=== PATIENT | female | born 1930 | race Caucasian/White ===

== ENCOUNTER 2017-05-29 12:31 | Inpatient (IN) | payer MEDICARE, MEDICAID ==
[~2017-05-29] VITALS: Ht 167.6 cm; Wt 68.0 kg
[~2017-05-29 12:31] MED LIST: ACEPHEN650 M1 RC; AKWA TEARS EYE15 ML OP; AKWA TEARS EYE15 ML OPHTHALMIC; ALBUTEROL0.63 MG/3 IH; ALBUTEROL2.5 MG/0.5 INH; AMLODIPINE BESY10 MG PO; ANTIVERT25 MG PO; APAP500; APAP500 PO; ASPIR 8181 MG PO; ASPIRIN EC325 M1 PO; ASPIRIN81 M2 PO; AUGMENTIN 875875 MG PO; AZO CRANBERRY1 EAC1 PO; B12INJ IM; BENADRYL25 MG PO; BICARSIM80 MG PO; BISACODYL SUPP10 MG RECTAL; CALCIUM 600 +1 EAC9 PO; CLEOCIN HCL300 MG PO; CLOTRIMAZOLE-BE15 GM TP; COLACE 100 MG100 MG PO; COLACE100 MG PO; DAILY VITE PO; DETROL LA4 MG PO; DOXYCYCLINE 10100 M1 PO; DULCOLAX5 MG PO; ELOCON15 G1 TOP; EUCERIN CREME57 GM TP; FEVERALL JR 32325 MG RE; FEVERALL325 MG RECTAL; FIORICET PO; FLEXERIL PO; FLORANEX TABLE1 EACH PO; FOLGARD OS TAB1 EACH PO; GLIPIZIDE 10 MG10 MG PO; GLIPIZIDE ER10 MG PO; GLIPIZIDE XL10 MG PO; GUIATUSSIN DAC473 ML PO; HYDROCODONE-AP1 EAC6 PO; INSULIN REGULAR; K-DUR10 ME1 PO; KLOR-CON 10 ER10 MEQ PO; LANTUS SOL100 UNIT/1 SQ; LANTUS100 UNIT/M SUBQ; LASIX 40 MG TAB40 M2 PO; LASIX 80 MG TAB80 M1 PO; LEVAQUIN 750 M750 MG PO; LISINOPRIL2.5 MG PO; LORTAB 5 MG/5001 TA1 PO; LOVASTAT40 PO; LOVASTATIN 20 M20 MG PO; MECLIZINE HCL12.5 MG PO; MILK OF MA2400 MG/10 PO; MIRALAX17 GM PO; MIRAPEX0.25 MG PO; NAMENDA 10 MG T10 MG PO; NOVOLIN N100 UNIT/1 SC; NOVOLIN N100 UNIT/3; NOVOLIN R100 UNIT/1 SC; NOVOLIN R100 UNIT/3; NOVOLOG100 UNIT/1 SUBQ; NPH; NYAMYC15 GM TOP; ONDANSETRON HCL4 M2 PO; OS-CAL 500+D C1 EACH PO; OYSTER SHELL C1 EA14 PO; OYSTER SHELL+D1 EAC1 PO; PEPCID20 MG PO; PHENERGAN50 MG/1 M1 IM; PHENERGAN50 MG/1 M1 IV; PREDNISONE 10 M10 MG PO; PRILOSEC 20 MG20 MG PO; ROBITUSSIN100 MG/53 PO; SENOKOT-S TABL1 EACH PO; SERTRALINE HCL25 M1 PO; SUDOGEST30 MG/5 ML PO; THEREMS-M1 EACH PO; THEREMS1 EAC1 PO; VENELEX OINTMEN60 GM TOP; VICKS VAPORUB170 G1 TOP; VICKS VAPORUB170 GM TP; VITAMIN A & D OI2 OZ TOP; VITAMIN E400 UNIT PO; VITAMINC500 PO; ZANTAC 150MG T150 MG PO; ZOLOFT25 MG PO; [UNRECOGNIZED DRUG - OTHER]; [UNRECOGNIZED DRUG - OTHER]; [UNRECOGNIZED DRUG - OTHER]; [UNRECOGNIZED DRUG - OTHER] TOP; [UNRECOGNIZED DRUG - OTHER] TOP
[2017-05-29 12:41] VITALS: BP 134/41
[2017-05-29] MEDS ORDERED: DOXYCYCLINE 10100 MG PO (12:52)
[2017-05-29] MEDS ORDERED: BISACODYL10 MG PO (12:53)
[2017-05-29] MEDS ORDERED: GLUTOSE GEL 1515 G1 PO (12:54)
[2017-05-29] MEDS ORDERED: VENELEX OINTMEN60 GM TOP (12:54)
[2017-05-29] MEDS ORDERED: ANTIVERT25 MG PO (12:54)
[2017-05-29] MEDS ORDERED: ARTIFICIAL TEA1 EACH OPHTHALMIC (12:55)
[2017-05-29] MEDS ORDERED: LEVEMIR SUBQ (12:55)
[2017-05-29] MEDS ORDERED: LIPITOR 20 MG T20 M1 PO (12:55)
--- NOTE | 2017-05-29 12:55 | NUR ---
SPOKE WITH PT NIKOLAS WILSON AND VERBAL PERMISSION GIVEN TO TREAT PT.
[2017-05-29 13:29] LABS: ABSOLUTE BASOPHILS 0.1 thou/uL (0.0-0.2); ABSOLUTE EOSINOPHILS 0.5 thou/uL (0.0-0.7); ABSOLUTE LYMPHOCYTES 2.7 thou/uL (0.8-5.3); ABSOLUTE MONOCYTES 1.3 thou/uL (0.0-1.2); ABSOLUTE NEUTROPHILS 8.7 thou/uL (1.6-8.1); BASOPHILS 0.8 %; EOSINOPHILS 3.7 %; HEMOGLOBIN 10.2 gm/dL (12.0-15.0); LYMPHOCYTES 20.4 %; MCH 29.9 pg (26.0-34.0); MCV 90.4 fL (80.0-100.0); MONOCYTES 9.6 %; MPV 8.5 fl. (7.2-11.1); NUCLEATED RBCS 0 /100WBC; PLATELET COUNT* 319 thou/uL (150-400); POLYS 65.5 %; RBC 3.43 mil/uL (4.20-5.00); RDW-CV 13.6 % (10.5-14.5); WBC 13.3 thou/uL (4.0-11.0)
[2017-05-29 13:38] LABS: CALCIUM 9.6 mg/dL (8.5-10.1); CREATININE 1.3 mg/dL (0.6-1.3)
[2017-05-29 13:39] LABS: POTASSIUM 5.9 mmol/L (3.5-5.1)
[2017-05-29 13:42] LABS: ALBUMIN 2.5 g/dL (3.4-5.0); TOTAL BILIRUBIN 0.3 mg/dL (<0.1-1.0); TOTAL PROTEIN 7.1 g/dL (6.4-8.2)
[2017-05-29 14:41] VITALS: BP 149/54
--- NOTE | 2017-05-29 15:41 | NUR ---
PATIENT ADMITTED FROM ER TO ROOM 103. ALERT AND ORIENTED X3. FORGETFUL- H/O DEMENTIA. ADMISSION HISTORY CHARTED TO BEST ABILITY DUE TO DEMENTIA. MULTIPLE WOUNDS NOTED. REDNESS UNDER BREAST AND GROINS. LEFT GREAT TOE NECROTIC, DRY. OPEN SORE LEFT BUTTOCK. PATIENT INCONTINENT OF BOTH URINE AND STOOL UPON ARRIVAL. MICHELE AREA CLEANED, AND BARRIER CREAM APPLIED. PATIENT POSITIONED ON RIGHT SIDE WITH HEELS ELEVATED. CULTURE OF TOE SENT TO LAB. BED ALARM SET. CALL LIGHT WITHIN REACH. WILL CONTINUE TO MONITOR.
--- NOTE | 2017-05-29 17:02 | NUR ---
PATIENT REMAINS AT BASELINE ORIENTATION. DENIES PAIN. ID AND PODIATRY CONSULTS. IVF INFUSING ORDERED. TOLERATING DINNER. INCONTINENT OF LARGE AMOUNT OF URINE. KAYEXALTE ORDERED FOR ELEVATED POTASSIUM. REPOSITIONED EVERY 2 HOURS. WOUND CARE CONSULT PLACED. NYSTATIN ORDERED. BED ALARM SET. WILL CONTINUE TO MONITOR.
[2017-05-30 00:59] VITALS: BP 105/43
[2017-05-30 04:54] LABS: CALCIUM 9.1 mg/dL (8.5-10.1); CREATININE 1.4 mg/dL (0.6-1.3)
[2017-05-30 05:12] LABS: ABSOLUTE BASOPHILS 0.1 thou/uL (0.0-0.2); ABSOLUTE EOSINOPHILS 0.4 thou/uL (0.0-0.7); ABSOLUTE LYMPHOCYTES 3.2 thou/uL (0.8-5.3); ABSOLUTE MONOCYTES 1.5 thou/uL (0.0-1.2); ABSOLUTE NEUTROPHILS 7.6 thou/uL (1.6-8.1); BASOPHILS 0.9 %; EOSINOPHILS 2.9 %; HEMATOCRIT 28.1 % (37.0-47.0); HEMOGLOBIN 9.5 gm/dL (12.0-15.0); MCHC 33.7 g/dL (28.0-37.0); MCV 89.1 fL (80.0-100.0); MONOCYTES 11.5 %; MPV 8.8 fl. (7.2-11.1); NUCLEATED RBCS 0 /100WBC; PLATELET COUNT* 304 thou/uL (150-400); POLYS 59.7 %; RBC 3.15 mil/uL (4.20-5.00); RDW-CV 13.4 % (10.5-14.5); WBC 12.7 thou/uL (4.0-11.0)
[2017-05-30 05:20] LABS: POTASSIUM 4.5 mmol/L (3.5-5.1)
[2017-05-30 07:30] VITALS: BP 184/58
[2017-05-30 07:55] VITALS: BP 184/58
--- NOTE | 2017-05-30 07:56 | NUR ---
PATIENT HAS SLEPT WELL THROUGHOUT THE NIGHT WITHOUT ANY ISSUES. PAIN HAS BEEN WELL CONTROLLED AND MEDICATION GIVEN AND CHARTED. PATIENT HAS REMAINED NON WEIGHT BEARING TO RIGHT LEG. VSS ON RA. IV IN LEFT FOREARM-SL. DRESSING TO RIGHT ANKLE IS C/D/I. FALL PRECAUTIONS IN PLACE AND HOURLY ROUNDS MADE. WILL CONTINUE WITH PLAN OF CARE AND NURSING TO MONITOR.
--- NOTE | 2017-05-30 08:01 | NUR ---
PATIENT HAS SLEPT WELL THROUGHOUT THE NIGHT WITHOUT ANY ISSUES. NO C/O PAIN. VSS ON RA. PATIENT HAS REMAINED NPO SINCE MIDNIGHT. PATIENT REPOSITIONED EVERY 2 HRS. PATIENT HAS BEEN INCONTINENT OF BOWEL AND BLADDER AND MICHELE CARE PERFORMED WELL BED CHANGES. IV IN LEFT WRIST- NS @ 100ML/HR. IV ABT GIVEN WITHOUT ANY ADVERSE SIDE EFFECTS NOTED. FALL PRECAUTIONS IN PLACE. HOURLY ROUNDS MADE. WILL CONTINUE WITH PLAN OF CARE.
--- NOTE | 2017-05-30 12:12 | NUR ---
WOUND CARE NOTE: CONSULT RECEIVED FOR PRESSURE ULCER. PATIENT PRESENTS WITH A HEALING STAGE 3 PRESSURE ULCER TO HER LEFT BUTTOCK AT LEFT ISCHIAL TUBEROSITY. WOUND MEASURES 0.8X0.3X0.1, SUBQ TISSUE PRESENT IN WOUND BED. WOUND BED IS MOIST, YELLOW. MICHELE-WOUND WITH NEW EPITHELIUM. WOUND WAS CLEANSED WITH WOUND CLEANSER, PATTED DRY. APPLIED AQUACEL AG TO WOUND BED AND SECURED WITH BORDERED FOAM. APPEARS THAT PATIENT SITS A LOT AT HOME, MULTIPLE AREAS OF SCAR TISSUE. BELIEVE SHE HAD PREVIOUS PRESSURE ULCERS TO HER RIGHT ISCHIAL TUBEROSITY AND SACROCOCCYGEAL AREA. PINK, BLANCHABLE. LEFT GREAT TOE WITH DRY, BLACK, STABLE ESCHAR. MICHELE-WOUND IS EDEMATOUS WITH ERYTHEMA. PLANS FOR SURGERY WITH DR. REEVES TODAY. RECOMMEND Q2 HOUR TURN, KEEP OFF WOUNDS LIMIT HOB <30 DEGREES FREQUENT INCONTINENCE CHECKS-HAD A BM SMEAR WHILE ASSESSING. CLEANSED AND PLACED NEW CHUX ENCOURAGE GOOD NUTRITION AND HYDRATION TIGHT BLOOD GLUCOSE CONTROL WAFFLE CUSHION IF UP IN CHAIR ELEVATE HEELS OFF BED
[2017-05-30 12:30] VITALS: BP 181/73
--- NOTE | 2017-05-30 12:52 | EKG ---
[place] [address] ELECTROCARDIOGRAM REPORT Name: TARSHA VILLA Room: [address] ADM IN M.R.#: [id number] Admission: 05/29/17 Attend Phys: Sharla Del Valle Discharge: Date of : 31 Report #: [id number] THIS REPORT FOR: //name// [facility] Test Date: 2017-05-30 Test Time: 12:25:35 Pat Name: TARSHABRENDEN VILLA Department: Room: [address] Gender: F Multiple Sclerosis Nurse: ROSA : 1930 Requested By: Jaswant Aguirre Order Number: [id number] Reading MD: Prosper Mckeon Measurements Intervals [place] Rate: 89 P: 47 IL: 175 QRS: 16 QRSD: 88 T: 31 QT: 378 QTc: 460 Interpretive Statements Sinus rhythm Multiple ventricular premature complexes Minimal ST depression, lateral leads Compared to ECG 04/21/2016 22:01:14 Ventricular premature complex(es) now present Sinus tachycardia no longer present Prolonged QT interval no longer present Electronically Signed On 05-30-2017 12:52:03 FOREST TECHNICIAN by Prosper Mckeon [email or web address] <ELECTRONICALLY SIGNED> By: Prosper Mckeon MD, FAC 05/30/17 1252 1225 1225 Prosper Mckeon MD, [facility] /EPI
--- NOTE | 2017-05-30 13:26 | CON ---
[address] [address] CONSULTATION Name: TARSHA VILLA Room: [address] IN ..#: [id number] Admission: 05/29/17 Attend Phys: Sharla Del Valle Discharge: Date of : 31 Report #: [id number] THIS REPORT FOR: //name// CC: Kiet Coronel CHIEF COMPLAINT AND HISTORY OF PRESENT ILLNESS: This is an 86-year-old female who was admitted to the hospital through the emergency room on 05/29/2017, with a right great toe wound with cellulitis. The patient has advanced dementia, and is unable to relate any past medical history regarding it. She says the area is painful with direct touch, but otherwise does not hurt her. She has been afebrile with no constitutional symptoms. [facility] a [facility] facility. I reviewed her allergies and medications in the electronic medical record. She is currently on parenteral vancomycin per infectious disease. Her blood cultures are negative thus far. Culture of the left great toe is pending with no organism seen on Gram stain. Left foot x-rays show bone destruction at the lateral cortex of the terminal tuft of the distal phalanx, which could be focal demineralization versus infection. I personally reviewed the radiology images and there is bone destruction underneath the dorsal interphalangeal wound with cortical destruction consistent with infectious sequestrum of the proximal phalange of the left hallux. This is directly underlying the dorsal hallux interphalangeal joint wound. This is a separate lesion than the one described in the radiology report, which is at the distal lateral tuft of the distal phalange. LABS: WBC 12.7, RBC 3.15, hemoglobin 9.5, hematocrit 28.1, and platelets 304. BUN 25, creatinine 1.4, and glucose 70. PHYSICAL EXAMINATION: There is a large dry necrotic wound overlying the left hallux interphalangeal joint, this is at the dorsal aspect with localized inflammation and edema consistent with deep tissue infection. The wound has a dry, black-brown eschar with no drainage or culturable material. The foot is warm with a palpable posterior tibial pulse. I can Doppler both the dorsalis pedis and posterior tibial pulses bilaterally with the Doppler unit. There is no pallor or cyanosis to either extremity. There is a flexion hammertoe deformity of the left great toe at the interphalangeal joint. I cannot visualize the bone, but the wound is clearly necrotic through the subcutaneous tissue layer based on the thickness of the eschar. Toenails are dystrophic without paronychia. IMPRESSION: Osteomyelitis, left great toe at dorsal hallux interphalangeal joint with deep tissue infection. PLAN: I recommend amputation of the left great toe at the first MTP joint with primary closure. I feel that just a local debridement of the wound and bone will require a protracted measure of wound care with possible reinfection of the bone and subsequent hallux amputation anyway. [place] [address] CONSULTATION Name: TARSHA VILLA Room: [address] IN [facility]#: [id number] Admission: 05/29/17 Attend Phys: Sharla Del Valle Discharge: Date of : 31 Report #: [id number] Dopplers for long-term wound healing potential and consult vascular surgery regarding same. I discussed with, Dr. Coronel, internal medicine today. We will obtain informed consent from the durable power of water pollution scientist. <ELECTRONICALLY SIGNED> By: Jaswant Aguirre DPM 05/30/17 1326 1034 [id number] Aguirre DPM /derian
[2017-05-30 13:50] VITALS: BP 181/73
--- NOTE | 2017-05-30 14:15 | NUR ---
PATIENT TAKEN TO SURGERY AT THIS TIME. CONSENTS ON CHART AND VERBAL CONSENT OBTAINED BY PATIENT'S DPOA OVER THE TELEPHONE. PATIENT TAKEN VIA BED.
--- NOTE | 2017-05-30 15:42 | NUR ---
PT OFF UNIT FOR SURGERY. 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 DTR/VALENTIN IS DPOA. WILL FOLLOW
[2017-05-30 17:20] VITALS: BP 188/66
--- NOTE | 2017-05-30 18:46 | NUR ---
PATIENT HAS BEEN A/O TO PERSON AND PLACE THIS SHIFT, PLEASANTLY CONFUSED. PATIENT TAKEN TO SURGERY THIS AFTERNOON FOR TOE AMPUTATION. PATIENT HAS DENIED PAIN. INCONTINENT OF URINE AND STOOL THIS SHIFT. MICHELE-CARE PROVIDED WITH EVERY INCONTINENT EPISODE. REPOSITIONED EVERY 2 HOURS. HEELS ELEVATED. IV FLUIDS AND ANTIBIOTICS GIVEN ORDERED. BLOOD SUGARS MONITORED. FALL PRECUATIONS IN PLACE. CALL LIGHT WITHIN REACH. WILL CONTINUE WITH PLAN OF CARE.
[2017-05-31 00:27] VITALS: BP 156/47
[2017-05-31 04:30] LABS: ABSOLUTE BASOPHILS 0.1 thou/uL (0.0-0.2); ABSOLUTE EOSINOPHILS 0.5 thou/uL (0.0-0.7); ABSOLUTE LYMPHOCYTES 3.3 thou/uL (0.8-5.3); ABSOLUTE MONOCYTES 1.2 thou/uL (0.0-1.2); ABSOLUTE NEUTROPHILS 6.1 thou/uL (1.6-8.1); BASOPHILS 1.1 %; EOSINOPHILS 4.7 %; HEMATOCRIT 27.9 % (37.0-47.0); LYMPHOCYTES 29.4 %; MCH 29.2 pg (26.0-34.0); MCHC 32.2 g/dL (28.0-37.0); MCV 90.6 fL (80.0-100.0); MPV 8.3 fl. (7.2-11.1); NUCLEATED RBCS 0 /100WBC; PLATELET COUNT* 270 thou/uL (150-400); POLYS 53.8 %; RBC 3.08 mil/uL (4.20-5.00); RDW-CV 13.3 % (10.5-14.5); WBC 11.3 thou/uL (4.0-11.0)
[2017-05-31 04:32] VITALS: BP 189/58
[2017-05-31 04:48] LABS: CALCIUM 7.9 mg/dL (8.5-10.1); CREATININE 1.1 mg/dL (0.6-1.3); POTASSIUM 3.7 mmol/L (3.5-5.1)
--- NOTE | 2017-05-31 06:53 | NUR ---
PATIENT HAS SLEPT WELL THROUGHOUT THE NIGHT WITHOUT ANY ISSUES. PATIENT DENIES PAIN. DRESSING TO LEFT FOOT IS C/D/I. VSS ON RA, ALTHOUGH BP ELEVATED. MEDICATIONS GIVEN AND CHARTED, AND ASSESSMENT CHARTED. IV IN LEFT FOREARM-NS @ 100ML/HR. IV ABT GIVEN WITHOUT ANY ADVERSE SIDE EFFECTS NOTED. FALL PRECAUTIONS IN PLACE AND HOURLY ROUNDS MADE. WILL CONTINUE WITH PLAN OF CARE AND NURSING TO MONITOR.
--- NOTE | 2017-05-31 10:53 | CON ---
[address] [address] CONSULTATION Name: TARSHA VILLA Room: [address] IN [facility].#: [id number] Admission: 05/29/17 Attend Phys: Sharla Del Valle Discharge: Date of : 31 Report #: [id number] THIS REPORT FOR: //name// CC: Kiet Coronel DATE OF SERVICE: 05/30/2017 ATTENDING PHYSICIAN: Dr. Coronel REASON FOR EVALUATION: Left great toe chronic lesion with eschar, suspected osteomyelitis involving the first digit. HISTORY OF PRESENT ILLNESS: Chart reviewed, patient examined. This is an 86-year-old female with extensive medical history including diabetes mellitus complicated by vasculopathy, also has dementia, is fairly profound, who per record primarily has the lesion involving the left great toe for roughly 3 weeks. She does note that it hurts, although she is unable to give too many details in terms of antecedent injury or potential inciting factors. Evaluation including imaging raised suspicion of some bony changes consistent with osteomyelitis. She is scheduled to have operative intervention and likely toe amputation per Dr. Aguirre. She has not been febrile during her visit thus far. Empirically started on vancomycin. Blood cultures and ____ superficial culture in progress thus far. ____ organisms have been isolated. She does complain of about pain. When questioned, denies significant breathing difficulty or gastrointestinal related complaints, so I am uncertain kind of appetite she has. ALLERGIES: Listed to OPIOID, SULFA, CODEINE, ZINC, ____. CURRENT MEDICATIONS: Include vancomycin, pramipexole, atorvastatin, insulin, famotidine, meclizine, lisinopril, ipratropium and albuterol inhaler, p.r.n. analgesics, antiemetics. PAST MEDICAL HISTORY: As noted above, diabetes mellitus type 2, history of hypertension, osteoarthritis, chronic lower extremity edema, venous stasis insufficiency, restless legs syndrome, osteoporosis, psoriasis, history of depression, previous stroke x 2, hyperlipidemia. SOCIAL HISTORY: Nonsmoker, no ethanol. FAMILY HISTORY: Noncontributory. REVIEW OF SYSTEMS: Not reliably obtained. PHYSICAL EXAMINATION: GENERAL: She appears chronically ill, undernourished, acute [place] [address] CONSULTATION Name: TARSHA VILLA Room: [address]#: [id number] Admission: 05/29/17 Attend Phys: Sharla Del Valle Discharge: Date of : 31 Report #: [id number] sort of manipulation of her place in bed causes presumed pain. VITAL SIGNS: Temperature 99, pulse 89, respirations 16, blood pressure 181/73. SKIN: Warm. HEENT: Unremarkable. NECK: Supple. LUNGS: Diminished breath sounds. HEART: Regular, has some ectopy. I do not appreciated murmur. ABDOMEN: Soft. There are no apparent peritoneal signs. EXTREMITIES: Left lower extremity great toe has a dried eschar, some moderate degree of surface inflammation at the margins and does appear to be somewhat tender to palpation. Distal pulses are diminished. GENITOURINARY: Deferred. RECTAL: Deferred. LABORATORY DATA: Blood cultures sterile thus far. CBC: White count is 12.7, H and H 9.5 and 28.1, platelets of 304. Electrolytes: Sodium 145, potassium 4.5, chloride 110, bicarbonate is 27, BUN and creatinine 25 and 1.4. ____ culture is pending. Operative cultures are pending as well. Lactic acid of 1.4. Liver functions unremarkable. Albumin of 25, total protein 7.1. Estimated GFR of 39. ASSESSMENT AND PLAN: Chronic ulceration involving the left great toe. We will await findings at surgery and I think it is reasonable to continue empiric antimicrobial therapy. I think it is unlikely that there is deeper infection. She is certainly at significant medical conditions that compromise her overall risk for surgery as well as postoperative period. We will have to monitor expectantly. <ELECTRONICALLY SIGNED> By: Jim Chen MD 05/31/17 1053 1507 [id number] Chen MD /nt
--- NOTE | 2017-05-31 14:25 | NUR ---
PT.HAS DISCHARGE ORDERS TO RETURN TO [facility] TODAY ON IV VANCOMYCIN. SHE IS GETTING PICC LINE PLACED AT PRESENT. NOTIFIED SID/[facility]AD[facility] OF RETURN. SHE WILL HAVE VAN PICK PT.UP BETWEEN [phone]. [facility].S.WILL FAX ORDERS TO [facility] WHEN PT.RETURNS FROM GETTING PICC LINE. CM NOTIFIED DAUGHTER,STEVE,AT [phone].
--- NOTE | 2017-05-31 14:57 | NUR ---
CONSULTED TO PLACE PICC FOR CERAMIC SPRAYER ATB THERAPY. ORDER AND CONSENT NOTED. PROCEDURE WELL RISK AND BENIFIT DISCUSSED WITH PT WHO VERBALIZED UNDERSTANDING. TIGHT UPPER ARM BASILIC WAS WIDLEY PATENT. A 3FR. SINGLE LUMAN POWER PICC PLACED USING STERILE TECHNIQUE INCLUDING MAX [facility]. LINE TRIMMED TO 44CM ADN ADVANCED WITHOUT DIFFICULTY. LINE CONFIRMEDAT 0CM EXTERNAL WITH SHERLOCK 3CG. LINE SECURED AND RELEASED FOR USE. TOLERATED WELL.
[2017-05-31 15:04] VITALS: BP 180/58
--- NOTE | 2017-05-31 15:10 | NUR ---
PT.NEEDED ART.DOPPLER PRIOR TO DISCHARGE. CM CANCELLED WC VAN FOR 1530 AND SET UP VAN WITH [id number] FOR 1700. MATIAS HAMPTON WILL CALL DAUGHTER TO INFORM HER OF LATER TRANSFER TIME. CHART COPIED TO GO WITH PT. BERTA WILL CALL REPORT TO [facility]
--- NOTE | 2017-05-31 18:07 | NUR ---
PATIENT LEFT UNIT AT 1800. ALERT AND ORIENTED X4. UP WITH ASSIST X2 WITH GAIT BELT. IV DC'D. PICC LINE PATENT AND SALINE LOCKED AT DC. DENIES PAIN AND NAUSEA. ALL PERSONAL ITEMS LEFT WITH PATIENT. DISCHARGE INSTRUCTIONS SENT WITH PATIENT. VSS ON ROOM AIR. HOURLY ROUNDS HAVE BEEN MAINTAINED THROUGHOUT SHIFT. LEFT WITH TRANSPORTER VIA WHEEL CHAIR VAN.
[2017-05-31 18:29] VITALS: BP 180/58
--- NOTE | 2017-06-01 15:45 | S ---
[address] [address] SURGICAL PATH RPT PROCEDURE Name: TARSHA SALGADO Danielle Room: [address]#: [id number] Admission: 05/29/17 Date of : 31 Discharge: 05/31/17 Report #: [id number] Path Case #: [id number] PATHOLOGY REPORT COLLECTION DATE: 05/30/2017 RECEIVED DATE: 05/30/2017 SUBMITTING PHYS: Dr. Jaswant Aguirre OTHER PHYS: Dr. Velasquez Lacey SPECIMEN(S) RECEIVED: A.Left great toe * * * * * * * * * * * * FINAL DIAGNOSIS: Left great toe: - Benign great toe with non-specific ulceration, acute inflammation of soft tissues and prominent osteomyelitis of phalangeal bones. - Separate benign osteocartilaginous segment with prominent osteomyelitis at jagged (black-inked) end and opposite cartilaginous end free of osteomyelitis and with severe calcifying arteriosclerosis. (see comment) COMMENT: Review of Dr. Aguirre's operative report dated 05/30/2017 reveals the left great toe was amputated at the first MTP joint with a sample of proximal phalanx clinically suspicious for osteomyelitis having been submitted for cultures. (DOT:; 06/01/2017) PATHOLOGIST: Chester Garsia M.D. REPORT ELECTRONICALLY SIGNED BY: Chester Garsia M.D. DATE/TIME: 06/01/2017 15:44 * * * * * * * * * * * * GROSS PATHOLOGY: Received in formalin labeled "Tarsha Salgado, left great toe," is a toe amputation specimen measuring 4.0 x 2.7 x 2.2 cm in greatest dimensions. The bone margin is smooth and concave in appearance, grossly consistent with disarticulation. The dorsal skin surface displays a well-circumscribed, ulcerative and boucher-brown to dark brown lesion measuring 2.9 x 0.6 cm that extends the entire length of the dorsal soft tissue margin. The remaining epidermal surface is partially flaky and wrinkled pale boucher to pink-boucher in appearance. A nail is present that is opaque and pale yellow-boucher. The surgical margin is inked black. A full-thickness cross section is submitted proximal to distal in cassettes A1 and A2, [place] [address] SURGICAL PATH RPT PROCEDURE Name: TARSHA SALGADO Room: [address]#: [id number] Admission: 05/29/17 Date of : 31 Discharge: 05/31/17 Report #: [id number] Path Case #: [id number] Also received within the specimen container is a segment of bone with attached pearlescent pale pink-boucher soft tissue measuring 3.7 x 2.3 x 2.0 cm in greatest dimensions. One bone margin is smooth and convex to jagged in appearance; this margin is inked black. The opposite bone margin is smooth and concave in appearance, consistent with disarticulation; this margin is inked red. A full-thickness cross section is submitted in cassettes A3 and A4 following decalcification, with the convex/jagged margin in cassette A3 and the concave margin in cassette A4. (DAC; 05/31/2017) CLINICAL HISTORY: Osteomyelitis INITIAL CPT CODE(S): A; 34405, 53808 Professional services performed by [facility] [place] [address] Technical services performed by [facility] at [address] [place] [address], [address], [place] [address]. [facility] [address] [place] [address] PHONE: [phone] DIRECTOR: Marcos Matias M.D. * * * END OF REPORT * * *
--- NOTE | 2017-06-13 13:12 | OP ---
[address] [address] OPERATIVE REPORT Name: TARSHA VILLA Room: [address]#: [id number] Admission: 05/29/17 Attend Phys: Sharla Del Valle Discharge: 05/31/17 Date of : 31 Report #: [id number] THIS REPORT FOR: //name// CC: MD Velasquez Quinonez DATE OF SERVICE: 05/30/2017 SURGEON: Jaswant Aguirre DPM PREOPERATIVE DIAGNOSIS: Osteomyelitis with nonhealing ulceration, left dorsal hallux interphalangeal joint complicated by diabetes mellitus. POSTOPERATIVE DIAGNOSIS: Osteomyelitis with nonhealing ulceration, left dorsal hallux interphalangeal joint complicated by diabetes mellitus. PROCEDURES: 1. Amputation, left great toe at first MTP joint with primary closure. 2. Skin flap, left foot. 3. Incision and drainage, left foot. ANESTHESIA: MAC. INJECTABLES: 30 mL of 1:1 mixture of 0.5% Marcaine plain and 1% lidocaine plain. SPECIMENS: Left great toe. CULTURES: 1. Bone, proximal phalanx of left great toe for aerobic and anaerobic. 2. Soft tissue, left great toe, aerobic and anaerobic. SUTURES: 3-0 nylon. ESTIMATED BLOOD LOSS: Minimal. HEMOSTASIS: Left ankle pneumatic tourniquet at 250 mmHg. COMPLICATIONS: None. DESCRIPTION OF PROCEDURE: The patient was brought to the OR and placed on the table supine with induction of MAC anesthesia. A well-padded left ankle pneumatic tourniquet was placed. The extremity was prepped and draped aseptically and the foot was exsanguinated with inflation of the tourniquet. A #15 blade was used to create an incision circumferentially around the left great [address] [address] OPERATIVE REPORT Name: TARSHA VILLA Room: [address]#: [id number] Admission: 05/29/17 Attend Phys: Sharla Del Valle Discharge: 05/31/17 Date of : 31 Report #: [id number] toe with layered anatomic dissection and disarticulation at the first MTP joint. Electrocautery was utilized for intraoperative hemostasis. The extensor and flexor tendons were transected and the wound was debrided of tissue to allow adequate closure of the skin. The articular surface of the first metatarsal head had normal appearance with no purulence or signs of osteomyelitis at this level. The skin margins were revised with a surgical blade to allow proper closure and I advanced the medial skin flap laterally and sutured it with 3-0 nylon. The wound was flushed with sterile saline with bacitracin irrigant prior to closure. The incision was closed with 3-0 nylon in simple interrupted fashion to achieve complete closure. The foot was cleansed and dried and dressed with Betadine-soaked Adaptic, fluffs, ABDs and Kerlix bandage. Prior to bandage application, the tourniquet was deflated with vascular return to the foot. I submitted a sample of bone from the proximal phalange, which was soft and necrotic consistent with osteomyelitis. I submitted this for aerobic and anaerobic bone cultures. I also submitted some surrounding necrotic tissue for soft tissue cultures and the remaining great toe was sent for surgical pathology. The patient left the OR with no complications noted. <ELECTRONICALLY SIGNED> By: Jaswant Aguirre DPM 06/13/17 1312 1631 1715Daradha Aguirre DPM /nt
[2018-03-06] MEDS ORDERED: BENADRYL25 MG PO (11:01)
== END 2017-05-31 18:00 | DRG 616 ==
LOC: M.ERS 12:31 → M.ORTHSURG 13:17 → M.TBA-ER 13:17 → M.ORTHSURG 14:14
PROVIDERS: Physician Assistant; ADMIT Internal Medicine
PROC: 0HRNXJZ Replacement of Left Foot Skin with Synthetic Substitute, External Approach (ICD-10-PCS; principal; 2017-05-30)
PROC: 0Y6Q0Z0 Detachment at Left 1st Toe, Complete, Open Approach (ICD-10-PCS; principal; 2017-05-30)
PROC: 05HB33Z Insertion of Infusion Device into Right Basilic Vein, Percutaneous Approach (ICD-10-PCS; 2017-05-31)
DX: E11.69 Type 2 diabetes mellitus with other specified complication (principal); L89.323 Pressure ulcer of left buttock, stage 3; L89.313 Pressure ulcer of right buttock, stage 3; M86.9 Osteomyelitis, unspecified; I96 Gangrene, not elsewhere classified; L97.829 Non-pressure chronic ulcer of other part of left lower leg with unspecified severity; G25.81 Restless legs syndrome; M81.0 Age-related osteoporosis without current pathological fracture; L40.9 Psoriasis, unspecified; F32.9 Major depressive disorder, single episode, unspecified; E78.5 Hyperlipidemia, unspecified; E11.51 Type 2 diabetes mellitus with diabetic peripheral angiopathy without gangrene; E66.9 Obesity, unspecified; F03.90 Unspecified dementia, unspecified severity, without behavioral disturbance, psychotic disturbance, mood disturbance, and anxiety; M19.90 Unspecified osteoarthritis, unspecified site; E87.5 Hyperkalemia; L08.9 Local infection of the skin and subcutaneous tissue, unspecified; N18.3 Chronic kidney disease, stage 3 (moderate); E11.22 Type 2 diabetes mellitus with diabetic chronic kidney disease; I12.9 Hypertensive chronic kidney disease with stage 1 through stage 4 chronic kidney disease, or unspecified chronic kidney disease; K21.9 Gastro-esophageal reflux disease without esophagitis; B37.2 Candidiasis of skin and nail; E83.51 Hypocalcemia; Z88.2 Allergy status to sulfonamides; Z88.5 Allergy status to narcotic agent; Z88.8 Allergy status to other drugs, medicaments and biological substances; Z68.24 Body mass index [BMI] 24.0-24.9, adult; Z86.73 Personal history of transient ischemic attack (TIA), and cerebral infarction without residual deficits

== ENCOUNTER → 2017-06-06 | Outpatient (CLI) | payer MEDICARE, MEDICAID ==
[~2017-06-06] MED LIST changes: +ARTIFICIAL TEA1 EACH OPHTHALMIC; +ARTIFICIAL TEAR15 M1 OPHTHALMIC; +BACTROBAN CREAM30 G1 TOP; +BISACODYL10 MG PO; +CARVEDILOL3.125 MG PO; +CATAPRES-TTS 11 EACH TRANSDERM; +CEFUROXIME500 MG PO; +CYANOCOBAL1000 MCG/1 SUBQ; +DOXYCYCLINE 10100 MG PO; +GLUCAGON EMERGEN1 MG IM; +GLUTOSE GEL 1515 G1 PO; +HYDROCODON-ACE1 EAC7 PO; +LEVAQUIN 250 M250 MG PO; +LEVEMIR SUBQ; +LIPITOR 20 MG T20 M1 PO; +LISINOPRIL5 MG PO; +MACROBID 100 M100 M2 PO; +MELATONIN5 M1 PO; +MYLANTA PO; +NORVASC5 MG PO; +NYAMYC15 GM; +PHENERGAN 25 MG25 M1 PO; +PLAVIX 75 MG TA75 M1 PO; +PROBIOTIC1 EAC1 PO; +REMERON15 MG PO; +TYLENOL325 MG PO; +VANCOMYCIN500 MG/VIA IV; +VENELEX OINTMEN60 GM INTRADERM; +ZYVOX600 MG PO
== END ==
LOC: M.WC 01:46
DX: T87.89 Other complications of amputation stump (principal); E11.40 Type 2 diabetes mellitus with diabetic neuropathy, unspecified; E11.51 Type 2 diabetes mellitus with diabetic peripheral angiopathy without gangrene; I10 Essential (primary) hypertension; E78.5 Hyperlipidemia, unspecified; M19.90 Unspecified osteoarthritis, unspecified site; M81.0 Age-related osteoporosis without current pathological fracture; F32.9 Major depressive disorder, single episode, unspecified; F03.90 Unspecified dementia, unspecified severity, without behavioral disturbance, psychotic disturbance, mood disturbance, and anxiety; Z72.89 Other problems related to lifestyle; Z86.73 Personal history of transient ischemic attack (TIA), and cerebral infarction without residual deficits; Z90.710 Acquired absence of both cervix and uterus; Y83.5 Amputation of limb(s) as the cause of abnormal reaction of the patient, or of later complication, without mention of misadventure at the time of the procedure

== ENCOUNTER → 2017-06-13 | Outpatient (CLI) | payer MEDICARE, MEDICAID ==
--- NOTE | 2017-06-14 10:35 | CON ---
[address] [address] CONSULTATION Name: TARSHA VILLA Room: [facility] Andre#: [id number] Admission: 06/13/17 Attend Phys: Jaswant Aguirre DPM Discharge: Date of : 31 Report #: [id number] THIS REPORT FOR: //name// CC: Jaswant Lacey DATE OF SERVICE: 06/13/2017 INFECTIOUS DISEASE CONSULTATION FOLLOWUP HISTORY OF PRESENT ILLNESS: The patient returns for followup of ongoing treatment for chronic osteomyelitis involving her left great toe. She is post-digit osteoectomy completed roughly 2 weeks of parenteral therapy with vancomycin for Staphylococcus aureus. Generally, she has been doing fairly well. From her standpoint, denies any fevers or chills. She states her appetite is good. She is not having significant pain-related discomfort associated with the operative site. Evaluation of the sutures remained intact. There is no evidence of recent drainage. Overall, there is mild to perhaps moderate degree of inflammation at this point. ASSESSMENT AND PLAN: Chronic osteomyelitis. We will continue the current approach with parenteral antimicrobial therapy, weekly labs. We will see her in 2 weeks tentatively with planned of 6-week course. Wound care per Dr. Aguirre. <ELECTRONICALLY SIGNED> By: Jim Chen MD 06/14/17 1035 1548 [id number] Chen MD /nt
== END ==
LOC: M.WC 01:40
DX: T87.89 Other complications of amputation stump (principal); E11.621 Type 2 diabetes mellitus with foot ulcer; L97.521 Non-pressure chronic ulcer of other part of left foot limited to breakdown of skin; E11.40 Type 2 diabetes mellitus with diabetic neuropathy, unspecified; I10 Essential (primary) hypertension; M19.90 Unspecified osteoarthritis, unspecified site; E66.9 Obesity, unspecified; E11.51 Type 2 diabetes mellitus with diabetic peripheral angiopathy without gangrene; F32.9 Major depressive disorder, single episode, unspecified; E78.5 Hyperlipidemia, unspecified; F03.90 Unspecified dementia, unspecified severity, without behavioral disturbance, psychotic disturbance, mood disturbance, and anxiety; Z86.73 Personal history of transient ischemic attack (TIA), and cerebral infarction without residual deficits; Z87.891 Personal history of nicotine dependence; Z90.710 Acquired absence of both cervix and uterus; Y83.5 Amputation of limb(s) as the cause of abnormal reaction of the patient, or of later complication, without mention of misadventure at the time of the procedure

== ENCOUNTER → 2017-06-27 | Outpatient (CLI) | payer MEDICARE, MEDICAID ==
--- NOTE | 2017-06-28 11:48 | CON ---
[address] [address] CONSULTATION Name: SHEILA VILLABRENDEN Santos Room: [facility]#: [id number] Admission: 06/27/17 Attend Phys: Jaswant Aguirre DPM Discharge: Date of : 31 Report #: [id number] THIS REPORT FOR: //name// CC: Jaswant Lacey DATE OF SERVICE: 06/27/2017 ATTENDING PHYSICIAN: Jaswant Aguirre DPM HISTORY OF PRESENT ILLNESS: The patient returns today in followup, having undergone left great toe amputation for chronic osteomyelitis as this was a wound related, completed roughly 4 weeks of parenteral therapy. She denies any significant amount of localizing pain, although does occasionally hurt, is not a consistent discomfort. She denies any particular systemic illness. Her appetite is good. PHYSICAL EXAMINATION: EXTREMITIES: The wound was apparently erythematous since it had been debrided and wrapped, sutures have been removed. Culture was collected. PLAN: She has completed 4 weeks of planned 6-week course of therapy. We will continue current approach as prescribed. We will await those cultures, make adjustments as needed. Wound care as per Dr. Aguirre, will see her in 2 weeks. <ELECTRONICALLY SIGNED> By: Jim Chen MD 06/28/17 1148 2058 [id number] Chen MD /nt
== END ==
LOC: M.WC 04:49
DX: T87.89 Other complications of amputation stump (principal); E11.621 Type 2 diabetes mellitus with foot ulcer; L97.521 Non-pressure chronic ulcer of other part of left foot limited to breakdown of skin; L89.893 Pressure ulcer of other site, stage 3; E11.40 Type 2 diabetes mellitus with diabetic neuropathy, unspecified; M19.90 Unspecified osteoarthritis, unspecified site; F32.9 Major depressive disorder, single episode, unspecified; E11.51 Type 2 diabetes mellitus with diabetic peripheral angiopathy without gangrene; E78.5 Hyperlipidemia, unspecified; F03.90 Unspecified dementia, unspecified severity, without behavioral disturbance, psychotic disturbance, mood disturbance, and anxiety; I10 Essential (primary) hypertension; E66.9 Obesity, unspecified; Z87.891 Personal history of nicotine dependence; Z90.710 Acquired absence of both cervix and uterus; Z86.73 Personal history of transient ischemic attack (TIA), and cerebral infarction without residual deficits; Y83.5 Amputation of limb(s) as the cause of abnormal reaction of the patient, or of later complication, without mention of misadventure at the time of the procedure

== ENCOUNTER → 2017-07-04 | Outpatient (CLI) | payer MEDICARE, MEDICAID | LOC: M.WC 01:57 | DX: T87.89 Other complications of amputation stump (principal); E11.621 Type 2 diabetes mellitus with foot ulcer; L97.521 Non-pressure chronic ulcer of other part of left foot limited to breakdown of skin; L89.893 Pressure ulcer of other site, stage 3; I10 Essential (primary) hypertension; M19.90 Unspecified osteoarthritis, unspecified site; E11.51 Type 2 diabetes mellitus with diabetic peripheral angiopathy without gangrene; F32.9 Major depressive disorder, single episode, unspecified; E78.5 Hyperlipidemia, unspecified; F03.90 Unspecified dementia, unspecified severity, without behavioral disturbance, psychotic disturbance, mood disturbance, and anxiety; E66.9 Obesity, unspecified; Z87.891 Personal history of nicotine dependence; Z90.710 Acquired absence of both cervix and uterus; Y83.5 Amputation of limb(s) as the cause of abnormal reaction of the patient, or of later complication, without mention of misadventure at the time of the procedure ==

== ENCOUNTER → 2017-07-11 | Outpatient (CLI) | payer MEDICARE, MEDICAID ==
--- NOTE | 2017-07-12 13:08 | CON ---
[address] [address] CONSULTATION Name: SHEILA VILLABRENDEN Santos Room: [facility]#: [id number] Admission: 07/11/17 Attend Phys: Jaswant Aguirre DPM Discharge: Date of : 31 Report #: [id number] THIS REPORT FOR: //name// CC: Jaswant Lacey DATE OF SERVICE: 07/11/2017 INFECTIOUS DISEASE CONSULTATION ATTENDING PHYSICIAN: Jaswant Aguirre DPM REASON FOR CONSULTATION: She is here for left great toe osteomyelitis post amputation. HISTORY OF PRESENT ILLNESS: The patient returns in followup having completed roughly 6 weeks of parenteral therapy. On questioning, she denies any particular associated discomfort and had not been systemically ill. She states her appetite has been generally pretty good. The appearance of the site shows some degree of healing, although there is suggestion of ischemic component as well. It was debrided and then was able to draw some blood. ASSESSMENT AND PLAN: Chronic osteomyelitis. At this point, I am going to discontinue the parenteral therapy, schedule to see Vascular Surgery. We will maintain the PICC line for the moment. We will see her as needed. <ELECTRONICALLY SIGNED> By: Jim Chen MD 07/12/17 1308 2048 [id number] Chen MD /nt
== END ==
LOC: M.WC 02:06
DX: T87.89 Other complications of amputation stump (principal); E11.621 Type 2 diabetes mellitus with foot ulcer; L97.521 Non-pressure chronic ulcer of other part of left foot limited to breakdown of skin; L89.893 Pressure ulcer of other site, stage 3; M19.90 Unspecified osteoarthritis, unspecified site; I10 Essential (primary) hypertension; E66.9 Obesity, unspecified; E11.51 Type 2 diabetes mellitus with diabetic peripheral angiopathy without gangrene; Z90.710 Acquired absence of both cervix and uterus; F32.9 Major depressive disorder, single episode, unspecified; Z86.73 Personal history of transient ischemic attack (TIA), and cerebral infarction without residual deficits; E78.5 Hyperlipidemia, unspecified; F03.90 Unspecified dementia, unspecified severity, without behavioral disturbance, psychotic disturbance, mood disturbance, and anxiety; Z87.891 Personal history of nicotine dependence; Y83.5 Amputation of limb(s) as the cause of abnormal reaction of the patient, or of later complication, without mention of misadventure at the time of the procedure

== ENCOUNTER → 2017-07-18 | Outpatient (CLI) | payer MEDICARE, MEDICAID | LOC: M.WC 02:23 | DX: T87.89 Other complications of amputation stump (principal); E11.621 Type 2 diabetes mellitus with foot ulcer; L97.521 Non-pressure chronic ulcer of other part of left foot limited to breakdown of skin; L89.893 Pressure ulcer of other site, stage 3; E11.40 Type 2 diabetes mellitus with diabetic neuropathy, unspecified; M19.90 Unspecified osteoarthritis, unspecified site; E66.9 Obesity, unspecified; E11.51 Type 2 diabetes mellitus with diabetic peripheral angiopathy without gangrene; F32.9 Major depressive disorder, single episode, unspecified; E78.5 Hyperlipidemia, unspecified; F03.90 Unspecified dementia, unspecified severity, without behavioral disturbance, psychotic disturbance, mood disturbance, and anxiety; I10 Essential (primary) hypertension; Z87.891 Personal history of nicotine dependence; Z90.710 Acquired absence of both cervix and uterus; Y83.5 Amputation of limb(s) as the cause of abnormal reaction of the patient, or of later complication, without mention of misadventure at the time of the procedure ==

== ENCOUNTER → 2017-07-25 | Outpatient (CLI) | payer MEDICARE, MEDICAID ==
[~2017-07-25] VITALS: Ht 162.6 cm; Wt 69.9 kg
[2017-07-25] VITALS (7 sets, daily range): BP systolic 139–200; BP diastolic 65–98
[2017-07-25 13:28] LABS: ABSOLUTE BASOPHILS 0.2 thou/uL (0.0-0.2); ABSOLUTE EOSINOPHILS 0.5 thou/uL (0.0-0.7); ABSOLUTE LYMPHOCYTES 2.4 thou/uL (0.8-5.3); ABSOLUTE MONOCYTES 1.6 thou/uL (0.0-1.2); ABSOLUTE NEUTROPHILS 13.1 thou/uL (1.6-8.1); BASOPHILS 0.9 %; EOSINOPHILS 2.9 %; HEMATOCRIT 41.6 % (37.0-47.0); HEMOGLOBIN 13.2 gm/dL (12.0-15.0); LYMPHOCYTES 13.6 %; MCH 28.1 pg (26.0-34.0); MCHC 31.7 g/dL (28.0-37.0); MCV 88.6 fL (80.0-100.0); MPV 9.5 fl. (7.2-11.1); NUCLEATED RBCS 0 /100WBC; PLATELET COUNT* 233 thou/uL (150-400); POLYS 73.6 %; RDW-CV 14.7 % (10.5-14.5); WBC 17.8 thou/uL (4.0-11.0)
[2017-07-25 13:35] LABS: CALCIUM 10.1 mg/dL (8.5-10.1); CREATININE 1.3 mg/dL (0.6-1.3); POTASSIUM 4.7 mmol/L (3.5-5.1)
[2017-07-25 13:40] LABS: ALBUMIN 3.1 g/dL (3.4-5.0); TOTAL BILIRUBIN 0.5 mg/dL (<0.1-1.0); TOTAL PROTEIN 7.8 g/dL (6.4-8.2)
--- NOTE | 2017-08-08 15:28 | OP ---
[facility] [address] [place] [address] OPERATIVE REPORT Name: TARSHA VILLA Room: [facility]#: [id number] Admission: 07/25/17 Attend Phys: Sharla Alonso Discharge: Date of : 31 Report #: [id number] THIS REPORT FOR: //name// CC: Miller [facility] DATE OF SERVICE: 07/25/2017 PREOPERATIVE DIAGNOSIS: Peripheral vascular disease with ulcer, left lower extremity. POSTOPERATIVE DIAGNOSIS: Peripheral vascular disease with ulcer, left lower extremity. SURGEON: Miller Rossi DO. SENIOR ACCOUNTING CLERK: None. PROCEDURES: 1. Ultrasound-guided access, right common femoral artery. 2. Aortogram. 3. Left lower extremity angiogram catheter position third order. 4. Angioplasty and stent of left superficial femoral artery and popliteal artery with Bard Ultraverse 5 x 150, [place] 6 x 200, angioplasty balloons. SFA stents with LifeStent Solo 6 x 200, LifeStent 6 x 170 and LifeStent 5 x 120. 5. Limited angiogram, right common femoral artery. 6. Mynx closure, right common femoral artery. ESTIMATED BLOOD LOSS: Minimal. SPECIMEN: None. COMPLICATIONS: None. CONDITION: Stable. DISPOSITION: Home. INDICATIONS FOR THE PROCEDURE AND CONSENT: The patient is an 86-year-old female who presented with wounds of her left lower extremity. She is identified to have diminished ankle-brachial indices and concern for SFA stenoses and near occlusion. Recommendation for left lower extremity angiogram and possible intervention was made. Risks and benefits were discussed, including infection, bleeding, damage to vessels, need for additional procedures including bypass, major amputation and limb loss despite intervention. The patient wished to [address] [address] OPERATIVE REPORT Name: TARSHA VILLA Room: [facility]#: [id number] Admission: 07/25/17 Attend Phys: Sharla Alonso Discharge: Date of : 31 Report #: [id number] proceed, was consented and scheduled. PROCEDURE IN DETAIL: After timeout was performed, the patient was placed in supine position with sterile prep and drape of the anterior and bilateral groins and bilateral thighs. Ultrasound was utilized to identify the common femoral artery in this obese patient. The profunda artery was not well visualized. A 6-Liberian sheath was advanced over a wire in a standard fashion. Glidewire Advantage and UF catheter were advanced into the infrarenal aorta and aortogram was then performed, which demonstrated the aorta, bilateral common iliacs, internal and external iliac arteries to be widely patent, without flow limitation or stenosis. Glidewire Advantage and UF catheter were advanced in the left external iliac artery and left lower extremity angiogram performed. This demonstrated the common femoral artery to be relatively free of disease, with a robust profunda. The superficial femoral artery demonstrated near occlusion in multiple areas. There were sequential stenoses approximately every centimeter or 2 throughout the entire left SFA. The popliteal level of the artery became quite small, measuring 3-4 mm. The anterior tibial artery was noted to be patent and about mid calf. The peroneal artery demonstrated to be the inline flow to the foot and the posterior tibial artery origin was visualized, but it was occluded after a centimeter. I then systemically heparinized the patient with 6000 units of heparin with intention to treat. Glidewire Advantage was left in place and the UF catheter removed. The 6-Liberian sheath was removed and up and over Josiah sheath was advanced over a wire into the external iliac artery. Glidewire Advantage was then advanced beyond the SFA stenoses. Seeker catheter was used to assist with this navigation. I then reconfirmed the outflow from the popliteal location. I then performed pre-dilatation and angioplasty of the popliteal artery all the way to the origin of the SFA artery with the above angioplasty balloons and placed the above-mentioned stents down to the level of the popliteal artery. Repeat imaging demonstrated excellent radiographic result, without flow limitation or stenosis or dissection. There was a small amount of stenosis beyond the stent in the popliteal vessel and this was re-angioplastied with the Avid vascular 4 x 120 angioplasty balloon. Repeat imaging demonstrated excellent radiographic result, without flow limitation or stenosis. Being satisfied of the revascularization, I retracted the sheath into the right external iliac artery, performed a limited angiogram of the right common femoral artery. This demonstrated the access site to be actually within the proximal SFA on the right. It appeared to be a fairly healthy vessel without calcification. In this obese patient, I felt pressure hemostasis would likely fail and I instead opted for the Mynx closure device, which was deployed in the standard fashion. Pressure was held for additional 2 minutes for hemostasis. [address] [address] OPERATIVE REPORT Name: TARSHA VILLA Room: [facility] JEN Powell#: [id number] Admission: 07/25/17 Attend Phys: Sharla Alonso Discharge: Date of : 31 Report #: [id number] The patient tolerated the procedure well. Lap, needle and instrument counts were correct. <ELECTRONICALLY SIGNED> By: Miller Rossi DO 08/08/17 1528 1027 [id number] Rossi DO /nt
== END | disposition home or self-care (01) ==
LOC: M.INT 12:01 → M.TBA 17:22 → M.INT 17:22
PROVIDERS: Surgery
DX: I70.212 Atherosclerosis of native arteries of extremities with intermittent claudication, left leg (principal); E11.69 Type 2 diabetes mellitus with other specified complication; M19.90 Unspecified osteoarthritis, unspecified site; E66.09 Other obesity due to excess calories; M81.0 Age-related osteoporosis without current pathological fracture; E78.5 Hyperlipidemia, unspecified; Z98.890 Other specified postprocedural states; Z86.73 Personal history of transient ischemic attack (TIA), and cerebral infarction without residual deficits; Z79.899 Other long term (current) drug therapy; Z87.440 Personal history of urinary (tract) infections; Z88.2 Allergy status to sulfonamides; Z88.8 Allergy status to other drugs, medicaments and biological substances; Z79.82 Long term (current) use of aspirin; Z90.710 Acquired absence of both cervix and uterus

== ENCOUNTER 2017-08-01 02:47 | Inpatient (IN) | payer MEDICARE, MEDICAID ==
[~2017-08-01] VITALS: Ht 167.6 cm; Wt 68.0 kg
[~2017-08-01 02:47] MED LIST changes: -ARTIFICIAL TEAR15 M1 OPHTHALMIC; -BACTROBAN CREAM30 G1 TOP; -CARVEDILOL3.125 MG PO; -CATAPRES-TTS 11 EACH TRANSDERM; -CEFUROXIME500 MG PO; -CYANOCOBAL1000 MCG/1 SUBQ; -GLUCAGON EMERGEN1 MG IM; -HYDROCODON-ACE1 EAC7 PO; -LEVAQUIN 250 M250 MG PO; -LISINOPRIL5 MG PO; -MACROBID 100 M100 M2 PO; -MELATONIN5 M1 PO; -MYLANTA PO; -NORVASC5 MG PO; -NYAMYC15 GM; -PHENERGAN 25 MG25 M1 PO; -PLAVIX 75 MG TA75 M1 PO; -PROBIOTIC1 EAC1 PO; -REMERON15 MG PO; -TYLENOL325 MG PO; -VANCOMYCIN500 MG/VIA IV; -VENELEX OINTMEN60 GM INTRADERM; -ZYVOX600 MG PO
--- NOTE | 2017-08-01 14:58 | NUR ---
PATIENT DIRECTLY ADMITTED FROM [facility] FOR NON HEALING ULCER AT LEFT GREAT TOE AMPUTATION SITE. PATIENT UNSURE OF PRECEDING EVENTS SHE HAS DEMENTIA. ADMISSION HISTORY OBTAINED FROM PREV RECORDS. ASSESSMENT CHARTED. POSITIONED ON RIGHT SIDE. INCONT OF URINE. UNKNOWN LAST BM. BARRIER CREAM APPLIED TO LEFT BUTTOCK AND COCCYX WOUNDS. ALERT AND ORIENTED X 2-3. ORIENTED TO ROOM AND ENVIROMENT. BED ALARM SET. CALL LIGHT WITHIN REACH. WILL CONTINUE TO MONITOR.
[2017-08-01 15:01] VITALS: BP 116/48
[2017-08-01] MEDS ORDERED: VENELEX OINTMEN60 GM TOP (15:09)
--- NOTE | 2017-08-01 16:21 | NUR ---
PATIENT REMAINS AT BASELINE ORIENTATION. DENIES PAIN. LEFT FOOT WRAPPED IN WOUND CENTER PRIOR TO ADMISSION- DRESSING C/D/I. BARRIER CREAM TO MICHELE AREA- EXCORATION IN GROINS. PRESSURE ULCERS LEFT BUTTOCK AND COCCYX. REPOSTIONED EVERY 2 HOURS. INCONT URINE. MECHANICAL SOFT DINNER ORDERED. NPO AFTER MIDNIGHT FOR SURGERY TOMORROW. ATTEMPTING TO GAIN IV ACCESS CURRENTLY. SCD'S IN PLACE. BED ALARM SET. WILL CONTINUE TO MONITOR.
[2017-08-01 16:48] LABS: ABSOLUTE BASOPHILS 0.2 thou/uL (0.0-0.2); ABSOLUTE EOSINOPHILS 0.8 thou/uL (0.0-0.7); ABSOLUTE LYMPHOCYTES 3.9 thou/uL (0.8-5.3); ABSOLUTE NEUTROPHILS 13.2 thou/uL (1.6-8.1); BASOPHILS 0.9 %; EOSINOPHILS 3.9 %; HEMATOCRIT 34.9 % (37.0-47.0); LYMPHOCYTES 19.3 %; MCH 27.9 pg (26.0-34.0); MCHC 31.7 g/dL (28.0-37.0); MCV 88.2 fL (80.0-100.0); MPV 9.1 fl. (7.2-11.1); NUCLEATED RBCS 0 /100WBC; PLATELET COUNT* 251 thou/uL (150-400); POLYS 65.9 %; RBC 3.96 mil/uL (4.20-5.00); RDW-CV 14.5 % (10.5-14.5)
[2017-08-01 16:57] LABS: CALCIUM 9.4 mg/dL (8.5-10.1); CREATININE 1.2 mg/dL (0.6-1.3); POTASSIUM 4.6 mmol/L (3.5-5.1)
[2017-08-01 17:02] LABS: ALBUMIN 2.5 g/dL (3.4-5.0); TOTAL BILIRUBIN 0.1 mg/dL (<0.1-1.0); TOTAL PROTEIN 6.9 g/dL (6.4-8.2)
[2017-08-01 19:09] LABS: PLATELET ESTIMATE ADEQUATE
[2017-08-01 19:21] LABS: ANISOCYTOSIS Occasional; POIKILOCYTOSIS Occasional
[2017-08-01 20:07] LABS: INR 1.1; PROTIME 10.4 Seconds (9.20-11.50)
[2017-08-02] VITALS: BP 144/57
[2017-08-02 03:21] LABS: ABSOLUTE BASOPHILS 0.2 thou/uL (0.0-0.2); ABSOLUTE EOSINOPHILS 0.6 thou/uL (0.0-0.7); ABSOLUTE LYMPHOCYTES 2.6 thou/uL (0.8-5.3); ABSOLUTE MONOCYTES 1.5 thou/uL (0.0-1.2); BASOPHILS 1.2 %; EOSINOPHILS 4.7 %; HEMATOCRIT 31.4 % (37.0-47.0); HEMOGLOBIN 10.1 gm/dL (12.0-15.0); LYMPHOCYTES 20.3 %; MCH 27.9 pg (26.0-34.0); MCV 87.1 fL (80.0-100.0); MPV 8.9 fl. (7.2-11.1); NUCLEATED RBCS 0 /100WBC; PLATELET COUNT* 244 thou/uL (150-400); POLYS 61.8 %; RBC 3.61 mil/uL (4.20-5.00); RDW-CV 14.4 % (10.5-14.5); WBC 12.9 thou/uL (4.0-11.0)
[2017-08-02 03:29] LABS: CALCIUM 8.9 mg/dL (8.5-10.1); POTASSIUM 4.1 mmol/L (3.5-5.1)
--- NOTE | 2017-08-02 05:45 | NUR ---
PATIENT SLEPT MOST OF THE NIGHT. IV FLUIDS AND ANTIBIOTICS CONTINUE TO INFUSE ORDERED. PATIENT HAS BEEN NPO SINCE MIDNIGHT FOR SURGERY LATER THIS AFTERNOON. PATIENT HAS HAD NO COMPLAINTS OF PAIN. WILL CONTINUE TO MONITOR.
[2017-08-02 07:30] VITALS: BP 147/56
[2017-08-02 10:19] VITALS: BP 147/56
[2017-08-02 12:25] VITALS: BP 159/77
--- NOTE | 2017-08-02 12:58 | CON ---
[address] [address] CONSULTATION Name: TARSHA VILLA Room: [address] IN M.R.#: [id number] Admission: 08/01/17 Attend Phys: Alec Balbuena MD Discharge: Date of : 31 Report #: [id number] THIS REPORT FOR: //name// CC: Alec Lacey DATE OF SERVICE: 08/01/2017 ATTENDING PHYSICIAN: Alec Balbuena MD REASON FOR EVALUATION: Left distal lower extremity deep seated infection, suspected osteomyelitis, previous left great toe amputation back in early May of this year, isolation of Staphylococcus aureus. HISTORY OF PRESENT ILLNESS: Chart reviewed, patient examined. An 86-year-old with history of dementia, has diabetes mellitus type 2 with sequelae including peripheral neuropathy, has severe vasculopathy as well, has had issues with lower extremity ulcers, osteomyelitis and has undergone recent vascular surgery evaluation and subsequent intervention with revascularization utilizing percutaneous approach. She is unable to give significant details of her history; however, she has got chronic ulceration, likely infected bone at the base of the head of metatarsal. Denies significant pulmonary or gastrointestinal complaints. ALLERGIES: OPIOIDS, SULFA, CODEINE, ZINC. CURRENT MEDICATIONS: Insulin, atorvastatin, pramipexole, enoxaparin, , meclizine, lisinopril, aspirin, pantoprazole, p.r.n. analgesics, , given a dose of vancomycin. PAST MEDICAL HISTORY: Diabetes mellitus type 2 with its sequelae, hypertension, osteoarthritis, chronic venous stasis insufficiency, peripheral vascular disease, osteoporosis, vertigo, urinary incontinence, psoriasis, depression and some dementia, previous stroke, hyperlipidemia. SOCIAL HISTORY: Nonsmoker, no ethanol. FAMILY HISTORY: Noncontributory. REVIEW OF SYSTEMS: As above. PHYSICAL EXAMINATION: GENERAL: She is chronically ill appearing, undernourished. She is pleasant, clearly [place] [address] CONSULTATION Name: VILLATARSHA Santos Room: [address]#: [id number] Admission: 08/01/17 Attend Phys: Alec Balbuena MD Discharge: Date of : 31 Report #: [id number] VITAL SIGNS: Temperature 97.8, pulse 77, respirations 16, blood pressure 116/48. SKIN: Warm, dry, no rashes. HEENT: Unremarkable. NECK: Supple. LUNGS: Few crackles at the bases, otherwise clear. HEART: Regular. I do appreciate murmur. ABDOMEN: Soft, nontender, nondistended with a dressing in place over the distal aspect of the left lower extremity. GENITOURINARY: Deferred. RECTAL: Deferred. LABORATORY DATA: suspected. ASSESSMENT AND PLAN: Chronic osteomyelitis involving the distal aspect of the first metatarsal. We will continue empiric therapy at this point, await findings at surgery, tentatively plan to continue parenteral therapy post discharge, wound care, and try to optimize her nutritional status, and seemingly has improved perfusion. <ELECTRONICALLY SIGNED> By: Jim Chen MD 08/02/17 1258 1550 [id number] Chen MD /nt
--- NOTE | 2017-08-02 13:03 | NUR ---
Nutrition: Pt assessed for pressure ulcer on Lt foot and Lt buttock. H/o DM, dementia, DJD, PVD. RX: insulin, lisinopril. Wt: 150#. BG 127-147, alb 2.5, prealb 15.5. NPO for surgery today. Was on Ground diet before. Pt would benefit from MVI use and added protein. RD will order Arginaid protein packets t.i.d. for wound healing. Recommend MVI. Mild nutrition risk at this time.
--- NOTE | 2017-08-02 14:42 | NUR ---
CM SPOKE TO THE PATIENT TO DISCUSS HOME SITUATION, DISCHARGE PLANNING, AND TO INFORM OF THE ROLE OF CM. PATIENT OUT OF ROOM HAVING A PROCEDURE DONE. 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 THE STAFF AT THE FACILITY ASSIST WITH BATHING AND DRESSING, AND PATIENT IS ABLE TO FEED HERSELF. PATIENTS DTR INFORMS THAT THE PLAN IS FOR THE PATIENT TO RETURN TO [facility] AT D/C. CM WILL REMAIN AVAILABLE TO ASSIST AND FOLLOW NEEDED.
[2017-08-02 15:29] VITALS: BP 157/45
--- NOTE | 2017-08-02 17:18 | NUR ---
ALERT AND ORIENTED TO SELF. IV IS PATENT AND INFUSING. DENIES PAIN AND NAUSEA. HAD SURGERY ON LEFT FOOT THIS EVENING. FOOT IS NOW ELEVATED IN BED. DRESSING HAS A SMALL AMOUNT DRAINAGE. S0SGPMR HAVE BEEN MAINTAINED WHILE ON UNIT. PATIENT HAS BEEN INCONTINENT THROUGHOUT SHIFT. VSS ON ROOM AIR. HOURLY ROUNDS HAVE BEEN MAINTAINED THROUGHOUT SHIFT, WHILE ON UNIT. CALL LIGHT IS WITHIN REACH. NURSING WILL CONTINUE TO MONITOR.
[2017-08-02 23:51] VITALS: BP 149/52
[2017-08-03 04:45] LABS: ABSOLUTE BASOPHILS 0.1 thou/uL (0.0-0.2); ABSOLUTE EOSINOPHILS 0.5 thou/uL (0.0-0.7); ABSOLUTE LYMPHOCYTES 2.1 thou/uL (0.8-5.3); ABSOLUTE MONOCYTES 1.5 thou/uL (0.0-1.2); ABSOLUTE NEUTROPHILS 10.4 thou/uL (1.6-8.1); EOSINOPHILS 3.6 %; HEMATOCRIT 32.5 % (37.0-47.0); HEMOGLOBIN 10.2 gm/dL (12.0-15.0); LYMPHOCYTES 14.4 %; MCH 27.7 pg (26.0-34.0); MCHC 31.3 g/dL (28.0-37.0); MCV 88.5 fL (80.0-100.0); MONOCYTES 10.5 %; MPV 9.1 fl. (7.2-11.1); NUCLEATED RBCS 0 /100WBC; PLATELET COUNT* 251 thou/uL (150-400); POLYS 70.5 %; RBC 3.67 mil/uL (4.20-5.00); RDW-CV 14.5 % (10.5-14.5); WBC 14.7 thou/uL (4.0-11.0)
--- NOTE | 2017-08-03 04:58 | NUR ---
PATIENT SLEPT MOST OF THE NIGHT. IV IS NOW SALINE LOCKED. DRESSING TO LEFT FOOT WAS CHANGED AFTER DRESSING BECAME LOOSE AND CAME COMPLETLEY OFF. SIN HAS HAD NO COMPLAINTS OF PAIN. WILL CONTINUE TO MONITOR.
[2017-08-03 05:00] LABS: ALBUMIN 2.2 g/dL (3.4-5.0); CALCIUM 8.8 mg/dL (8.5-10.1); POTASSIUM 4.2 mmol/L (3.5-5.1); TOTAL BILIRUBIN 0.3 mg/dL (<0.1-1.0); TOTAL PROTEIN 6.3 g/dL (6.4-8.2)
[2017-08-03 08:00] VITALS: BP 182/73
--- NOTE | 2017-08-03 10:42 | NUR ---
WOUND CARE NOTE: ASSESSMENT FOR PRESSURE ULCER TO LEFT BUTTOCK AND COCCYX. PATIENT PRESENTS WITH INCONTINENCE ASSOCIATED DERMATITIS. 2 SMALL OPENINGS NOTED TO HER RIGHT BUTTOCK. SURROUNDING DISSUES DENUDED. PATIENT WAS INCONTINENT OF URINE DURING ASSESSMENT. ASSISTED BASTING CLEANER WITH CLEANSING AND PLACING NEW CHUX. APPLIED BARRIER OINTMENT. PATIENT WAS TURNED ON LEFT SIDE WITH WEDGES. HEELMEDIX BOOTS WERE ORDERED. RECOMMEND FREQUENT CHECKS FOR INCONTINENCE BARRIER OINTMENT BID AND PRN INCONTINENCE HEELMEDIX BOOTS
[2017-08-03 15:43] VITALS: BP 175/62
--- NOTE | 2017-08-03 16:10 | NUR ---
CAONSULTED TO PLACE PICC FOR CONSUMER ATTORNEY ATB THERAPY. ORDER AND CHART NOTED. RIGHT UPPER ARM BASILIC IDENTIFIED AND NOTED TO BE ADELAIDE OLIVO. A SINGLE LUMAN POWER PICC PLACED PER HOSPITAL POLICY. LINE TRIMMED TO 44CM AND ADVANCED WITH OUT DIFFICULTY TO 0CM EXTERNAL. LINE CONFIRMED WITH SHERLOCK 3CG. LINE SECURED AND RELEASED FOR IMMEDIATE USE. PRIMARY NURSING AWARE.
--- NOTE | 2017-08-03 16:40 | NUR ---
FAXED SID/JEAN SANCHEZ UPDATED CLINICAL INFORMATION. INFORMED HER PT.WILL MOST LIKELY NEED TO RETURN ON IV ANTIBIOTICS. CULTURES FROM SURGERY YESTERDAY ARE PENDING.
--- NOTE | 2017-08-03 17:18 | NUR ---
PATIENT HAS BEEN ALERT PART OF THE DAY, PLEASANT WHEN AWAKE. NO COMPLAINTS OF ANY KIND TODAY. VITAL SIGNS STABLE ON ROOM AIR. PICC LINE PLACED TODAY AND HAS BEEN OKAYED TO USE. PROVIDER REWRAPPED SURGICAL DRESSING TODAY AT BEDSIDE, CALL LIGHT IS IN REACH, BED ALARM ON, FREQUENT CHECKS AND TURNS. WILL CONTINUE TO MONITOR.
[2017-08-03 20:00] VITALS: BP 152/70
--- NOTE | 2017-08-04 04:53 | NUR ---
Patient alert to self. Has been checked and turned every 2 hours. Slept well through the night. PICC infused abts and able to draw blood. No complaints of pain or discomfort noted. Hourly rounding completed as documented.
[2017-08-04 08:30] VITALS: BP 161/62
--- NOTE | 2017-08-04 15:53 | NUR ---
I ASSUMED CARE OF THE PATIENT AT 0700. SHE IS ALERT AND ORIENTED X2 AND IS FROM [facility]. BED IS IN THE LOW LOCKED POSITION AND CALL LIGHT IS IN REACH. HOURLY ROUNDING WAS COMPLETED AND PATIENT NEEDS ARE MET. PAIN IS DENIED. PATIENT IS INCONTINENT OF BOWEL AND BLADDER AND HAD 2 MEDIUM STOOLS TODAY. PICC LINE WAS PLACED YESTERDAY AND IS WORKING WELL. SHE IS PLEASANT. SHE THEN HAD A LARGE FORMED BM AND WAS IMPACTED. WILL CONTINUE TO MONITOR.
--- NOTE | 2017-08-04 17:14 | NUR ---
ASSUMED CARE OF PATIENT AT THIS TIME. REPORT RECEIVED FROM Sangeetha HUANG RN. AGREE WITH PREVIOUS ASSESSMENT. DENIES ANY NEEDS. CALL LIGHT WITHIN REACH. WILL CONTINUE WITH PLAN OF CARE.
--- NOTE | 2017-08-04 19:26 | NUR ---
PATIENT HAS BEEN PLEASANT AND A/O X 2 SINCE ASSUMING CARE OF PATIENT. ASSISTED WITH DINNER, APPETITE FAIR TO POOR. BLOOD SUGARS MONITORED. TURNED EVERY 2 HOURS AND MICHELE-CARE PROVIDED WITH EACH INCONTINENT EPISODE. HEELMEDIX BOOTS IN PLACE TO BILATERAL HEELS. BED ALARM ON. HOURLY ROUNDING COMPLETED. CALL LIGHT WITHIN REACH. WILL CONTINUE WITH PLAN OF CARE.
[2017-08-04 23:55] VITALS: BP 137/53
[2017-08-05] VITALS: BP 137/53
--- NOTE | 2017-08-05 07:40 | NUR ---
PT SLEPT ON AND OFF OVERNIGHT. DENIES PAIN OR PROBLEMS. DRSG CDI TO L FOOT, HEEL MEDIX BOOTS IN PLACE. PT TURNED AND REPOSITIONED Q2 HOURS FOR COMFORT AND SKIN INTEGRITY. DANICA PICC SL, ABX GIVEN ORDERED. AM LABS DRAWN. HS ACCUCHECK 172, INSULIN GIVEN ORDERED. INCONTINENT URINE OVERNIGHT, MICHELE CARE GIVEN. REMAINS ON CONTACT ISOLATION. BED ALARM ON FOR SAFETY, CALL LITE IN EASY REACH.
[2017-08-05 07:48] LABS: HEMATOCRIT 30.4 % (37.0-47.0); HEMOGLOBIN 9.6 gm/dL (12.0-15.0); MCH 27.5 pg (26.0-34.0); MCHC 31.4 g/dL (28.0-37.0); MCV 87.4 fL (80.0-100.0); MPV 9.3 fl. (7.2-11.1); RBC 3.48 mil/uL (4.20-5.00); RDW-CV 14.7 % (10.5-14.5); WBC 11.9 thou/uL (4.0-11.0)
[2017-08-05 08:05] LABS: ALBUMIN 2.1 g/dL (3.4-5.0); CALCIUM 8.2 mg/dL (8.5-10.1); CREATININE 1.3 mg/dL (0.6-1.3); MAGNESIUM 1.9 mg/dL (1.8-2.4); POTASSIUM 3.8 mmol/L (3.5-5.1); TOTAL BILIRUBIN 0.2 mg/dL (<0.1-1.0); TOTAL PROTEIN 5.4 g/dL (6.4-8.2)
[2017-08-05 08:50] VITALS: BP 168/51
[2017-08-05 14:23] VITALS: BP 168/51
[2017-08-05 16:18] VITALS: BP 112/36
--- NOTE | 2017-08-05 17:49 | NUR ---
PATIENT HAS BEEN A/O TO PERSON AND PLACE THIS SHIFT. HAS DENIED PAIN OR DISCOMFORT. IV ANTIBIOTICS INFUSED ORDERED TO RIGHT UPPER ARM PICC LINE. PICTURES OBTAINED OF LEFT FOOT, SACRUM, AND BILATERAL BUTTOCKS AND PLACED IN CHART. DRESSING TO LEFT FOOT CHANGED BY DR REEVES. HEELMEDIX BOOTS IN PLACE TO BILATERAL FEET. INCONTINENT OF URINE THIS SHIFT, MICHELE-CARE GIVEN. REPOSITIONED EVERY 2 HOURS AND HEELS ELEVATED. BLOOD SUGARS CHARTED. TO HAVE REPEAT LABS IN AM. CM CONSULTED FOR CONTINUAL DC PLANNING. FALL PRECAUTIONS IN PLACE. CALL LIGHT WITHIN REACH. HOURLY ROUNDING COMPLETED. CALL LIGHT WITHIN REACH. WILL CONTINUE WITH PLAN OF CARE.
--- NOTE | 2017-08-05 17:58 | NUR ---
BILATERAL GROINS AND UNDER RIGHT BREAST HEALED, PICTURE NOT TAKEN DUE TO NO OPEN OR PINK AREAS.
[2017-08-05 20:15] VITALS: BP 165/55
[2017-08-06 04:45] LABS: HEMATOCRIT 27.9 % (37.0-47.0); HEMOGLOBIN 9.1 gm/dL (12.0-15.0); MCHC 32.5 g/dL (28.0-37.0); MPV 8.8 fl. (7.2-11.1); RBC 3.24 mil/uL (4.20-5.00); RDW-CV 14.4 % (10.5-14.5); WBC 12.1 thou/uL (4.0-11.0)
[2017-08-06 04:57] LABS: CALCIUM 8.3 mg/dL (8.5-10.1); CREATININE 1.4 mg/dL (0.6-1.3); MAGNESIUM 1.9 mg/dL (1.8-2.4); POTASSIUM 3.6 mmol/L (3.5-5.1)
--- NOTE | 2017-08-06 06:43 | NUR ---
PT SLEPT WELL OVERNIGHT. DANICA PICC SL, ABX GIVEN ORDERED. HS ACCUCHECK 199, INSULIN GIVEN. AM LABS DRAWN. TURNED AND REPOSITIONED Q2 HOURS AND PRN FOR SKIN CARE AND COMFORT.INCONTINENT URINE, MICHELE CARE GIVEN AND BARRIER CREAM APPLIED TO BOTTOM. HEEL MEDIX BOOTS ON OVERNIGHT, PT KICKS THEM OFF OCCASIONALLY, REPLACED BACK TO BLE WHEN NEEDED. LFOOT DRESSING CHANGED IT BECAME LOOSE AND INEFFECTIVE. 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 TAKES PILLS WHOLE WITH SIP OF WATER WITHOUT DIFFICULTY. BED ALARM ON FOR SAFETY. AO TO SELF AND SITUATION, PLEASANT AND ABLE TO MAKE NEEDS KNOWN.
[2017-08-06 09:00] VITALS: BP 186/62
[2017-08-06 11:47] VITALS: BP 168/51
[2017-08-06 12:49] VITALS: BP 168/51
[2017-08-06 12:53] VITALS: BP 168/51
[2017-08-06] MEDS ORDERED: VANCOMYCIN500 MG/VIA IV (13:08)
--- NOTE | 2017-08-06 13:20 | NUR ---
MAURISIO called and spoke with Elif at [facility] and discussed pt to dc home to [facility] today with IV abx therapy and wound care. Elif accepting of pt return home and scheduled transportation for 14:00. MAURISIO called and spoke with pt NIKOLAS Buck and discussed dc plans; Cielo in agreement with plan. MAURISIO provided nurse info for calling report. MAURISIO faxed final dc orders, information and med list to [facility].
--- NOTE | 2017-08-06 14:21 | NUR ---
PATIENT HAS BEEN ALERT TODAY AND VERY PLEASANT. VITAL SIGNS STABLE ON ROOM AIR. NO COMPLAINTS OF ANY KIND TODAY. INCONTINENT OF URINE SEVERAL TIMES TODAY. FREQUENT TURNS, CALL LIGHT IS IN REACH. PATIENT IS BEING DISCHARGED BACK TO FACILITY, REPORT CALLED AND DISCHARGE PAPERS FINISHED. PHOTOS NOT TAKEN SINCE THEY WERE TAKEN YESTERDAY AND DRESSING WAS CHANGED THEN. PATIENT LEFT VIA WHEEL CHAIR WITH TRANSPORTER FROM [facility].
[2017-08-06 14:24] VITALS: BP 168/51
--- NOTE | 2017-08-06 16:14 | S ---
[place] [address] SURGICAL PATH RPT PROCEDURE Name: ALLENTARSHA C Room: [address] IN M.R.#: [id number] Admission: 08/01/17 Date of : 31 Discharge: 08/06/17 Report #: [id number] Path Case #: [id number] PATHOLOGY REPORT COLLECTION DATE: 08/02/2017 RECEIVED DATE: 08/02/2017 SUBMITTING PHYS: Dr. Jaswant Aguirre OTHER PHYS: Dr. Kiet Balbuena SPECIMEN(S) RECEIVED: A.L foot 1st and 2nd metatarsal, 2nd toe and sesamoids * * * * * * * * * * * * FINAL DIAGNOSIS: Left foot first and second metatarsal, second toe and sesamoids: - Benign toe with focal nonspecific ulceration and acute inflammation of soft tissues, and underlying phalangeal bone with subtle osteomyelitis, proximal disarticulation margin free of osteomyelitis. - Separate smaller benign osteocartilaginous segment without osteomyelitis. - Separate larger benign osteocartilaginous segment with osteomyelitis at jagged end and opposite, flat (yellow-inked) margin free of osteomyelitis. - Separate segment of benign fibrous connective tissue with mild acute inflammation and with encased two benign osteocartilaginous segments with reactive changes, but no definite osteomyelitis. (DOT:kori; 08/06/2017) PATHOLOGIST: Chester Garsia M.D. REPORT ELECTRONICALLY SIGNED BY: Chester Garsia M.D. DATE/TIME: 08/06/2017 16:13 * * * * * * * * * * * * GROSS PATHOLOGY: The specimen is received in formalin, labeled "Tarsha Salgado, first metatarsal, second metatarsal, second toe and sesamoids left foot". Received is a toe amputation specimen measuring 4.9 x 2.0 x 1.5 cm in greatest dimensions. The bone margin is smooth, concave and pale boucher, consistent with disarticulation. A nail is present in the nail bed that is pale yellow-boucher and grossly unremarkable in appearance. The dorsal epidermal surface displays a well-circumscribed, granular and light boucher lesion measuring 0.3 x 0.3 cm that extends to within 3.0 cm of the soft tissue margin. The bone and soft tissue margins are inked black. A full-thickness cross section is submitted proximal to distal in cassettes A1 through A3 ([place] [address] SURGICAL PATH RPT PROCEDURE Name: TARSHA SALGADO Danielle Room: [address] IN [facility]#: [id number] Admission: 08/01/17 Date of : 31 Discharge: 08/06/17 Report #: [id number] Path Case #: [id number] epidermal lesion in A3), following decalcification. Also received in the specimen container is a segment of bone with scant attached pale yellow-boucher soft tissue measuring 4.2 x 1.3 x 1.2 cm in greatest dimensions. One bone margin is smooth and convex, consistent with disarticulation; this margin is inked black. The opposite bone margin is flat in appearance, consistent with transection; this margin is inked red. A full-thickness cross section is submitted from convex to flat margins in cassettes A4 and A5, following decalcification. Also received within the specimen container is a larger segment of bone with scant attached pale yellow-boucher soft tissue measuring 4.5 x 2.2 x 2.2 cm in greatest dimensions. One bone margin is smooth and convex to jagged; this margin is inked blue. The opposite margin is flat, consistent with transection; this margin is inked yellow. A full-thickness cross section is submitted from jagged to blunt margins in cassettes A6 through A8, following decalcification. Also received within the specimen container is an irregular segment of pale yellow-boucher fibrous tissue containing two disc-shaped segments of light boucher bone measuring 3.5 x 3.5 x 0.8 cm in greatest dimensions. The bone segments measure 0.9 cm and 1.0 cm in maximum dimension. A mechanical service representative section of each bone segment is submitted in cassettes A9 and A10, following decalcification. A gross photograph is taken. (DAC; 08/03/2017) CLINICAL HISTORY: Osteomyelitis INITIAL CPT CODE(S): A; 34280, 81258 Professional services performed [place] [facility] [place] [address] Technical services performed by [facility] at [address] [place] [address], [address], [place] [address]. [facility] [address] [place] [address] PHONE: [phone] DIRECTOR: Marcos Matias M.D. * * * END OF REPORT * * *
--- NOTE | 2017-08-08 13:25 | CON ---
[address] [address] CONSULTATION Name: TARSHA VILLA Room: [address] IN M.R.#: [id number] Admission: 08/01/17 Attend Phys: Alec Balbuena MD Discharge: 08/06/17 Date of : 31 Report #: [id number] THIS REPORT FOR: //name// CC: Alec Lacey DATE OF SERVICE: 08/01/2017 CHIEF COMPLAINT AND HISTORY OF PRESENT ILLNESS: Consultation for nonhealing postoperative ulceration to the left foot. The patient was admitted today from [facility] after both Dr. Miller Rossi and myself evaluated her. I performed a left great toe amputation with primary closure on 05/30/2017 for osteomyelitis. She subsequently had some wound dehiscence with the postoperative wound and soft tissue infection. She has been managed by Dr. Aldo Chen on parenteral vancomycin. Soft tissue and bone cultures from that surgery grew sensitive Staph aureus as well as mixed skin ednae. She recently had aortogram with left lower extremity angiogram with angioplasty and stenting, with SFA stent placement. She is currently on parenteral vancomycin with good tolerance and managed by Infectious Disease. 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 She is a poor historian. She denies vidhya foot pain, unless the area is directly palpated. I reviewed her past medical history, medicines and allergies in the EMR. There are no new labs for review. PHYSICAL EXAMINATION: Large open wound to the left great toe amputation site with exposed first metatarsal bone. The bone has a yellow, brown discoloration and appears necrotic. The surrounding soft tissue wound is mostly a yellow-brown fibronecrotic slough with some islands of red granulation. Low grade inflammation surrounding the wound periphery consistent with low-grade localized cellulitis, immediate digital capillary refill to the periwound margins. There is no underlying fluctuance or crepitation. She has dopplerable dorsalis pedis and posterior tibial pulses. There is no cyanosis or signs of acute vascular embarrassment. Negative Homans' or Naqvi sign to either leg. Mild tenderness with palpation to the wound. IMPRESSION: Osteomyelitis, left distal first metatarsal with soft tissue infection. PLAN: I discussed with Dr. Miller Rossi, we both agree that patient requires further surgical bone debridement. We will consider transmetatarsal amputation versus isolated first ray resection. We [place] [address] CONSULTATION Name: VILLATARSHA Santos Room: [address]#: [id number] Admission: 08/01/17 Attend Phys: Aelc Balbuena MD Discharge: 08/06/17 Date of : 31 Report #: [id number] cultures as well as bone pathology. We will hold the patient's enoxaparin tonight and obtain new foot radiographs. <ELECTRONICALLY SIGNED> By: Jaswant Aguirre DPM 08/08/17 1325 1601 1931Ddesiree Aguirre DPM /nt
--- NOTE | 2017-08-08 13:25 | CON ---
[address] [address] CONSULTATION Name: TARSHA VILLA Room: [address] IN .R.#: [id number] Admission: 08/01/17 Attend Phys: Alec Balbuena MD Discharge: 08/06/17 Date of : 31 Report #: [id number] THIS REPORT FOR: //name// CC: Alec Fernandez Gustavo Primary physician Kiet Lacey DATE OF SERVICE: 08/03/2017 CHIEF COMPLAINT: Postoperative day #1 for a transmetatarsal amputation of the left first and second rays. Surgical cultures pending with no growth thus far. She had a PICC line placed today, she is on parenteral vancomycin. She has been afebrile with stable vitals. Surgical pathology is pending. She is nonambulatory, she has a pillow PRAFO boots on both extremities for ulcer prevention. LABORATORY DATA: WBC 14.7, RBC 3.67, hemoglobin 10.2, hematocrit 32.5, platelets 251. BUN 16, creatinine 1.0, glucose 147. PHYSICAL EXAMINATION: The incision is well approximated with no drainage, bleeding or cellulitis. There is no pallor or cyanosis. Barbara-incisional capillary refill roughly is 0.5 seconds. No signs of acute vascular embarrassment. No popliteal or calf tenderness bilaterally. IMPRESSION: Osteomyelitis, left first metatarsal, status post partial ray resections of the first and second metatarsals. PLAN: The incision was cleansed and she was redressed with Aquacel Ag, ABDs and Kerlix gauze. Continue offloading feet in pillow PRAFO boots. I will change her bandage daily while at [facility]. <ELECTRONICALLY SIGNED> By: Jaswant Aguirre DPM 08/08/17 1325 1644 1957Jaswant Aguirre DPM /nt
--- NOTE | 2017-08-08 13:25 | OP ---
[address] [address] OPERATIVE REPORT Name: TARSHA VILLA Room: [address]R.#: [id number] Admission: 08/01/17 Attend Phys: Alec Balbuena MD Discharge: 08/06/17 Date of : 31 Report #: [id number] THIS REPORT FOR: //name// CC: Alec Lacey DATE OF SERVICE: 08/02/2017 SURGEON: Jaswant Aguirre DPM. PREOPERATIVE DIAGNOSIS: Osteomyelitis, left distal first metatarsal with nonhealing ulceration. POSTOPERATIVE DIAGNOSIS: Osteomyelitis, left distal first metatarsal with nonhealing ulceration. PROCEDURE: 1. Transmetatarsal amputation of left first and second metatarsals. 2. Pedicled skin flap, left foot. 3. Incision and drainage, left foot. ANESTHESIA: MAC. INJECTABLES: 30 mL of a 1:1 mixture of 0.5% Marcaine plain and 1% lidocaine plain. ESTIMATED BLOOD LOSS: Less than 0.5 mL. HEMOSTASIS: Left ankle pneumatic tourniquet at 250 mmHg. SPECIMENS: Left distal first and second metatarsals, left second toe and tibial and fibular sesamoids. CULTURES: 1. Bone, left first metatarsal, aerobic and anaerobic. 2. Soft tissue, left foot, aerobic and anaerobic. SUTURES: 3-0 nylon. COMPLICATIONS: None. DESCRIPTION OF PROCEDURE: The patient was brought to the OR and placed on the table supine with induction of MAC anesthesia. A well-padded left ankle pneumatic tourniquet was placed. A local anesthetic [place] [address] OPERATIVE REPORT Name: TARSHA VILLA Room: [address]#: [id number] Admission: 08/01/17 Attend Phys: Alec aBlbuena MD Discharge: 08/06/17 Date of : 31 Report #: [id number] foot and the extremity was prepped and draped aseptically. The foot was exsanguinated with inflation of the tourniquet. A #10 blade was used to create an incision over the dorsal first metatarsal and I mobilized the first metatarsal and transected at the proximal aspect with a sagittal saw. I removed infected and devitalized tissue from the wound bed as well as the skin from the distal plantar medial skin flap. There was not enough tissue for closure; therefore, I resected the distal portion of the left second metatarsal and removed the second toe to facilitate plantar medial skin flap rotation dorsolaterally for primary suturing. Electrocautery was utilized for hemostasis. All devitalized tissue and tendons were removed as needed. The tibial and fibular sesamoids were also removed and sent for pathology. A office services representative portion of bone from the distal first metatarsal was sent for bone cultures, and soft tissue from the distal wound was sent for soft tissue cultures. The bone of the first metatarsal was yellow, soft and necrotic consistent with osteomyelitis. The second metatarsal and toe did not have these features. The skin of the plantar medial flap was mobilized and sutured dorsolaterally with 3-0 nylon in simple interrupted fashion. The tourniquet was deflated during suturing, which showed normal vascular return to the zohra-incisional margins. The entire wound was closed and the foot was cleansed and dried. It was then dressed with Betadine-soaked Adaptic, fluffs and Destinee gauze. The patient left the OR with no complications or noted pain. <ELECTRONICALLY SIGNED> By: Jaswant Aguirre DPM 08/08/17 1325 1415 [id number] Aguirre DPM /nt
--- NOTE | 2017-08-08 13:25 | CON ---
[address] [address] CONSULTATION Name: TARSHA VILLA Room: [address] IN M.R.#: [id number] Admission: 08/01/17 Attend Phys: Alec Balbuena MD Discharge: 08/06/17 Date of : 31 Report #: [id number] THIS REPORT FOR: //name// CC: Alec Lacey DATE OF SERVICE: 08/04/2017 Postoperative day #2 for resection of the left distal first and second metatarsals with primary closure, for osteomyelitis. She is resting comfortably, on parenteral vancomycin. Surgical tissue and bone cultures are pending, with no growth thus far. She is currently sleeping. LABORATORY DATA: There are no new labs for review. PHYSICAL EXAMINATION: Left foot incision is well coapted with no inflammation, erythema or cardinal signs of infection. There is no pallor, cyanosis or dehiscence. No drainage or bleeding from the incision. The foot is warm with no signs of acute vascular embarrassment. IMPRESSION: Status post transmetatarsal amputation of the left first and second metatarsals. PLAN: The incision was cleansed and redressed with Aquacel Ag, ABDs and Kerlix with a pillow PRAFO boot. I will follow during her hospitalization. <ELECTRONICALLY SIGNED> By: Jaswant Aguirre DPM 08/08/17 1325 1238 [id number] Aguirre, MAGEN /derian
--- NOTE | 2017-08-08 13:25 | CON ---
[address] [address] CONSULTATION Name: TARSHA VILLA Room: [address] IN ..#: [id number] Admission: 08/01/17 Attend Phys: Alec Balbuena MD Discharge: 08/06/17 Date of : 31 Report #: [id number] THIS REPORT FOR: //name// CC: Alec Lacey CHIEF COMPLAINT: Postoperative day #3 for transmetatarsal amputation of the left first and second metatarsals with primary closure as treatment for osteomyelitis. She is on parenteral vancomycin with good tolerance. Her nares naris did test positive for MRSA, so she is on contact isolation. She tolerates parenteral vancomycin via PICC. She has been afebrile with stable vitals. She denies pain to the left foot. Both soft tissue and bone cultures have no growth. Surgical pathology is pending. She might be discharged tomorrow back to [facility]. LABORATORY DATA: WBC 11.9, RBC 3.48, hemoglobin 9.6, hematocrit 30.4, platelets 266. BUN 16, creatinine 1.3, glucose 115. PHYSICAL EXAMINATION: Her incision is well coapted with no pallor, cyanosis, drainage or cardinal signs of infection. Her foot is warm with palpable dorsalis pedis and posterior tibial pulses. No tenderness with palpation to the zohra-incision. The adjacent third toe has immediate capillary refill with no signs of acute vascular embarrassment. IMPRESSION: Osteomyelitis, left distal first metatarsal, postoperative left foot. PLAN: The incision was cleansed and redressed with Aquacel Ag, ABDs and Kerary with a PRAFO to offload her heel. I will follow up with her at [facility] with Dr. Chen as an outpatient. <ELECTRONICALLY SIGNED> By: Jaswant Aguirre DPM 08/08/17 1325 1132 1953Ddesiree Aguirre DPM /nt
[2018-03-06] MEDS ORDERED: BENADRYL25 MG PO (11:01)
== END 2017-08-06 14:25 | DRG 616 ==
LOC: M.WC 02:47 → M.3W 13:29
PROVIDERS: Family Medicine; ADMIT Internal Medicine
DX: E11.69 Type 2 diabetes mellitus with other specified complication (principal); R65.11 Systemic inflammatory response syndrome (SIRS) of non-infectious origin with acute organ dysfunction; E44.0 Moderate protein-calorie malnutrition; M86.672 Other chronic osteomyelitis, left ankle and foot; E11.51 Type 2 diabetes mellitus with diabetic peripheral angiopathy without gangrene; N17.9 Acute kidney failure, unspecified; F03.90 Unspecified dementia, unspecified severity, without behavioral disturbance, psychotic disturbance, mood disturbance, and anxiety; M19.90 Unspecified osteoarthritis, unspecified site; M81.0 Age-related osteoporosis without current pathological fracture; I10 Essential (primary) hypertension; F32.9 Major depressive disorder, single episode, unspecified; E11.621 Type 2 diabetes mellitus with foot ulcer; L97.529 Non-pressure chronic ulcer of other part of left foot with unspecified severity; E78.5 Hyperlipidemia, unspecified; E11.42 Type 2 diabetes mellitus with diabetic polyneuropathy; Z79.4 Long term (current) use of insulin; Z79.82 Long term (current) use of aspirin; Z79.899 Other long term (current) drug therapy; Z88.2 Allergy status to sulfonamides; Z88.5 Allergy status to narcotic agent; Z88.8 Allergy status to other drugs, medicaments and biological substances

== ENCOUNTER → 2017-08-15 | Outpatient (CLI) | payer MEDICARE, MEDICAID ==
[~2017-08-15] MED LIST changes: +ARTIFICIAL TEAR15 M1 OPHTHALMIC; +BACTROBAN CREAM30 G1 TOP; +CARVEDILOL3.125 MG PO; +CATAPRES-TTS 11 EACH TRANSDERM; +CEFUROXIME500 MG PO; +CYANOCOBAL1000 MCG/1 SUBQ; +GLUCAGON EMERGEN1 MG IM; +HYDROCODON-ACE1 EAC7 PO; +LEVAQUIN 250 M250 MG PO; +LISINOPRIL5 MG PO; +MACROBID 100 M100 M2 PO; +MELATONIN5 M1 PO; +MYLANTA PO; +NORVASC5 MG PO; +NYAMYC15 GM; +PHENERGAN 25 MG25 M1 PO; +PLAVIX 75 MG TA75 M1 PO; +PROBIOTIC1 EAC1 PO; +REMERON15 MG PO; +TYLENOL325 MG PO; +VANCOMYCIN500 MG/VIA IV; +VENELEX OINTMEN60 GM INTRADERM; +ZYVOX600 MG PO
--- NOTE | 2017-08-16 11:14 | CON ---
[address] [address] CONSULTATION Name: ALLENTARSHA C [id number] Admission: 08/15/17 Attend Phys: Jaswant Aguirre DPM Discharge: Date of : 31 Report #: [id number] THIS REPORT FOR: //name// CC: Jaswant Lacey DATE OF SERVICE: 08/15/2017 INFECTIOUS DISEASE CONSULTATION: ATTENDING PHYSICIAN: Dr. Jaswant Fuentes. HISTORY OF PRESENT ILLNESS: The patient returns today in followup, having undergone a ray amputation involving the left foot medial aspect including the great toe and chronic osteomyelitis. She did undergo a second surgery to remove more of the metatarsal as well as the sesamoid. She has been on parenteral therapy for several weeks. Clinically, she has done fairly well, denies significant pain. She is not having systemic illness. She seems to be more responsive actually. Chronic osteomyelitis, at this point, would extend the antibiotics at least 1 additional week, check weekly labs including vancomycin level, was encouraged to offload the site, and to optimize her nutritional status. <ELECTRONICALLY SIGNED> By: Jim Chen MD 08/16/17 [phone] [id number] Chen MD /nt
== END ==
LOC: M.WC 04:31
DX: T87.89 Other complications of amputation stump (principal); E11.51 Type 2 diabetes mellitus with diabetic peripheral angiopathy without gangrene; I10 Essential (primary) hypertension; E78.5 Hyperlipidemia, unspecified; E66.9 Obesity, unspecified; M19.90 Unspecified osteoarthritis, unspecified site; M81.0 Age-related osteoporosis without current pathological fracture; F03.90 Unspecified dementia, unspecified severity, without behavioral disturbance, psychotic disturbance, mood disturbance, and anxiety; F32.9 Major depressive disorder, single episode, unspecified; Z87.891 Personal history of nicotine dependence; Z86.73 Personal history of transient ischemic attack (TIA), and cerebral infarction without residual deficits; Z90.710 Acquired absence of both cervix and uterus; Y83.5 Amputation of limb(s) as the cause of abnormal reaction of the patient, or of later complication, without mention of misadventure at the time of the procedure

== ENCOUNTER → 2017-08-22 | Outpatient (CLI) | payer MEDICARE, MEDICAID ==
--- NOTE | 2017-08-23 12:18 | CON ---
[address] [address] CONSULTATION Name: SHEILA VILLABRENDEN Santos Room: [facility]#: [id number] Admission: 08/22/17 Attend Phys: Jaswant Aguirre DPM Discharge: Date of : 31 Report #: [id number] THIS REPORT FOR: //name// CC: Jaswant Lacey DATE OF SERVICE: 08/22/2017 INFECTIOUS DISEASE CONSULTATION ATTENDING PHYSICIAN: Jaswant Aguirre DPM. HISTORY OF PRESENT ILLNESS: She returns in followup ongoing care for left great toe osteomyelitis, status post toe amputation and partial metatarsal osteoectomy. She actually has been doing fairly well. She denies any significant pain. She is not systemically ill. On inspection, does have an area of ulcer in the medial aspect of the second digit. Incision line appears to be fairly well approximated. There is only mild degree of inflammation noted. She has completed 3 weeks of parenteral therapy. ASSESSMENT AND PLAN: Chronic osteomyelitis involving the left great toe post amputation. We will continue the parenteral antibiotics for an additional 2-3 weeks. We will see her back in 2 weeks and reevaluate. <ELECTRONICALLY SIGNED> By: Jim Chen MD 08/23/17 1218 1441 0002Jotoni Chen MD /nt
== END ==
LOC: M.WC 02:54
DX: E11.621 Type 2 diabetes mellitus with foot ulcer (principal); L97.521 Non-pressure chronic ulcer of other part of left foot limited to breakdown of skin; I70.245 Atherosclerosis of native arteries of left leg with ulceration of other part of foot; L89.893 Pressure ulcer of other site, stage 3; I10 Essential (primary) hypertension; M19.90 Unspecified osteoarthritis, unspecified site; E66.9 Obesity, unspecified; E11.51 Type 2 diabetes mellitus with diabetic peripheral angiopathy without gangrene; F32.9 Major depressive disorder, single episode, unspecified; E78.5 Hyperlipidemia, unspecified; F03.90 Unspecified dementia, unspecified severity, without behavioral disturbance, psychotic disturbance, mood disturbance, and anxiety; Z86.73 Personal history of transient ischemic attack (TIA), and cerebral infarction without residual deficits; Z87.891 Personal history of nicotine dependence; Z90.710 Acquired absence of both cervix and uterus

== ENCOUNTER → 2017-08-29 | Outpatient (CLI) | payer MEDICARE, MEDICAID | LOC: M.WC 01:48 | DX: E11.621 Type 2 diabetes mellitus with foot ulcer (principal); I70.245 Atherosclerosis of native arteries of left leg with ulceration of other part of foot; L97.521 Non-pressure chronic ulcer of other part of left foot limited to breakdown of skin; L89.893 Pressure ulcer of other site, stage 3; E11.40 Type 2 diabetes mellitus with diabetic neuropathy, unspecified; I10 Essential (primary) hypertension; E66.9 Obesity, unspecified; I73.9 Peripheral vascular disease, unspecified; E78.5 Hyperlipidemia, unspecified; M19.90 Unspecified osteoarthritis, unspecified site; M81.0 Age-related osteoporosis without current pathological fracture; F03.90 Unspecified dementia, unspecified severity, without behavioral disturbance, psychotic disturbance, mood disturbance, and anxiety; F32.9 Major depressive disorder, single episode, unspecified; Z87.891 Personal history of nicotine dependence; Z86.73 Personal history of transient ischemic attack (TIA), and cerebral infarction without residual deficits; Z90.710 Acquired absence of both cervix and uterus ==

== ENCOUNTER → 2017-09-05 | Outpatient (CLI) | payer MEDICARE, MEDICAID ==
--- NOTE | 2017-09-06 12:34 | CON ---
[address] [address] CONSULTATION Name: TARSHA VILLA Room: [facility] JajaDyanCrDyan#: [id number] Admission: 09/05/17 Attend Phys: Jaswant Aguirre DPM Discharge: Date of : 31 Report #: [id number] THIS REPORT FOR: //name// CC: Jaswant Lacey DATE OF SERVICE: 09/05/2017 INFECTIOUS DISEASE CONSULTATION FOLLOWUP ATTENDING PHYSICIAN: Dr. Jaswant Aguirre. HISTORY OF PRESENT ILLNESS: The patient returns in followup status post left great toe amputation due to chronic osteomyelitis. She had completed multiple weeks of therapy and at least 5 post her most recent surgery, second of 2 and has generally been doing well. Denies any systemic illness. She has not had issues with significant pain. She does have a degree of peripheral neuropathy. Per report, her appetite has been somewhat variable. There is no evidence of systemic illness. Inspection of the wound post-debridement is somewhat bland in appearance, although per Dr. Aguirre, it was bleeding. There is only mild degree of inflammation noted superficially. ASSESSMENT AND PLAN: Chronic osteomyelitis. At this point, given the 2 surgeries and extended period of antibiotics, I think it is reasonable to discontinue the vancomycin. We have got to remove the PICC line as well. She was encouraged to optimize her nutritional status. Wound care per Dr. Aguirre and I will see her as needed. <ELECTRONICALLY SIGNED> By: Jim Chen MD 09/06/17 6221 0841 1217Josevenkat Chen MD /nt
== END ==
LOC: M.WC 03:40
DX: E11.621 Type 2 diabetes mellitus with foot ulcer (principal); L97.421 Non-pressure chronic ulcer of left heel and midfoot limited to breakdown of skin; L89.893 Pressure ulcer of other site, stage 3; E11.40 Type 2 diabetes mellitus with diabetic neuropathy, unspecified; I70.245 Atherosclerosis of native arteries of left leg with ulceration of other part of foot; I10 Essential (primary) hypertension; M19.90 Unspecified osteoarthritis, unspecified site; E66.9 Obesity, unspecified; E11.51 Type 2 diabetes mellitus with diabetic peripheral angiopathy without gangrene; F32.9 Major depressive disorder, single episode, unspecified; F03.90 Unspecified dementia, unspecified severity, without behavioral disturbance, psychotic disturbance, mood disturbance, and anxiety; E78.5 Hyperlipidemia, unspecified; Z86.73 Personal history of transient ischemic attack (TIA), and cerebral infarction without residual deficits; Z87.891 Personal history of nicotine dependence

== ENCOUNTER → 2017-09-12 | Outpatient (CLI) | payer MEDICARE, MEDICAID | LOC: M.WC 04:04 | DX: E11.621 Type 2 diabetes mellitus with foot ulcer (principal); L97.521 Non-pressure chronic ulcer of other part of left foot limited to breakdown of skin; L89.893 Pressure ulcer of other site, stage 3; I10 Essential (primary) hypertension; M19.90 Unspecified osteoarthritis, unspecified site; E11.51 Type 2 diabetes mellitus with diabetic peripheral angiopathy without gangrene; F32.9 Major depressive disorder, single episode, unspecified; E78.5 Hyperlipidemia, unspecified; F03.90 Unspecified dementia, unspecified severity, without behavioral disturbance, psychotic disturbance, mood disturbance, and anxiety; E66.9 Obesity, unspecified; Z68.26 Body mass index [BMI] 26.0-26.9, adult; Z87.891 Personal history of nicotine dependence; Z86.73 Personal history of transient ischemic attack (TIA), and cerebral infarction without residual deficits ==

== ENCOUNTER → 2017-09-19 | Outpatient (CLI) | payer MEDICARE, MEDICAID | LOC: M.WC 04:14 | DX: E11.621 Type 2 diabetes mellitus with foot ulcer (principal); L97.521 Non-pressure chronic ulcer of other part of left foot limited to breakdown of skin; E11.51 Type 2 diabetes mellitus with diabetic peripheral angiopathy without gangrene; I10 Essential (primary) hypertension; E66.9 Obesity, unspecified; M81.0 Age-related osteoporosis without current pathological fracture; M19.90 Unspecified osteoarthritis, unspecified site; E78.5 Hyperlipidemia, unspecified; F03.90 Unspecified dementia, unspecified severity, without behavioral disturbance, psychotic disturbance, mood disturbance, and anxiety; F32.9 Major depressive disorder, single episode, unspecified; Z86.73 Personal history of transient ischemic attack (TIA), and cerebral infarction without residual deficits; Z87.891 Personal history of nicotine dependence; Z90.710 Acquired absence of both cervix and uterus ==

== ENCOUNTER 2017-09-21 06:14 | Inpatient (IN) | payer MEDICARE, MEDICAID ==
[~2017-09-21] VITALS: Wt 68.9 kg
[~2017-09-21 06:14] MED LIST changes: -ARTIFICIAL TEAR15 M1 OPHTHALMIC; -BACTROBAN CREAM30 G1 TOP; -CARVEDILOL3.125 MG PO; -CATAPRES-TTS 11 EACH TRANSDERM; -CEFUROXIME500 MG PO; -CYANOCOBAL1000 MCG/1 SUBQ; -GLUCAGON EMERGEN1 MG IM; -HYDROCODON-ACE1 EAC7 PO; -LEVAQUIN 250 M250 MG PO; -LISINOPRIL5 MG PO; -MACROBID 100 M100 M2 PO; -MELATONIN5 M1 PO; -MYLANTA PO; -NORVASC5 MG PO; -NYAMYC15 GM; -PHENERGAN 25 MG25 M1 PO; -PLAVIX 75 MG TA75 M1 PO; -PROBIOTIC1 EAC1 PO; -REMERON15 MG PO; -TYLENOL325 MG PO; -VENELEX OINTMEN60 GM INTRADERM; -ZYVOX600 MG PO
[2017-09-21 06:16] VITALS: BP 166/56
[2017-09-21] MEDS ORDERED: DOXYCYCLINE 10100 MG PO (06:42)
[2017-09-21] MEDS ORDERED: NYAMYC15 GM TOP (06:42)
[2017-09-21] MEDS ORDERED: PROBIOTIC1 EAC1 PO (06:42)
[2017-09-21 06:56] LABS: HEMATOCRIT 32.3 % (37.0-47.0); HEMOGLOBIN 10.2 gm/dL (12.0-15.0); MCH 27.1 pg (26.0-34.0); MCHC 31.6 g/dL (28.0-37.0); MCV 85.6 fL (80.0-100.0); NUCLEATED RBCS 0 /100WBC; PLATELET COUNT* 274 thou/uL (150-400); RBC 3.77 mil/uL (4.20-5.00); RDW-CV 16.6 % (10.5-14.5); WBC 22.2 thou/uL (4.0-11.0)
[2017-09-21 07:16] LABS: CALCIUM 9.4 mg/dL (8.5-10.1); CREATININE 1.5 mg/dL (0.6-1.3); POTASSIUM 3.9 mmol/L (3.5-5.1)
[2017-09-21 07:44] LABS: NT-PRO BRAIN NAT PEPTIDE 3316 pg/mL (<300); TROPONIN-I LEVEL <0.06 ng/mL (<0.06)
[2017-09-21 07:50] LABS: URINE BILIRUBIN NEGATIVE (Negative); URINE BLOOD 1+ (Negative); URINE CLARITY CLEAR; URINE COLOR YELLOW; URINE GLUCOSE-RANDOM 2+ (Negative); URINE KETONES NEGATIVE (Negative); URINE LEUKOCYTES-REFLEX 2+ (Negative); URINE NITRITE-REFLEX NEGATIVE (Negative); URINE PROTEIN TRACE (Negative); URINE UROBILINOGEN 0.2 E.U./dl (0.2-1.0)
[2017-09-21 08:03] LABS: BACTERIA-REFLEX >30 Many /HPF (None Seen); CASTS None Seen /LPF (None Seen); CRYSTALS None Seen /LPF (None Seen); SQUAMOUS 0-3 Few /LPF (0-3); URINE RBC None Seen /HPF (0-2); URINE WBC-REFLEX >25 Many /HPF (0-5)
[2017-09-21 08:20] LABS: ABSOLUTE BASOPHILS 0.2 thou/uL (0.0-0.2); ABSOLUTE EOSINOPHILS 0.2 thou/uL (0.0-0.7); ABSOLUTE LYMPHOCYTES 0.9 thou/uL (0.8-5.3); ABSOLUTE NEUTROPHILS 18.9 thou/uL (1.6-8.1); PLATELET ESTIMATE ADEQUATE
[2017-09-21 09:25] VITALS: BP 155/51
[2017-09-21 11:57] VITALS: BP 148/52
--- NOTE | 2017-09-21 15:55 | CON ---
[address] [address] CONSULTATION Name: TARSHA VILLA Room: [address] IN M.R.#: [id number] Admission: 09/21/17 Attend Phys: Kevin Genao, Discharge: Date of : 31 Report #: [id number] THIS REPORT FOR: //name// CC: Kiet Abhijit Genao DATE OF SERVICE: 09/21/2017 INFECTIOUS DISEASE CONSULTATION ATTENDING PHYSICIAN: Kevin Genao M.D. REASON FOR EVALUATION: Complicated urinary tract infection, also has longstanding issues with lower extremity wound, site of previous amputation, who has been followed for chronic osteomyelitis. HISTORY OF PRESENT ILLNESS: Chart reviewed, patient examined. This is an 86-year-old with extensive medical history, does have some degree of dementia who is disabled, resides in a facility, has diabetes mellitus with multiple complications, who apparently became more confused and was evaluated and found to be hypoglycemic and since corrected. However, due to ongoing issues with encephalopathy and in addition as she was experiencing some dyspnea, was transferred to the Emergency Room, was found to have marked pyuria, felt to have a urinary tract infection. She has been undergoing wound care on the medial aspect of the left foot, underwent transmetatarsal amputation, left first and second metatarsals in July of this year. She has a residual wound at the site of operative site. She did have a Staphylococcal infection dating back to June of this year, been on long course of therapy. Does admit to some generalized discomfort, nonspecific pain, has not had recent fevers empirically dosed with ceftriaxone. ALLERGIES: SULFA, OPIOIDS, CODEINE. CURRENT MEDICATIONS: Include ceftriaxone, ondansetron. Medicines at home include atorvastatin, pramipexole, aspirin, albuterol, famotidine, insulin, vancomycin, doxycycline, memantine, hydrocodone, lisinopril, bisacodyl. PAST MEDICAL HISTORY: Diabetes mellitus type 2, history of hypertension, osteoarthritis, osteoporosis, history of vertigo, psoriasis, peripheral vascular disease, depression, previous stroke on 2 occasions, hyperlipidemia, dementia, and tremors. SOCIAL HISTORY: Nonsmoker, no ethanol. FAMILY HISTORY: [place] [address] CONSULTATION Name: TARSHA VILLA Danielle Room: [address] IN [facility]#: [id number] Admission: 09/21/17 Attend Phys: Kevin Genao, Discharge: Date of : 31 Report #: [id number] REVIEW OF SYSTEMS: As above. PHYSICAL EXAMINATION: GENERAL: She is arousable, in vyco-vw-yggqrjia distress. She is a chronically ill-appearing, undernourished. VITAL SIGNS: Temperature 96.1, pulse 79, respirations 18, blood pressure 155/51. SKIN: Warm, dry, no rashes. HEENT: Otherwise unremarkable. NECK: Supple. LUNGS: Diminished, otherwise clear. HEART: Regular. CHEST: Chest wall has a subcutaneous mass, it is actually exquisitely tender, shows some mild degree of inflammation superficially, appears to be a soft, not fixed. ABDOMEN: Soft, nontender. EXTREMITIES: She does have a dressing over her left foot, mild maceration noted. GENITOURINARY AND RECTAL: Deferred. LABORATORY DATA: Lactic acid of 2.5 initially, then 2.3. CBC: White count of 22.2, H and H 10.2 and 32.3, platelets of 274. Urinalysis greater than 25 white cells, no red cells, greater than 30 bacteria. Troponin less than 0.06. Electrolytes: Sodium 142, potassium 3.9, chloride 105, bicarbonate is 29, BUN and creatinine 28 and 1.5. Chest x-ray, left basilar atelectasis. ASSESSMENT: Encephalopathy, certainly appears to have urinary tract infection. We will adjust therapy. I do not think she has had, in retrospect based on the available information, it has been roughly a year since she had a gram-negative infection. This was E. coli back in September of last year, it actually included a septicemia. It was moderately resistant at that point including ceftriaxone. We will adjust therapy and I did discuss with Dr. Genao. This lesion on her chest wall really seems to have an inflammatory component, it is quite tender. I asked Surgery to evaluate, I think this is reasonable and may need some sort of intervention. We will continue wound care as prescribed. The overall appearance of the site appears little changed from previous. <ELECTRONICALLY SIGNED> By: Jim Chen MD 09/21/17 1555 1047 [id number] Chen MD /nt
[2017-09-21 16:21] VITALS: BP 148/50
[2017-09-21 20:00] VITALS: BP 109/39
[2017-09-22] VITALS (7 sets, daily range): BP systolic 106–133; BP diastolic 40–81
[2017-09-22 04:58] LABS: HEMATOCRIT 22.3 % (37.0-47.0); MCH 27.3 pg (26.0-34.0); MCHC 31.2 g/dL (28.0-37.0); MCV 87.4 fL (80.0-100.0); MPV 9.4 fl. (7.2-11.1); RBC 2.55 mil/uL (4.20-5.00); RDW-CV 16.4 % (10.5-14.5); WBC 21.7 thou/uL (4.0-11.0)
[2017-09-22 06:00] LABS: CALCIUM 8.4 mg/dL (8.5-10.1); CREATININE 1.6 mg/dL (0.6-1.3); MAGNESIUM 1.6 mg/dL (1.8-2.4); POTASSIUM 4.3 mmol/L (3.5-5.1)
[2017-09-23] VITALS (7 sets, daily range): BP systolic 116–169; BP diastolic 42–94
[2017-09-23 04:33] LABS: HEMATOCRIT 26.6 % (37.0-47.0); HEMOGLOBIN 8.7 gm/dL (12.0-15.0); MCH 28.5 pg (26.0-34.0); MCHC 32.8 g/dL (28.0-37.0); MCV 87.1 fL (80.0-100.0); MPV 9.1 fl. (7.2-11.1); RBC 3.05 mil/uL (4.20-5.00); RDW-CV 17.2 % (10.5-14.5); WBC 15.7 thou/uL (4.0-11.0)
[2017-09-23 05:08] LABS: ALBUMIN 1.9 g/dL (3.4-5.0); CALCIUM 7.8 mg/dL (8.5-10.1); CREATININE 1.4 mg/dL (0.6-1.3); MAGNESIUM 1.7 mg/dL (1.8-2.4); POTASSIUM 3.4 mmol/L (3.5-5.1); TOTAL BILIRUBIN 0.5 mg/dL (<0.1-1.0); TOTAL PROTEIN 4.8 g/dL (6.4-8.2)
[2017-09-24] VITALS: BP 127/60
[2017-09-24 04:00] VITALS: BP 101/78
[2017-09-24 04:58] LABS: HEMATOCRIT 27.4 % (37.0-47.0); HEMOGLOBIN 8.9 gm/dL (12.0-15.0); MCH 28.7 pg (26.0-34.0); MCHC 32.5 g/dL (28.0-37.0); MCV 88.1 fL (80.0-100.0); MPV 9.4 fl. (7.2-11.1); RBC 3.11 mil/uL (4.20-5.00); RDW-CV 17.2 % (10.5-14.5); WBC 13.5 thou/uL (4.0-11.0)
[2017-09-24 05:03] LABS: CALCIUM 8.1 mg/dL (8.5-10.1); CREATININE 1.6 mg/dL (0.6-1.3); MAGNESIUM 1.6 mg/dL (1.8-2.4); POTASSIUM 3.4 mmol/L (3.5-5.1)
[2017-09-24 08:00] VITALS: BP 155/64
[2017-09-24 12:10] VITALS: BP 151/61
[2017-09-24 16:00] VITALS: BP 150/60
[2017-09-24 16:18] LABS: MAGNESIUM 1.9 mg/dL (1.8-2.4)
[2017-09-24 16:19] LABS: POTASSIUM 4.4 mmol/L (3.5-5.1)
[2017-09-24 19:57] LABS: URINE BILIRUBIN NEGATIVE (Negative); URINE BLOOD 1+ (Negative); URINE CLARITY CLEAR; URINE COLOR YELLOW; URINE GLUCOSE-RANDOM NEGATIVE (Negative); URINE KETONES NEGATIVE (Negative); URINE LEUKOCYTES-REFLEX 1+ (Negative); URINE NITRITE-REFLEX NEGATIVE (Negative); URINE PROTEIN 1+ (Negative); URINE SPECIFIC GRAVITY 1.025 (1.005-1.030); URINE UROBILINOGEN 0.2 E.U./dl (0.2-1.0)
[2017-09-24 20:00] VITALS: BP 147/56
[2017-09-24 20:10] LABS: BACTERIA-REFLEX None Seen /HPF (None Seen); CASTS None Seen /LPF (None Seen); CRYSTALS None Seen /LPF (None Seen); SQUAMOUS 0-3 Few /LPF (0-3); URINE RBC 0-2 Rare /HPF (0-2)
[2017-09-25] VITALS: BP 156/69
[2017-09-25 01:39] VITALS: BP 151/53
[2017-09-25 04:00] VITALS: BP 168/74
[2017-09-25 05:50] LABS: ABSOLUTE BASOPHILS 0.1 thou/uL (0.0-0.2); ABSOLUTE EOSINOPHILS 0.5 thou/uL (0.0-0.7); ABSOLUTE LYMPHOCYTES 2.3 thou/uL (0.8-5.3); ABSOLUTE MONOCYTES 1.5 thou/uL (0.0-1.2); ABSOLUTE NEUTROPHILS 7.6 thou/uL (1.6-8.1); BASOPHILS 0.7 %; EOSINOPHILS 4.4 %; HEMATOCRIT 27.4 % (37.0-47.0); HEMOGLOBIN 8.9 gm/dL (12.0-15.0); LYMPHOCYTES 18.9 %; MCH 28.4 pg (26.0-34.0); MCHC 32.5 g/dL (28.0-37.0); MCV 87.2 fL (80.0-100.0); MONOCYTES 12.3 %; MPV 9.3 fl. (7.2-11.1); NUCLEATED RBCS 0 /100WBC; PLATELET COUNT* 182 thou/uL (150-400); POLYS 63.7 %; RBC 3.14 mil/uL (4.20-5.00); RDW-CV 17.6 % (10.5-14.5)
[2017-09-25 06:05] LABS: ALBUMIN 1.9 g/dL (3.4-5.0); CALCIUM 8.4 mg/dL (8.5-10.1); CREATININE 1.3 mg/dL (0.6-1.3); POTASSIUM 4.3 mmol/L (3.5-5.1); TOTAL BILIRUBIN 0.2 mg/dL (<0.1-1.0); TOTAL PROTEIN 5.8 g/dL (6.4-8.2)
[2017-09-25 08:23] VITALS: BP 152/63
[2017-09-25 11:30] VITALS: BP 144/62
[2017-09-25 17:21] VITALS: BP 166/66
[2017-09-26] VITALS: BP 167/69
[2017-09-26 00:41] VITALS: BP 169/61
[2017-09-26 04:00] VITALS: BP 156/70
[2017-09-26 05:31] LABS: ABSOLUTE BASOPHILS 0.1 thou/uL (0.0-0.2); ABSOLUTE EOSINOPHILS 0.6 thou/uL (0.0-0.7); ABSOLUTE LYMPHOCYTES 2.3 thou/uL (0.8-5.3); ABSOLUTE MONOCYTES 1.5 thou/uL (0.0-1.2); ABSOLUTE NEUTROPHILS 7.7 thou/uL (1.6-8.1); BASOPHILS 0.7 %; EOSINOPHILS 4.6 %; HEMATOCRIT 27.6 % (37.0-47.0); HEMOGLOBIN 9.2 gm/dL (12.0-15.0); LYMPHOCYTES 19.3 %; MCH 28.7 pg (26.0-34.0); MCHC 33.4 g/dL (28.0-37.0); MONOCYTES 12.5 %; MPV 9.1 fl. (7.2-11.1); NUCLEATED RBCS 0 /100WBC; PLATELET COUNT* 201 thou/uL (150-400); POLYS 62.9 %; RBC 3.21 mil/uL (4.20-5.00); RDW-CV 17.8 % (10.5-14.5); WBC 12.2 thou/uL (4.0-11.0)
[2017-09-26 05:38] LABS: PREALBUMIN 13.9 mg/dL (18.0-35.7)
[2017-09-26 05:44] LABS: CALCIUM 8.4 mg/dL (8.5-10.1); CREATININE 1.1 mg/dL (0.6-1.3); POTASSIUM 3.9 mmol/L (3.5-5.1); TOTAL BILIRUBIN 0.3 mg/dL (<0.1-1.0)
[2017-09-26 08:00] VITALS: BP 136/64
[2017-09-26 12:03] VITALS: BP 169/62
--- NOTE | 2017-09-26 14:08 | H ---
[address] [address] HISTORY AND PHYSICAL Name: TARSHA VILLA Room: [address] IN .R.#: [id number] Admission: 09/21/17 Attend Phys: Kevin Genao, Discharge: Date of : 31 Report #: [id number] THIS REPORT FOR: //name// CC: Kiet Abhijit Genao CHIEF COMPLAINT: Followup of ulceration to left partial first ray amputation site. She was hospitalized with UTI and lesion to the anterior chest with subsequent surgical debridement. The foot has been stable with slow but progressive healing. She denies foot pain. PHYSICAL EXAMINATION: The distal foot wound is stable with yellow fibro-necrotic slough with no granulation visible. The proximal incision is well healed. There is no inflammation, cellulitis or signs of acute vascular embarrassment. The wound does appear smaller than it was and the wound has been progressively tena over time with smaller measurements. IMPRESSION: Postoperative wound to left distal partial first ray amputation site with prior osteomyelitis. PLAN: Excisional ulcer debridement with scissors and forceps to excise subcutaneous tissue, slough and callus. Scant bleeding stopped with pressure. The wound was cleansed and dressed with Aquacel Ag, 4 x 4, Kerlix gauze. Continue offloading in [facility]. We will follow the patient during hospitalization. <ELECTRONICALLY SIGNED> By: Jaswant Aguirre DPM 09/26/17 1408 1306 [id number] Aguirre, MAGEN /derian
--- NOTE | 2017-09-26 14:23 | CON ---
[address] [address] CONSULTATION Name: TARSHA VILLA Room: [address] IN .R.#: [id number] Admission: 09/21/17 Attend Phys: Kevin Genao, Discharge: Date of : 32 Report #: [id number] THIS REPORT FOR: //name// CC: Kiet Genao REASON FOR CONSULTATION: Pleural effusion. HISTORY OF PRESENT ILLNESS: The patient is an 86-year-old female patient who was admitted to this facility on 09/21/2017 after she presented with low blood sugars. Her sugar was in the 50s and given glucose with no improvement and was then given glucagon, she was admitted afterwards and hospitalized. She has partial first toe amputation, hospitalized with UTI and also she had lesions in anterior chest wall with subsequent surgical debridement. Also, she had mental status at time of presentation with change in mental status urinary tract infection. Her workup included a chest x-ray upon hospitalization that showed increased density along the left hemidiaphragm, possible atelectasis and pneumonia. Her followup chest x-ray on the third demonstrated multifocal pneumonia. CT scan was done today that demonstrated bilateral pleural effusion and some loculated effusion and fissure on the right side. When I saw the patient, she was on 4 liter oxygen, awake, alert. She tells me she had some shortness of breath but she does not have cough. She denied any swallowing difficulty. She was actually on diet during my evaluation, she is not sure if she had any fever and she could not tell me if she has oxygen at home or not. ALLERGIES: CODEINE, , SULFA, ZINC OXIDE. HOME MEDICATIONS: Atorvastatin, aspirin, senna, potassium supplement, albuterol, glucose, vancomycin, doxycycline. Also mentioned her medication list at home. PAST MEDICAL HISTORY: Diabetes, hypertension, history of MRSA, osteoporosis, history of UTI, history of hyperlipidemia and dementia. PAST SURGICAL HISTORY: Toe amputation, left femoral artery stent and hysterectomy. FAMILY HISTORY: Nonpertinent at this point. Reviewed with the patient. SOCIAL HISTORY: Does not smoke, does not drink alcohol. Does not abuse drugs. Resident of a long-term facility. REVIEW OF SYSTEMS: Twelve systems reviewed with the patient, negative as otherwise mentioned above, but please note the patient has dementia and history could be unreliable. PHYSICAL EXAMINATION: [place] [address] CONSULTATION Name: TARSHA VILLA Room: [address]#: [id number] Admission: 09/21/17 Attend Phys: Kevin Genao, Discharge: Date of : 31 Report #: [id number] GENERAL: Lying in bed on 4 liter oxygen. Speaks in full sentences, although slow speech. No distress. VITAL SIGNS: Blood pressure of 154/63, breathing 20 times a minute, pulse of 92, temperature 36.6. HEAD: Normocephalic, atraumatic. EYES: Pupils are reactive to light. ORAL CAVITY: Moist mucous membrane. NECK: Supple. CHEST: Diminished air movement bilaterally, some crackles at the right lung base. No wheezes. HEART: S1, S2, no murmur. ABDOMEN: Benign, soft, lax, nontender. LOWER EXTREMITIES: Dressing on the left lower extremity, I did not disturb. Right lower extremity, trace edema. SKIN: Normal for age and race, no rash. PSYCHIATRIC: Mood and affect difficult to evaluate, but she was calm and quiet. NEUROLOGIC: Moving 4 extremities spontaneously. No focal weakness. LABORATORY DATA: Her white blood count is 13.5, hemoglobin of 3.9. Her platelets 165. Her creatinine is 1.6, sodium 146, potassium 4.6. Her CT scan this morning demonstrated bilateral pleural effusion and possible pseudotumor on the right major fissure. IMPRESSION: 1. Acute hypoxic respiratory failure. 2. Pneumonia, likely aspiration. It was noted the patient passed swallow evaluation. 3. Signs of fluid overload, bilateral pleural effusion. 4. Pseudotumor loculated pleural effusion. The finding on the CT scan most likely represent pseudotumor, loculated pleural effusion within the fissure. It is related to fluid overload. Would recommend monitoring fluid status and avoid fluid overload. Consider p.r.n. diuresis. Regarding the aspiration pneumonia, she is on antibiotic. She actually passed swallow evaluation. She has , but I would continue with aspiration precaution risk. Antibiotics is being handled by ID at this point, would recommend start weaning the oxygen down. Thank you for the consult. <ELECTRONICALLY SIGNED> By: Diana Lay MD 09/26/17 1423 1212 [id number] Armijo MD /derian
[2017-09-26 16:00] VITALS: BP 155/52
[2017-09-27] VITALS (7 sets, daily range): BP systolic 136–184; BP diastolic 55–80
[2017-09-27 04:51] LABS: ABSOLUTE BASOPHILS 0.1 thou/uL (0.0-0.2); ABSOLUTE EOSINOPHILS 0.6 thou/uL (0.0-0.7); ABSOLUTE LYMPHOCYTES 2.2 thou/uL (0.8-5.3); ABSOLUTE MONOCYTES 1.4 thou/uL (0.0-1.2); ABSOLUTE NEUTROPHILS 7.6 thou/uL (1.6-8.1); BASOPHILS 0.8 %; HEMATOCRIT 29.1 % (37.0-47.0); HEMOGLOBIN 9.6 gm/dL (12.0-15.0); LYMPHOCYTES 18.9 %; MCH 28.6 pg (26.0-34.0); MCHC 32.9 g/dL (28.0-37.0); MCV 86.8 fL (80.0-100.0); MONOCYTES 11.6 %; MPV 8.9 fl. (7.2-11.1); NUCLEATED RBCS 0 /100WBC; PLATELET COUNT* 209 thou/uL (150-400); POLYS 63.7 %; RBC 3.35 mil/uL (4.20-5.00); RDW-CV 17.9 % (10.5-14.5); WBC 11.9 thou/uL (4.0-11.0)
[2017-09-27 05:02] LABS: PREALBUMIN 13.9 mg/dL (18.0-35.7)
[2017-09-27 05:07] LABS: CALCIUM 8.5 mg/dL (8.5-10.1); CREATININE 1.2 mg/dL (0.6-1.3); TOTAL BILIRUBIN 0.3 mg/dL (<0.1-1.0)
[2017-09-27] MEDS ORDERED: BACTROBAN CREAM30 G1 TOP (13:27)
[2017-09-27] MEDS ORDERED: LEVAQUIN 250 M250 MG PO (13:28)
[2017-09-27] MEDS ORDERED: MACROBID 100 M100 M2 PO (14:20)
--- NOTE | 2017-09-30 10:00 | CON ---
[address] [address] CONSULTATION Name: TARSHA VILLA Room: [address]#: [id number] Admission: 09/21/17 Attend Phys: Kevin Genao, Discharge: 09/27/17 Date of : 31 Report #: [id number] THIS REPORT FOR: //name// CC: TIFFANIE Genao DATE OF SERVICE: 09/22/2017 REASON FOR CONSULT: Drop in hemoglobin and anemia. REQUESTING PHYSICIAN: Dr. Kevin Genao. HISTORY OF PRESENT ILLNESS: This is an 86-year-old female with history of diabetes mellitus who also has had a recent foot surgery with tenderness and redness at the incision site. She was initially admitted on 09/21/2017 for further evaluation of this. She resides in [facility]. PAST MEDICAL HISTORY: Significant for history of chronic kidney disease, hypoglycemia, diabetes mellitus, skin infection, urinary tract infection, respiratory distress, sepsis, mental status changes, COPD, hyperlipidemia, GERD, hypertension. ALLERGIES AND MEDICATIONS: Please refer to hospital [facility]. SOCIAL HISTORY: The patient lives in [facility]. Denies tobacco or alcohol use. FAMILY HISTORY: Noncontributory. PHYSICAL EXAMINATION: VITAL SIGNS: Reveal blood pressure of 153/55, respirations 16, pulse 102, temperature 97.7. LUNGS: Clear. CARDIOVASCULAR: Regular. ABDOMEN: Soft, nontender, nondistended. Bowel sounds are positive. NEUROLOGIC: The patient is able to answer questions appropriately. LABORATORY DATA: Reveals sodium of 149, potassium 3.4, BUN is 29, creatinine 1.4, glucose 39. AST is 67, ALT is 13. Total bilirubin is 0.5. WBC is 15.7, with hemoglobin of 8.7 after transfusion of 1 unit of packed RBC. Platelet is 172. ASSESSMENT AND PLAN: The patient in diabetes, with poor control of her diabetes as she is either hypoglycemic or hyperglycemic. She came in with [facility] [place] [address] CONSULTATION Name: TARSHA VILLA Room: [address]#: [id number] Admission: 09/21/17 Attend Phys: Kevin Genao, Discharge: 09/27/17 Date of : 31 Report #: [id number] what appears to be infection at the site of recent foot surgery. She has dropped her hemoglobin from 10-7 and was transfused. We will go ahead and perform an upper endoscopy to assure that she does not have upper gastrointestinal source of bleeding. <ELECTRONICALLY SIGNED> By: Phillip Grace MD 09/30/17 1000 [id number] [id number] Grace MD /nt
--- NOTE | 2017-12-07 07:10 | PATH ---
[address] [address] PATHOLOGY RPT PROCEDURE Name: TARSHA VILLA Room: [address]#: [id number] Admission: 09/21/17 Date of : 31 Discharge: 09/27/17 Report #: [id number] Path Case #: [id number] Note [facility] Accession Number: [id number] TESTS RESULT FLAG UNITS REF RANGE LAB Clinician Provided Cytology Information No. of containers..01 Other (Miscellaneous) Source: LFT INT CHEST CYST DIAGNOSIS: LFT INT CHEST CYST NEGATIVE FOR MALIGNANT CELLS. ANUCLEATED SQUAMOUS CELLS ARE PRESENT. THIS INTERPRETATION INCLUDES EVALUATION OF A CELL BLOCK. COMMENT; THESE FINDINGS ARE CONSISTENT WITH A CYST. Signed out by: 02 Sriram Murphy MD, Pathologist NPI- [id number] Performed by: 02 Diamond Barnes, Lithoplate Maker ([facility]) Gross description: 01 1 ML, YELLOW RED, CLOUDY /LCS FLAG LEGEND: L-Low Normal,H-High Normal,LL-Alert Low,HH-Alert High <-Panic Low,>-Panic High,A-Abnormal,AA-Critical Abnormal Performed at: [address] [place] [address] Duc Alberto MD, [address] [address] Marcos Matias MD, Performed at: [address], [place], [place] [id number] MD Duc Alberto MD Phone: [phone]
[2018-03-06] MEDS ORDERED: BENADRYL25 MG PO (11:01)
== END 2017-09-27 14:55 | DRG 853 ==
LOC: M.ERS 06:14 → M.2W 08:27 → M.TBA-ER 08:27 → M.2W 09:36
PROVIDERS: Emergency Medicine; Internal Medicine; Internal Medicine Gastroenterology; Specialist; Surgery; ADMIT Family Medicine
DX: A41.9 Sepsis, unspecified organism (principal); J69.0 Pneumonitis due to inhalation of food and vomit; G93.40 Encephalopathy, unspecified; N17.0 Acute kidney failure with tubular necrosis; J96.01 Acute respiratory failure with hypoxia; E43 Unspecified severe protein-calorie malnutrition; N39.0 Urinary tract infection, site not specified; J90 Pleural effusion, not elsewhere classified; J44.1 Chronic obstructive pulmonary disease with (acute) exacerbation; J98.11 Atelectasis; D62 Acute posthemorrhagic anemia; M19.90 Unspecified osteoarthritis, unspecified site; E66.9 Obesity, unspecified; G25.81 Restless legs syndrome; M81.0 Age-related osteoporosis without current pathological fracture; F32.9 Major depressive disorder, single episode, unspecified; G89.29 Other chronic pain; M89.8X9 Other specified disorders of bone, unspecified site; E78.5 Hyperlipidemia, unspecified; F03.90 Unspecified dementia, unspecified severity, without behavioral disturbance, psychotic disturbance, mood disturbance, and anxiety; E11.649 Type 2 diabetes mellitus with hypoglycemia without coma; N18.9 Chronic kidney disease, unspecified; K21.0 Gastro-esophageal reflux disease with esophagitis; K22.2 Esophageal obstruction; E83.42 Hypomagnesemia; K44.9 Diaphragmatic hernia without obstruction or gangrene; E11.22 Type 2 diabetes mellitus with diabetic chronic kidney disease; E87.70 Fluid overload, unspecified; E11.51 Type 2 diabetes mellitus with diabetic peripheral angiopathy without gangrene; Z88.2 Allergy status to sulfonamides; I12.9 Hypertensive chronic kidney disease with stage 1 through stage 4 chronic kidney disease, or unspecified chronic kidney disease; Z89.412 Acquired absence of left great toe; Z86.73 Personal history of transient ischemic attack (TIA), and cerebral infarction without residual deficits; Z90.710 Acquired absence of both cervix and uterus; Z87.891 Personal history of nicotine dependence; Z95.820 Peripheral vascular angioplasty status with implants and grafts; Z88.6 Allergy status to analgesic agent; Z88.8 Allergy status to other drugs, medicaments and biological substances; Z79.82 Long term (current) use of aspirin; Z79.899 Other long term (current) drug therapy

== ENCOUNTER → 2017-10-03 | Outpatient (CLI) | payer MEDICARE, MEDICAID ==
[~2017-10-03] MED LIST changes: +ARTIFICIAL TEAR15 M1 OPHTHALMIC; +BACTROBAN CREAM30 G1 TOP; +CARVEDILOL3.125 MG PO; +CATAPRES-TTS 11 EACH TRANSDERM; +CEFUROXIME500 MG PO; +CYANOCOBAL1000 MCG/1 SUBQ; +GLUCAGON EMERGEN1 MG IM; +HYDROCODON-ACE1 EAC7 PO; +LEVAQUIN 250 M250 MG PO; +LISINOPRIL5 MG PO; +MACROBID 100 M100 M2 PO; +MELATONIN5 M1 PO; +MYLANTA PO; +NORVASC5 MG PO; +NYAMYC15 GM; +PHENERGAN 25 MG25 M1 PO; +PLAVIX 75 MG TA75 M1 PO; +PROBIOTIC1 EAC1 PO; +REMERON15 MG PO; +TYLENOL325 MG PO; +VENELEX OINTMEN60 GM INTRADERM; +ZYVOX600 MG PO
== END ==
LOC: M.WC 00:41
DX: E11.621 Type 2 diabetes mellitus with foot ulcer (principal); L97.521 Non-pressure chronic ulcer of other part of left foot limited to breakdown of skin; E11.51 Type 2 diabetes mellitus with diabetic peripheral angiopathy without gangrene; I10 Essential (primary) hypertension; E66.9 Obesity, unspecified; E78.5 Hyperlipidemia, unspecified; M19.90 Unspecified osteoarthritis, unspecified site; M81.0 Age-related osteoporosis without current pathological fracture; F32.9 Major depressive disorder, single episode, unspecified; F03.90 Unspecified dementia, unspecified severity, without behavioral disturbance, psychotic disturbance, mood disturbance, and anxiety; Z87.891 Personal history of nicotine dependence; Z86.73 Personal history of transient ischemic attack (TIA), and cerebral infarction without residual deficits; Z90.710 Acquired absence of both cervix and uterus; Z68.26 Body mass index [BMI] 26.0-26.9, adult

== ENCOUNTER → 2017-10-10 | Outpatient (CLI) | payer MEDICARE, MEDICAID | LOC: M.WC 04:08 | DX: E11.621 Type 2 diabetes mellitus with foot ulcer (principal); L89.893 Pressure ulcer of other site, stage 3; L97.521 Non-pressure chronic ulcer of other part of left foot limited to breakdown of skin; M19.90 Unspecified osteoarthritis, unspecified site; E66.9 Obesity, unspecified; M81.0 Age-related osteoporosis without current pathological fracture; I10 Essential (primary) hypertension; E11.51 Type 2 diabetes mellitus with diabetic peripheral angiopathy without gangrene; L40.9 Psoriasis, unspecified; F32.9 Major depressive disorder, single episode, unspecified; E78.5 Hyperlipidemia, unspecified; F03.90 Unspecified dementia, unspecified severity, without behavioral disturbance, psychotic disturbance, mood disturbance, and anxiety; Z86.73 Personal history of transient ischemic attack (TIA), and cerebral infarction without residual deficits; Z87.891 Personal history of nicotine dependence; Z90.710 Acquired absence of both cervix and uterus ==

== ENCOUNTER 2017-10-22 04:40 | Inpatient (IN) | payer MEDICARE, MEDICAID ==
[~2017-10-22] VITALS: Ht 160 cm; Wt 72.6 kg
[~2017-10-22 04:40] MED LIST changes: -ARTIFICIAL TEAR15 M1 OPHTHALMIC; -CARVEDILOL3.125 MG PO; -CATAPRES-TTS 11 EACH TRANSDERM; -CEFUROXIME500 MG PO; -CYANOCOBAL1000 MCG/1 SUBQ; -GLUCAGON EMERGEN1 MG IM; -HYDROCODON-ACE1 EAC7 PO; -LISINOPRIL5 MG PO; -MELATONIN5 M1 PO; -MYLANTA PO; -NORVASC5 MG PO; -NYAMYC15 GM; -PHENERGAN 25 MG25 M1 PO; -PLAVIX 75 MG TA75 M1 PO; -REMERON15 MG PO; -TYLENOL325 MG PO; -VENELEX OINTMEN60 GM INTRADERM; -ZYVOX600 MG PO
[2017-10-22 04:41] VITALS: BP 143/54
--- NOTE | 2017-10-22 04:48 | NUR ---
SPOKE TO NIKOLAS AT THIS TIME. GIVEN HER CONSENT TO TREAT. SHE WOULD LIKE A CALL REGARDING XRAY RESULTS
[2017-10-22] MEDS ORDERED: GLUCAGON EMERGEN1 MG IM (04:53)
[2017-10-22] MEDS ORDERED: THEREMS-M1 EACH PO (04:55)
[2017-10-22] MEDS ORDERED: NYAMYC15 GM (05:15)
[2017-10-22] MEDS ORDERED: ARTIFICIAL TEAR15 M1 OPHTHALMIC (05:16)
[2017-10-22] MEDS ORDERED: REMERON15 MG PO (05:18)
[2017-10-22 06:56] LABS: ABSOLUTE BASOPHILS 0.1 thou/uL (0.0-0.2); ABSOLUTE EOSINOPHILS 0.5 thou/uL (0.0-0.7); ABSOLUTE LYMPHOCYTES 1.7 thou/uL (0.8-5.3); ABSOLUTE MONOCYTES 1.3 thou/uL (0.0-1.2); EOSINOPHILS 5.1 %; HEMATOCRIT 28.6 % (37.0-47.0); HEMOGLOBIN 9.3 gm/dL (12.0-15.0); LYMPHOCYTES 17.8 %; MCH 28.8 pg (26.0-34.0); MCHC 32.5 g/dL (28.0-37.0); MCV 88.4 fL (80.0-100.0); MONOCYTES 13.4 %; MPV 8.8 fl. (7.2-11.1); NUCLEATED RBCS 0 /100WBC; PLATELET COUNT* 234 thou/uL (150-400); POLYS 62.7 %; RBC 3.23 mil/uL (4.20-5.00); RDW-CV 17.3 % (10.5-14.5); WBC 9.6 thou/uL (4.0-11.0)
[2017-10-22 07:04] LABS: CALCIUM 8.6 mg/dL (8.5-10.1); CREATININE 1.4 mg/dL (0.6-1.3); POTASSIUM 4.4 mmol/L (3.5-5.1)
[2017-10-22 07:42] LABS: URINE BILIRUBIN NEGATIVE (Negative); URINE BLOOD 1+ (Negative); URINE CLARITY SL CLOUDY; URINE COLOR YELLOW; URINE GLUCOSE-RANDOM 2+ (Negative); URINE KETONES NEGATIVE (Negative); URINE PROTEIN 1+ (Negative); URINE UROBILINOGEN 0.2 E.U./dl (0.2-1.0)
[2017-10-22 07:44] LABS: URINE LEUKOCYTES-REFLEX 2+ (Negative); URINE NITRITE-REFLEX POSITIVE (Negative)
[2017-10-22 07:50] LABS: BACTERIA-REFLEX >30 Many /HPF (None Seen); CASTS None Seen /LPF (None Seen); CRYSTALS None Seen /LPF (None Seen); MUCUS 0-3 Light strn/LPF (None Seen); SQUAMOUS 0-3 Few /LPF (0-3); URINE RBC 3-10 Few /HPF (0-2); URINE WBC-REFLEX >25 Many /HPF (0-5)
[2017-10-22 08:15] LABS: NT-PRO BRAIN NAT PEPTIDE 18737 pg/mL (<300); TROPONIN-I LEVEL <0.06 ng/mL (<0.06)
[2017-10-22 09:00] VITALS: BP 156/66
--- NOTE | 2017-10-22 09:00 | NUR ---
REPORT FROM ER PATIENT TO 211 VIA CART ASSISTED TO BED AND ORIENTED TO RM AND CALL LIGHT BED ALARM SET
[2017-10-22 09:15] VITALS: BP 142/81
[2017-10-22 11:25] VITALS: BP 139/53
[2017-10-22 15:42] VITALS: BP 151/60
--- NOTE | 2017-10-22 16:08 | EKG ---
[place] [address] ELECTROCARDIOGRAM REPORT Name: TARSHA VILLA Room: [address] IN [facility].#: [id number] Admission: 10/22/17 Attend Phys: Adrian Ceron MD Discharge: Date of : 31 Report #: [id number] THIS REPORT FOR: //name// [facility] ED Test Date: 2017-10-22 Test Time: 08:44:07 Pat Name: TARSHA ALLEN Department: Room: Gender: Critical Care Technician: Mariela BEST : 1930 Requested By: Jaspal Rodgers Order Number: [id number] MD: Prosper Mckeon Measurements Intervals [place] Rate: 74 P: 30 NV: 141 QRS: 30 QRSD: 99 T: 235 QT: 424 QTc: 471 Interpretive Statements Sinus rhythm Borderline repolarization abnormality Compared to ECG 05/30/2017 12:25:35 Ventricular premature complex(es) no longer present Electronically Signed On 10-22-2017 16:08:45 CDT by Prosper Mckeon [email or web address] <ELECTRONICALLY SIGNED> By: Prosper Mckeon MD, [facility] 10/22/17 1608 0844 0844 Prosper Mckeon MD, [facility] /EPI
--- NOTE | 2017-10-22 16:43 | 2DMMODE ---
[place] [address] 2 D/M-MODE ECHOCARDIOGRAM Name: TARSHA VILLA Room: [address] IN [facility]#: [id number] Admission: 10/22/17 Attend Phys: Adrian Ceron, Discharge: Date of : 31 Date of Service: 10/22/17 1642 Report #: [id number] THIS REPORT FOR: //name// APPROVED REPORT Study performed: 10/22/2017 14:23:25 EXAM: Comprehensive 2D, Doppler, and color-flow Echocardiogram Patient Location: In-Patient Room #: [facility] Status: routine BSA: 1.76 HR: 88 bpm BP: 139/53 mmHg Rhythm: NSR Other Information Study Quality: Good Indications Abnormal ECG 2D Dimensions LVEF(%): 40.45 (>50%) IVSd: 14.57 (7-11mm) LVOT Diam: 19.66 (18-24mm) LVDd: 48.48 mm PWd: 12.88 (7-11mm) Ascending Ao: 29.51 (22-36mm) LVDs: 38.90 (25-40mm) Aortic Root: 32.98 mm Almeida's LVEF: 40.45 % Volumes Left Atrial Volume (Systole) LA ESV Index: 44.60 mL/m2 Aortic Valve AoV Peak Kishore.: 1.29 m/s AO Peak Gr.: 6.66 mmHg LVOT Max P.79 mmHg AO Mean Gr.: 4.04 mmHg LVOT Mean P.85 mmHg LVOT Max V: 0.67 m/s AO V2 VTI: 26.53 cm LVOT Mean V: 0.42 m/s NICOLE (VTI): 1.65 cm2 LVOT V1 VTI: 14.45 cm Mitral Valve E/A Ratio: 1.57 [place] [address] 2 D/M-MODE ECHOCARDIOGRAM Name: TARSHA VILLA Room: [address] IN [facility].#: [id number] Admission: 10/22/17 Attend Phys: Adrian Ceron, Discharge: Date of : 31 Date of Service: 10/22/17 1642 Report #: [id number] MV Decel. Time: 165.76 ms MV E Max Kishore.: 1.38 m/s MV PHT: 48.07 ms MVA (PHT): 4.58 cm2 TDI E/Lateral E': 15.33 E/Medial E': 27.60 Medial E' Kishore.: 0.05 m/s Lateral E' Kishore.: 0.09 m/s Pulmonary Valve PV Peak Kishore.: 0.91 m/s PV Peak Gr.: 3.33 mmHg Tricuspid Valve RAP Estimate: 5.00 mmHg TR Peak Gr.: 66.22 mmHg RVSP: 71.22 mmHg PA Pressure: 71.22 mmHg Left Ventricle The left ventricle is normal size. akinesis noted of the distal anteroseptal and apical wall Mild concentric left ventricular hypertrophy. Left ventricular systolic function is decreased. LVEF is 30-35%. The left ventricular diastolic function is normal. Right Ventricle The right ventricle is normal size. The right ventricular systolic function is normal. Atria Left atrium is moderately dilated. The right atrium size is normal. Aortic Valve Mild aortic valve sclerosis. Mild aortic regurgitation. Mild aortic stenosis. Mitral Valve There is mitral annular calcification. Mild mitral regurgitation. Mild mitral stenosis. Tricuspid Valve The tricuspid valve is normal in structure. Moderate tricuspid regurgitation. estimated pa pressure 75 mm Hg Pulmonic Valve The pulmonary valve is normal in structure[place] [address] 2 D/M-MODE ECHOCARDIOGRAM Name: TARSHA VILLA Room: [address]#: [id number] Admission: 10/22/17 Attend Phys: Adrian Ceron, Discharge: Date of : 31 Date of Service: 10/22/17 1642 Report #: [id number] regurgitation. Great Vessels The aortic root is normal in size. IVC is normal in size and collapses with >50% inspiration Pericardium There is no pericardial effusion. Left pleural effusion. <Conclusion> Mild concentric left ventricular hypertrophy. LVEF is 30-35%. Left atrium is moderately dilated. Mild aortic stenosis. Mild aortic regurgitation. Mild mitral regurgitation. Mild mitral stenosis. Moderate tricuspid regurgitation. estimated pa pressure 75 mm Hg <ELECTRONICALLY SIGNED> By: Prosper Mckeon MD, FACC 10/22/171641 41 41 Prosper Mckeon MD, FACC /INF
--- NOTE | 2017-10-22 19:33 | NUR ---
PATIENT REMAINS A AND O X 2, CONFUSED, LETHARGIC SR/1ST DEGR LUNGS COARSE/DIM ON RA-O2 SATS MID 90S APPETITE FAIR, ASSIST FEED LAST BM UNKNOWN INC URINE BR TURN IV 20 GA R FA SL CALL LIGHT IN REACH AND INSTRUCTION GIVEN, FOLLOWS AT TIMES NO C/O PAIN ACCUCHECKS 129/92 OLD BRUISING B EYES, FAS, L GR TOE , RECENT AMPUTATION WOUND CONS DRSG CHANGED TODAY BY DR WOLF CONTACT ISOLATION MRSA NARES
[2017-10-22 20:00] VITALS: BP 151/60
[2017-10-23] VITALS: BP 142/66
[2017-10-23 04:00] VITALS: BP 134/74
--- NOTE | 2017-10-23 04:55 | NUR ---
ASSUMED PT CARE AT 1930. ASSESSMENT COMPLETED CHARTED. ABLE TO MAKE SOME NEEDS KNOWN. PT INCONTINENT OF BOWEL AND BLADDER. PT RESTING IN BED ALL NIGHT, Q2 TURN. NO C/O PAIN OR DISCOMFORT. WILL CONTINUE TO MONITOR.
[2017-10-23 05:28] LABS: HEMATOCRIT 25.8 % (37.0-47.0); HEMOGLOBIN 8.5 gm/dL (12.0-15.0); MCH 29.1 pg (26.0-34.0); MCHC 32.9 g/dL (28.0-37.0); MCV 88.3 fL (80.0-100.0); MPV 8.9 fl. (7.2-11.1); RBC 2.92 mil/uL (4.20-5.00); RDW-CV 17.3 % (10.5-14.5); WBC 9.1 thou/uL (4.0-11.0)
[2017-10-23 05:36] LABS: CALCIUM 8.2 mg/dL (8.5-10.1); CREATININE 1.5 mg/dL (0.6-1.3); MAGNESIUM 1.8 mg/dL (1.8-2.4); POTASSIUM 4.2 mmol/L (3.5-5.1)
[2017-10-23 08:00] VITALS: BP 158/62
[2017-10-23 12:00] VITALS: BP 123/36
--- NOTE | 2017-10-23 15:02 | NUR ---
PER PREVIOUS RECORDS AND PT., SHE LIVES AT [facility] AND IS DEPENDENT FOR ADLS. SHE SAYS SHE CAN DO HER OWN GROOMING AND FEEDING. SHE IS HOLDING HER ICE WATER UPON ARRIVAL. PT. IS UNSURE OF HOW SHE COMPLETES TRANSFERS BUT PER RECORDS SHE NEEDS MAX A X 1-2 FOR W/C TRANSFERS. THUS, O.T. SERVICES ARE NOT INDICATED AT THIS TIME.
--- NOTE | 2017-10-23 15:02 | NUR ---
P.T. ORDERS RECEIVED. CHART REVIEWED. 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 SHE REQUIRES MAX A OF 1-2 FOR ALL TRANSFERS AND CARES. PT IS W/C BOUND. ACUTE P.T. INTERVENTION IS NOT INDICATED PT IS AT/NEAR BASELINE.
--- NOTE | 2017-10-23 15:58 | NUR ---
WOUND NURSE: PATIENT WAS SEEN TODAY BY DR. LEANDRO DPM AND FOOT WOUND WAS DRESSED BY THE STAFF NURSE. WOUND NOT ASSESSED BY THIS NURSE A RESULT.
--- NOTE | 2017-10-23 16:08 | NUR ---
PATIENT TRANSFERRED FROM [facility]. REPORT RECEIVED FROM MATIAS MONTERO. PATIENT ALERT AND ORIENTED. DRESSING TO LEFT GREAT TOE CHANGED PER PROTOCOL. IV SL. CONTACT PRECATIONS IN PLACE FOR MRSA OF THE NARES.
[2017-10-23 16:13] VITALS: BP 160/70
[2017-10-24 01:02] VITALS: BP 170/57
[2017-10-24 04:42] LABS: HEMATOCRIT 27.4 % (37.0-47.0); MCH 28.8 pg (26.0-34.0); MCHC 32.8 g/dL (28.0-37.0); MCV 87.7 fL (80.0-100.0); RBC 3.12 mil/uL (4.20-5.00); RDW-CV 17.4 % (10.5-14.5); WBC 9.7 thou/uL (4.0-11.0)
--- NOTE | 2017-10-24 05:19 | NUR ---
ASSESSMENT COMPLETE. PT SLEPT THROUGH THE NIGHT WITHOUT ANY CONCERNS. PT INCONT OF BOWEL AND BLADDER. PT Q2 TURN. PT IS FALL RISK, BED ALARM ON. PT TAKES MEDS WITH WATER WITHOUT DIFFICULTY. PT DENIES PAIN. PT IS ON ROOM AIR WITH [place] SATS. PT IS IN ISOLATION FOR MRSA IN NARES. IV IN LEFT HAND, SALINE LOCKED AND FLUSHES WITHOUT DIFFICULTY. DRESSING TO RIGHT FOOT INTACT. SEE ASSESSMENT AND VITALS FOR OTHER DETAILS. CALL LIGHT WITHIN REACH, WILL CONTINUE PLAN OF CARE
[2017-10-24 05:29] LABS: CALCIUM 8.7 mg/dL (8.5-10.1); CREATININE 1.6 mg/dL (0.6-1.3); MAGNESIUM 1.8 mg/dL (1.8-2.4); POTASSIUM 4.2 mmol/L (3.5-5.1)
[2017-10-24 08:00] VITALS: BP 144/59
[2017-10-24 15:43] VITALS: BP 124/42
--- NOTE | 2017-10-24 18:26 | NUR ---
PT TURNED EVERY 2 HOURS THIS SHIFT. PT ABLE TO FEED HERSELF WITHOUT DIFFICULTY. PT WAS ABLE TO SWALLOW PILLS WHOLE FOR THIS NURSE. DRESSING CHANGED PER THIS NURSE THIS AFTERNOON. AQUACEL PLACED ON LEFT TOE AMPUTATION AREA, 4X4'S PLACED AT CUREL WRAP.
[2017-10-24 20:00] VITALS: BP 133/43
--- NOTE | 2017-10-25 06:08 | NUR ---
ASSUMED CARE OF PATIENT AT 1900 THE PATIENT REMAINS ON RA O2 SAT MAINTAINED CONTINUES ISOLATION FOR MRSA IN THE NARES CONTINUES TO BE UP WITH MAX ASSIST OF 2 THE ROUTINE REGIMEN CONTINUES TO BE EFFECTIVE FOR SX MANAGEMENT PATIENT PROGRESSING TOWARDS GOALS NIGHT UNEVENTFUL SAFETY INTERVENTIONS CONTINUE BED LOWERED WHEELS LOCKED CALL LIGHT IN REACH SIDE RAILS UP REPORT TO BE GIVEN TO SKYLAR SALCEDO
[2017-10-25 07:30] VITALS: BP 141/68
[2017-10-25 08:18] LABS: CALCIUM 9.8 mg/dL (8.5-10.1); CREATININE 1.6 mg/dL (0.6-1.3); MAGNESIUM 1.9 mg/dL (1.8-2.4)
--- NOTE | 2017-10-25 11:04 | NUR ---
INITIAL ASSESSMENT: Pt evaluated for d/c planning needs. Reviewed chart. 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. Pt is at w/c level of care at facility. Spoke with information coordinator at facility and they are able to accept pt back on d/c from hospital. Will remain available to assist as needed.
[2017-10-25 15:26] VITALS: BP 105/71
--- NOTE | 2017-10-25 19:06 | NUR ---
SHIFT NOTE - TURNED PT Q 2 HRS. PT INC OF URINE. CHANGED DRESSING TO LEFT TOE WOUND AT 1830. POSSIBLE DISCHARGE BACK TO [facility]. PT UP TO CHAIR FOR BREAKFAST WITH MOD ASSIST X 1. TOLERATED WELL.
[2017-10-25 21:16] VITALS: BP 131/44
--- NOTE | 2017-10-26 05:41 | NUR ---
PATIENT SLEPT MOST OF THE NIGHT. PATIENT HAD NO COMPLAINTS OF PAIN. PATIENT WAS TURNED AND CHANGED ABOUT EVERY TWO HOURS. PATIENT IS POSSIBLY GOING HOME TODAY. WILL CONTINUE TO MONITOR.
[2017-10-26 09:00] VITALS: BP 149/59
[2017-10-26 09:20] VITALS: BP 149/59
--- NOTE | 2017-10-26 12:00 | NUR ---
Cardiac Rehab. Did not see patient due to mental status and no family in room.
[2017-10-26] MEDS ORDERED: CEFUROXIME500 MG PO (12:01)
[2017-10-26] MEDS ORDERED: CYANOCOBAL1000 MCG/1 SUBQ (12:05)
--- NOTE | 2017-10-26 12:37 | NUR ---
FAXED ORDERS TO [facility] . PT WILL BE PICKED UP AT 2:00 W/C PROVIDED BY FACILITY .
--- NOTE | 2017-10-26 14:23 | NUR ---
PATIENT DISCHARGED TO [facility] AT THIS TIME, PATIENTS DAUGHTER NOTIFIED. REPORT CALLED TO TOM. IV WAS PREVIOUSLY DC'D. PATIENT INCONTINENT OF URINE, TURNED Q2. PATIENT ABLE TO FEED SELF, NO COUGHING NOTED. PATIENT LEFT VIA [facility] WITH ALL BELONGINGS.
--- NOTE | 2017-10-31 13:47 | CON ---
[address] [address] CONSULTATION Name: TARSHA VILLA Room: [address]#: [id number] Admission: 10/22/17 Attend Phys: Adrian Ceron MD Discharge: 10/26/17 Date of : 31 Report #: [id number] THIS REPORT FOR: //name// CC: Adrian Lacey DATE OF SERVICE: 10/22/2017 CHIEF COMPLAINT: Consultation for postoperative wound to left partial first ray amputation site. HISTORY OF PRESENT ILLNESS: The patient is well known to me, I performed a resection of the left hallux with subsequent left distal first metatarsal resection on 08/02/2017. She was admitted today for urinary tract infection. PHYSICAL EXAMINATION: Postoperative wound is tena with no inflammation or cardinal signs of infection. There is red granulation with some overlying pale slough. No exposed bone, tendon or joint. No pallor, cyanosis or pain to palpation. IMPRESSION: Healing postoperative wound, left foot, complicated by peripheral vascular disease and type 2 diabetes mellitus. PLAN: Excisional ulcer debridement of the wound with scissors, forceps and a curette to remove subcutaneous tissue and slough from the wound. Bleeding was stopped with pressure. The wound was cleansed and dressed with Aquacel Ag and Kerlix gauze. The patient to have daily dressing change during her hospitalization. Dr. Chen, Infectious Diseases, has been consulted as well. She is on parenteral ceftriaxone. <ELECTRONICALLY SIGNED> By: Jaswant Aguirre DPM 10/31/17 1347 1254 [id number] Aguirre DPM /nt
[2018-03-06] MEDS ORDERED: BENADRYL25 MG PO (11:01)
== END 2017-10-26 14:24 | DRG 40 ==
LOC: M.ERS 04:40 → M.TBA-ER 08:01 → M.2W 08:01 → M.3W 10-23 14:13
PROVIDERS: Emergency Medicine; Emergency Medicine Emergency Medical Services; ADMIT Internal Medicine
PROC: 0JBR0ZZ Excision of Left Foot Subcutaneous Tissue and Fascia, Open Approach (ICD-10-PCS; principal; 2017-10-22)
DX: G92 Toxic encephalopathy (principal); I50.43 Acute on chronic combined systolic (congestive) and diastolic (congestive) heart failure; N30.00 Acute cystitis without hematuria; I13.0 Hypertensive heart and chronic kidney disease with heart failure and stage 1 through stage 4 chronic kidney disease, or unspecified chronic kidney disease; I42.9 Cardiomyopathy, unspecified; E11.9 Type 2 diabetes mellitus without complications; M19.90 Unspecified osteoarthritis, unspecified site; E66.9 Obesity, unspecified; G25.81 Restless legs syndrome; M81.0 Age-related osteoporosis without current pathological fracture; L40.9 Psoriasis, unspecified; Z66 Do not resuscitate; N18.3 Chronic kidney disease, stage 3 (moderate); M48.00 Spinal stenosis, site unspecified; E11.51 Type 2 diabetes mellitus with diabetic peripheral angiopathy without gangrene; F32.9 Major depressive disorder, single episode, unspecified; B96.4 Proteus (mirabilis) (morganii) as the cause of diseases classified elsewhere; Z16.23 Resistance to quinolones and fluoroquinolones; E78.5 Hyperlipidemia, unspecified; R29.6 Repeated falls; E53.8 Deficiency of other specified B group vitamins; F03.90 Unspecified dementia, unspecified severity, without behavioral disturbance, psychotic disturbance, mood disturbance, and anxiety; I08.0 Rheumatic disorders of both mitral and aortic valves; T40.605A Adverse effect of unspecified narcotics, initial encounter; Y92.89 Other specified places as the place of occurrence of the external cause; Z68.28 Body mass index [BMI] 28.0-28.9, adult; Z87.891 Personal history of nicotine dependence; Z86.73 Personal history of transient ischemic attack (TIA), and cerebral infarction without residual deficits; Z90.710 Acquired absence of both cervix and uterus; Z89.412 Acquired absence of left great toe; Z95.820 Peripheral vascular angioplasty status with implants and grafts; Z79.4 Long term (current) use of insulin; Z79.82 Long term (current) use of aspirin; Z79.899 Other long term (current) drug therapy; Z88.2 Allergy status to sulfonamides; Z88.5 Allergy status to narcotic agent; Z88.8 Allergy status to other drugs, medicaments and biological substances

== ENCOUNTER → 2017-10-31 | Outpatient (CLI) | payer MEDICARE, MEDICAID ==
[~2017-10-31] MED LIST changes: +ARTIFICIAL TEAR15 M1 OPHTHALMIC; +CARVEDILOL3.125 MG PO; +CATAPRES-TTS 11 EACH TRANSDERM; +CEFUROXIME500 MG PO; +CYANOCOBAL1000 MCG/1 SUBQ; +GLUCAGON EMERGEN1 MG IM; +HYDROCODON-ACE1 EAC7 PO; +LISINOPRIL5 MG PO; +MELATONIN5 M1 PO; +MYLANTA PO; +NORVASC5 MG PO; +NYAMYC15 GM; +PHENERGAN 25 MG25 M1 PO; +PLAVIX 75 MG TA75 M1 PO; +REMERON15 MG PO; +TYLENOL325 MG PO; +VENELEX OINTMEN60 GM INTRADERM; +ZYVOX600 MG PO
== END ==
LOC: M.WC 04:39
DX: E11.621 Type 2 diabetes mellitus with foot ulcer (principal); I70.245 Atherosclerosis of native arteries of left leg with ulceration of other part of foot; L97.521 Non-pressure chronic ulcer of other part of left foot limited to breakdown of skin; L89.893 Pressure ulcer of other site, stage 3; E11.40 Type 2 diabetes mellitus with diabetic neuropathy, unspecified; I10 Essential (primary) hypertension; M19.90 Unspecified osteoarthritis, unspecified site; E66.9 Obesity, unspecified; M81.0 Age-related osteoporosis without current pathological fracture; L40.9 Psoriasis, unspecified; E11.51 Type 2 diabetes mellitus with diabetic peripheral angiopathy without gangrene; F32.9 Major depressive disorder, single episode, unspecified; E78.5 Hyperlipidemia, unspecified; F03.90 Unspecified dementia, unspecified severity, without behavioral disturbance, psychotic disturbance, mood disturbance, and anxiety; Z86.73 Personal history of transient ischemic attack (TIA), and cerebral infarction without residual deficits; Z68.26 Body mass index [BMI] 26.0-26.9, adult; Z87.891 Personal history of nicotine dependence; Z90.710 Acquired absence of both cervix and uterus

== ENCOUNTER → 2017-11-14 | Outpatient (CLI) | payer MEDICARE, MEDICAID | LOC: M.WC 04:47 | DX: E11.621 Type 2 diabetes mellitus with foot ulcer (principal); L89.893 Pressure ulcer of other site, stage 3; I70.245 Atherosclerosis of native arteries of left leg with ulceration of other part of foot; L97.521 Non-pressure chronic ulcer of other part of left foot limited to breakdown of skin; E11.40 Type 2 diabetes mellitus with diabetic neuropathy, unspecified; E11.51 Type 2 diabetes mellitus with diabetic peripheral angiopathy without gangrene; I10 Essential (primary) hypertension; E66.9 Obesity, unspecified; M81.0 Age-related osteoporosis without current pathological fracture; M19.90 Unspecified osteoarthritis, unspecified site; E78.5 Hyperlipidemia, unspecified; F32.9 Major depressive disorder, single episode, unspecified; F03.90 Unspecified dementia, unspecified severity, without behavioral disturbance, psychotic disturbance, mood disturbance, and anxiety; Z86.73 Personal history of transient ischemic attack (TIA), and cerebral infarction without residual deficits; Z68.26 Body mass index [BMI] 26.0-26.9, adult; Z87.891 Personal history of nicotine dependence; Z90.710 Acquired absence of both cervix and uterus ==

== ENCOUNTER 2017-11-28 04:08 | Inpatient (IN) | payer MEDICARE, MEDICAID ==
[~2017-11-28] VITALS: Ht 160 cm; Wt 63.5 kg
[~2017-11-28 04:08] MED LIST changes: -CARVEDILOL3.125 MG PO; -CATAPRES-TTS 11 EACH TRANSDERM; -HYDROCODON-ACE1 EAC7 PO; -LISINOPRIL5 MG PO; -MELATONIN5 M1 PO; -MYLANTA PO; -NORVASC5 MG PO; -PHENERGAN 25 MG25 M1 PO; -PLAVIX 75 MG TA75 M1 PO; -TYLENOL325 MG PO; -VENELEX OINTMEN60 GM INTRADERM; -ZYVOX600 MG PO
[2017-11-28 14:00] VITALS: BP 176/58
[2017-11-28 16:04] LABS: ABSOLUTE BASOPHILS 0.1 thou/uL (0.0-0.2); ABSOLUTE EOSINOPHILS 0.6 thou/uL (0.0-0.7); ABSOLUTE LYMPHOCYTES 1.7 thou/uL (0.8-5.3); ABSOLUTE MONOCYTES 1.2 thou/uL (0.0-1.2); ABSOLUTE NEUTROPHILS 8.2 thou/uL (1.6-8.1); BASOPHILS 0.5 %; HEMATOCRIT 35.2 % (37.0-47.0); HEMOGLOBIN 11.2 gm/dL (12.0-15.0); LYMPHOCYTES 14.6 %; MCHC 31.9 g/dL (28.0-37.0); MCV 91.2 fL (80.0-100.0); MONOCYTES 10.3 %; MPV 9.4 fl. (7.2-11.1); NUCLEATED RBCS 0 /100WBC; PLATELET COUNT* 194 thou/uL (150-400); POLYS 69.6 %; RBC 3.86 mil/uL (4.20-5.00); RDW-CV 15.3 % (10.5-14.5); WBC 11.8 thou/uL (4.0-11.0)
[2017-11-28 16:12] LABS: CALCIUM 9.1 mg/dL (8.5-10.1); CREATININE 1.6 mg/dL (0.6-1.3); MAGNESIUM 1.8 mg/dL (1.8-2.4); POTASSIUM 5.1 mmol/L (3.5-5.1)
[2017-11-28 16:14] LABS: APTT 27.1 Seconds (25.0-31.3); PROTIME 10.1 Seconds (9.20-11.50)
--- NOTE | 2017-11-28 20:12 | NUR ---
PATIENT ARRIVED FROM WOUND CLINIC AT 1400. PATIENT SETTLED TO ROOM. PATIENT UP WITH MAX ASSIST OF 2 WITH GAIT BELT. PATIENT HAS MULTIPLE PRESSURE WOUNDS TO COCCYX, LEFT BUTTOCK, LEFT FOOT X 3 AND VASCULAR WOUND TO LEFT GREAT TOE AMPUTATION SITE. PATIENT ALSO HAS YEAST TO RIGHT ARMPIT AND UNDER BREAST AND ABDOMINAL FOLDS. PATIENT IS ALERT AND ORIENTED TO SELF AND SITUATION. PATIENT HAS FAIR APPETITE. PATIENT DENIES ANY PAIN. PATIENT DENIES ANY NEEDS AT THIS TIME. BED ALARM ON. WILL CONTINUE TO MONITOR.
[2017-11-28 23:43] VITALS: BP 157/59
--- NOTE | 2017-11-29 05:49 | NUR ---
ASSESSMENT COMPLETE. PT SLEPT THE NIGHT WITHOUT ANY CONCERNS. PT IS ON ROOM AIR WITH [place] SATS. VITALS STABLE. Q2 TURN FOR SKIN INTEGRITY. DRESSINGS IN PLACE. PT DENIES PAIN AND N/V. PT INCONT. SEE ASSESSMENT AND VITALS FOR OTHER DETAILS. CALL LIGHT WITHIN REACH, WILL CONTINUE PLAN OF CARE
[2017-11-29 08:40] VITALS: BP 146/47
--- NOTE | 2017-11-29 12:36 | CON ---
[address] [address] CONSULTATION Name: TARSHA VILLA Room: [address] IN .R.#: [id number] Admission: 11/28/17 Attend Phys: Adrian Ceron MD Discharge: Date of : 31 Report #: [id number] THIS REPORT FOR: //name// CC: Jaswant Lacey DATE OF SERVICE: 11/28/2017 INFECTIOUS DISEASE CONSULTATION ATTENDING PHYSICIAN: Dr. Ceron. REASON FOR EVALUATION: Deep left foot infection in the setting of chronic wound, previous first and second toe transmetatarsal amputations with lack of healing, now complicated by inflammatory eruption, distal left lower extremity. HISTORY OF PRESENT ILLNESS: Chart reviewed, patient examined. 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 She does have peripheral neuropathy as well that has been complicated by recurrent foot-related issues including ulcers. She has had diagnosis of chronic osteomyelitis. She has been followed in the wound care center. It is notable recent culture from the site had growth of oxacillin-resistant Staphylococcus aureus. She was seen in the wound care today, was felt to have worsening signs and symptoms related to her foot. She is quite encephalopathic and somnolent at this point, although her baseline certainly had been altered, probably has had some degree of dementia as well. Cultures have been recollected. She is unable to give any significant additional history. On visualization, she has lost weight since had seen her previously, which would have been early part of September 2017. ALLERGIES: MORPHINE, SULFA, CODEINE, ZINC, MENTHOL. MEDICATIONS: Include cyanocobalamin, mirtazapine, Lactobacillus, famotidine, lisinopril, aspirin, insulin, atorvastatin, memantine, pramipexole, p.r.n. analgesics, antiemetics. As described above, diabetes mellitus with severe complications, primarily vasculopathy, also peripheral neuropathy, previous amputation of left first and second toe. History of osteoporosis, psoriasis, dementia and probable depression, previous stroke on 2 occasions, has had previous vascular stenting of his left lower extremity. SOCIAL HISTORY: Former smoker. No ethanol. FAMILY HISTORY: [place] [address] CONSULTATION Name: TARSHA VILLA Room: [address] IN [facility]#: [id number] Admission: 11/28/17 Attend Phys: Adrian Ceron MD Discharge: Date of : 31 Report #: [id number] REVIEW OF SYSTEMS: Not reliably obtained. PHYSICAL EXAMINATION: GENERAL: She is quite somnolent. She does arouse, ____ opens her eyes. There is really no significant effort to verbalize. She does appear chronically ill, undernourished. She is in mild to moderate distress. VITAL SIGNS: Pending. Weight 140 pounds. SKIN: Warm. She does have inflammatory rash involving the distal aspect of the left lower extremity, particularly the foot extending partially under the distal leg as well. There are no bullous lesions. HEENT: Nasal cannula oxygen in place. NECK: Supple. LUNGS: Diminished breath sounds. Few scattered coarse sounds at the bases. HEART: Regular. There is a soft systolic murmur. ABDOMEN: Soft. EXTREMITIES: There are no apparent peritoneal signs. GENITOURINARY: Deferred. RECTAL: Deferred. LABORATORY DATA: PT of 10.1, INR of 1.0. Electrolytes: Sodium 138, potassium 5.1, chloride 106, bicarbonate 26, BUN and creatinine 33 and 1.6, glucose 299. Estimated GFR of 31. CBC: White count of 11.8, H and H 11.2 and 35.2 and platelets of 194. ASSESSMENT AND PLAN: Chronic ulceration involving the left distal lower extremity and a compromised limb to previous vascular procedures. Based on the previous culture from last couple of weeks, we will initiate therapy with vancomycin, await his most recent cultures. Vascular Surgery has been evaluating. Given the fact she is nonambulatory, it would be unreasonable to think about more definitive treatments. She clearly is undernourished. Diabetes is not particularly well-controlled. Thank you. We will follow. <ELECTRONICALLY SIGNED> By: Jim Chen MD 11/29/17 1236 1654 [id number] Chen MD /nt
--- NOTE | 2017-11-29 14:59 | NUR ---
WOUND CARE NOTE: CONSULT RECEIVED FOR CELLULITIS LEFT FOOT. PATIENT KNOWN TO ME FROM PREVIOUS HOSPITAL STAY. PRESENTS WITH A FULL THICKNESS ULCERATION TO THE LEFT FOOT WHERE AN INCISION SITE HAD BEEN. ULCERATION MEASURES 2X1X1. YELLOW, MOIST, ADHERENT SLOUGH TO 100% OF WOUND BED. MICHELE-WOUND WITH ERYTHEMA. FOOT IS COOL TO TOUCH. CLEANSED WOUND WITH WOUND CLEANSER, PATTED DRY. APPLIED AQUACEL AG TO WOUND BED AND COVERED WITH ABD. SECURED WITH KERLIX. DRY, STABLE ESCHAR TO THE 3RD TOE ON THE LEFT FOOT, DORSAL ASPECT. AREA MEASURES 0.8X0.5. NO DRAINAGE, FLUCTUANCE OR INDURATION NOTED. CLEANSED WITH WOUND CLEANSER, PATTED DRY. APPLIED BETADINE. DRY, STABLE ESCHAR TO THE DORSAL ASPECT OF THE LEFT FOOT. AREA MEASURES 1X1. NO DRAINAGE, FLUCTUANCE OR INDURATION NOTED. CLEANSED WITH WOUND CLEANSER, PATTED DRY. APPLIED BETADINE. LEFT ISCHIAL TUBEROSITY: STAGE 3 PRESSURE ULCER MEASURING 0.7X1.1X.0.1. MOIST, RED, YELLOW WOUND BED. MICHELE-WOUND MACERATED. CLEANSED WITH WOUND CLEANSER, PATTED DRY. SKIN PREPPED. APPLIED OPTIFOAM AG AND SECURED WITH A SURESITE. PATIENT TOLERATED DRESSING CHANGES WELL. EDUCATED PATIENT ON DRESSING SELECTION AND THE NEED TO KEEP OFF OF THE WOUND TO HER BOTTOM. COMMUNICATED UNDERSTANDING. RECOMMEND TURN Q2 HOURS-KEEP OFF WOUND MARE MATTRESS-ORDERED ENCOURAGE GOOD NUTRITION AND HYDRATION TIGHT BLOOD GLUCOSE CONTROL
[2017-11-29 16:36] VITALS: BP 155/47
--- NOTE | 2017-11-29 17:00 | NUR ---
Pt unavailable to meet with SW at this time. Pt lives at [facility] at level. SW to continue to follow to complete assessment and to follow to assist with safe dc planning.
--- NOTE | 2017-11-29 20:07 | NUR ---
PATIENT RESTING IN BED. PATIENT HAS BEEN TURNED WHILE IN BED. PATIENT SEEN BY WOUND NURSE THIS AM. PATIENT PLACED ON LOW AIRLOSS MATTRESS THIS AFTERNOON AND HEEL PROTECTION BOOTS APPLIED. PATIENT SEEN BY VASCULAR DOCTOR AND IS SCHEDULED FOR ANGIOPLASTY IN AM, DPOA AWARE AND CONSENT SIGNED. PATIENT DENIES ANY PAIN. PATIENT DENIES ANY NEEDS AT THIS TIME. WILL CONTINUE TO MONITOR.
[2017-11-30] VITALS (13 sets, daily range): BP systolic 144–204; BP diastolic 49–73
--- NOTE | 2017-11-30 05:57 | NUR ---
ASSESSMENT COMPLETE. PT HAD NO CONCERNS DURING THE NIGHT. PT HAS BEEN NPO SINCE MIDNIGHT FOR ANGIOGRAM WITH DR JORDAN TODAY. PT DENIES PAIN AND N/V. DRESSINGS TO WOUNDS INTACT, BLE BOOTS IN PLACE. PT Q2 TURN FOR SKIN INTEGRITY. PT HAS LOW AIRLOSS MATTRESS. SEE ASSESSMENT AND VITALS FOR OTHER DETAILS. CALL LIGHT WITHIN REACH, WILL CONTINUE PLAN OF CARE.
--- NOTE | 2017-11-30 15:20 | NUR ---
Nutrition: Pt admitted with Lt foot wound. NPO for angioplasty. Was eating 90%. H/o CHF, DM, PVD. Physician indicated Moderate PCM - defer DX. BG is 299. No albumin recorded. Wt: 140#. RX: insulin, pt now on MVI. Increased nutrient needs R/T wound healing AEB chronic wound. RD WILL ORDER BENNIE (ARGINAID) FOR WOUND HEALING. Mild risk.
--- NOTE | 2017-11-30 16:38 | NUR ---
PATIENT NPO THIS AM FOR ANGIOGRAM THIS AFTERNOON. VITALS CHARTED, DR. GREEN NOTIFIED OF HYPERTENSION AND ORDERS RECEIVED. IVF INFUSING ORDERED BY DR. JORDAN. RIGHT GROIN SITE C/D/I, PULSE NOTED WITH DOPPLER TO RIGHT FOOT. TURNED Q2. INCONTINENT OF URINE MULTIPLE TIMES. PODUS BOOTS MAUREEN IN PLACE. NO COMPLAINTS OF PAIN.
--- NOTE | 2017-11-30 19:01 | NUR ---
DR. GUERRIER NOTIFIED OF CONT ELEVATED BP, ORDERS RECEIVED FOR CLONIDINE PATCH
[2017-12-01] VITALS: BP 126/42
[2017-12-01 04:44] LABS: HEMATOCRIT 34.5 % (37.0-47.0); HEMOGLOBIN 11.1 gm/dL (12.0-15.0); MCHC 32.2 g/dL (28.0-37.0); MCV 90.1 fL (80.0-100.0); MPV 9.2 fl. (7.2-11.1); RBC 3.83 mil/uL (4.20-5.00); RDW-CV 15.3 % (10.5-14.5); WBC 10.5 thou/uL (4.0-11.0)
[2017-12-01 06:55] LABS: CALCIUM 8.7 mg/dL (8.5-10.1); CREATININE 1.6 mg/dL (0.6-1.3); POTASSIUM 4.6 mmol/L (3.5-5.1)
--- NOTE | 2017-12-01 07:38 | NUR ---
PATIENT SLEPT MOST OF THE NIGHT. IV REMAINS SALINE LOCKED. IV VANC WAS GIVEN ORDERED. BLOOD PRESSURE CAME DOWN WITH ORDERED MEDS. DRESSING TO RIGHT GROIN SITE DOES HAVE SOME DRAINAGE. PATIENT WAS TURNED EVERY TWO HOURS. WILL CONTINUE TO MONITOR.
[2017-12-01 08:00] VITALS: BP 145/43
[2017-12-01 16:00] VITALS: BP 108/72
--- NOTE | 2017-12-01 17:15 | NUR ---
PATIENT RESTING IN BED. PATIENT DENIES ANY PAIN. PATIENT HAS GOOD APPETITE. PATIENT HAS SLEPT MOST OF DAY, WAKING FOR MEALS. PATIENT DOES EAT INDEPENDENTLY AFTER SETUP. PATIENT HAS BEEN REPOSITIONED IN BED. DR REEVES CHANGED DRESSING TO FOOT THIS AM. PATIENT DENIES ANY NEEDS AT THIS TIME. BED ALARM ON. CALL LIGHT WITHIN REACH. WILL CONTINUE TO MONITOR.
[2017-12-02] VITALS: BP 105/40
[2017-12-02 07:40] VITALS: BP 144/45
--- NOTE | 2017-12-02 07:53 | NUR ---
PATIENT SLEPT MOST OF THE NIGHT. IV REMAINS SALINE LOCKED. PATIENT WAS TURNED ABOUT EVERY TWO HOURS. DRESSINGS REMAIN TO LEFT FOOT WOUND WITH PODUS BOOTS BILATERALLY. WILL CONTINUE TO MONITOR.
[2017-12-02 16:52] VITALS: BP 148/44
--- NOTE | 2017-12-02 20:09 | NUR ---
PATIENT RESTING IN BED. PATIENT DENIES ANY PAIN. PATIENT HAS GOOD APPETITE. PATIENT REPOSITIONED WHILE IN BED AND IS ON LOW-AIRLOSS MATTRESS. WOUND CARE BY PHYSICIAN THIS AM. PRODUS BOOTS ON. PATIENT DENIES ANY NEEDS AT THIS TIME. CALL LIGHT WITHIN REACH. BED ALARM ON. WILL CONTINUE TO MONITOR.
[2017-12-03 00:28] VITALS: BP 139/45
[2017-12-03 04:33] LABS: HEMATOCRIT 32.4 % (37.0-47.0); HEMOGLOBIN 10.5 gm/dL (12.0-15.0); MCH 28.9 pg (26.0-34.0); MCHC 32.2 g/dL (28.0-37.0); MCV 89.7 fL (80.0-100.0); MPV 9.4 fl. (7.2-11.1); RBC 3.61 mil/uL (4.20-5.00); RDW-CV 14.7 % (10.5-14.5); WBC 13.1 thou/uL (4.0-11.0)
[2017-12-03 04:58] LABS: CREATININE 1.7 mg/dL (0.6-1.3); POTASSIUM 4.7 mmol/L (3.5-5.1)
--- NOTE | 2017-12-03 06:25 | NUR ---
PT SLEPT WELL OVERNIGHT, AWAKENS WITH CARES. AO TO SELF. DENIES PAIN. INCONTINENT URINE, PERICARE GIVEN AND BARRIER CREAM APPLIED TO BUTTOCKS. TURNED AND REPOSITIONED Q2 HOURS AND PRN FOR SKIN CARE AND COMFORT. PODUS BOOTS ON BLE. DRSG CDI TO LLE. R GROIN DRESSING CHANGED. HS ACCUCHECK 225, LANTUS GIVEN. AM LABS DRAWN. NYSTATING POWDER APPLIED TO YEAST IN FOLDS. RFA SL. DNR. ON LOW AIR LOSS BED. BUTTOCK WOUNDS.TAKES PILLS WHOLE WITH APPLESAUCE.
[2017-12-03 07:45] VITALS: BP 145/50
[2017-12-03 13:50] VITALS: BP 145/50
[2017-12-03] MEDS ORDERED: TYLENOL325 MG PO (14:35)
[2017-12-03] MEDS ORDERED: ZYVOX600 MG PO (14:35)
[2017-12-03] MEDS ORDERED: PHENERGAN 25 MG25 M1 PO (14:37)
[2017-12-03] MEDS ORDERED: PLAVIX 75 MG TA75 M1 PO (14:38)
[2017-12-03] MEDS ORDERED: LISINOPRIL5 MG PO (14:38)
[2017-12-03] MEDS ORDERED: MELATONIN5 M1 PO (14:39)
[2017-12-03] MEDS ORDERED: MILK OF MA2400 MG/10 PO (14:40)
[2017-12-03] MEDS ORDERED: MYLANTA PO (14:42)
[2017-12-03] MEDS ORDERED: NORVASC5 MG PO (14:42)
[2017-12-03] MEDS ORDERED: BENADRYL25 MG PO (14:44)
[2017-12-03] MEDS ORDERED: FLORANEX TABLE1 EACH PO (14:46)
[2017-12-03] MEDS ORDERED: CATAPRES-TTS 11 EACH TRANSDERM (14:50)
--- NOTE | 2017-12-03 15:17 | NUR ---
CM WAS INFORMED THAT D/C ORDERS HAD BEEN WRITTEN FOR THE PATIENT. CM SPOKE TO SID AT [facility] TO INFORM OF THE DISCHARGE AND FAXED PATIENT'S D/C ORDERS. [facility] INFORMS THAT [facility] WILL PROVIDE TRANSPORT AT 1530. CM SPOKE TO THE PATIENT AND STEVE ([facility]) TO INFORM OF THE PATIENT'S DISCHARGE AND TIME OF TRANSPORT. BOTH ARE IN AGREEMENT. CM WILL REMAIN AVAILABLE TO ASSIST AND FOLLOW NEEDED.
--- NOTE | 2017-12-03 15:45 | NUR ---
PATIENT DISCHARGE TO [facility]. REPORT CALLED. COPY OF CHART AND DISCHARGE PAPERS SENT WITH TRANSPORTER. BELONGINGS PACKED. IV REMOVED. UNABLE TO OBTAIN DISCHARGE PHOTOS DUE TO EARLY PICK-UP. PATIENT ASSISTED TO OWN WHEELCHAIR. LEFT BY WHEELCHAIR VAN AT THIS TIME.
--- NOTE | 2017-12-05 12:58 | CON ---
[address] [address] CONSULTATION Name: TARSHA VILLA Room: [address] IN ..#: [id number] Admission: 11/28/17 Attend Phys: Adrian Ceron MD Discharge: 12/03/17 Date of : 32 Report #: [id number] THIS REPORT FOR: //name// CC: Jaswant Lacey DATE OF SERVICE: 12/02/2017 CHIEF COMPLAINT: Followup for postoperative wound to left distal partial first ray resection with recent angioplasty for left lower extremity stenosis. She is resting comfortably, stable vitals, on parenteral vancomycin. On admission, wound cultures growing Staphylococcus aureus. No new labs for review. PHYSICAL EXAMINATION: Decreased inflammation of the foot with no vidhya cellulitis. The wound has a yellow-brown fibronecrotic eschar, which is softer today. There is no fluctuance, crepitation or signs of deep infection. No pallor, cyanosis or signs of acute vascular embarrassment. The foot is significantly warmer than prior to the angioplasty. IMPRESSION: Postoperative wound, peripheral artery disease, status post angioplasty, Methicillin-resistant Staphylococcus aureus cellulitis. PLAN: Excisional ulcer debridement with scissors and forceps to excise subcutaneous tissue and fibrotic tissue from the wound bed. Scant bleeding was achieved. There was some red granulation underlying the wound bed. No exposed bone or tendon. It was cleansed, dried, and dressed with Aquacel Ag and covered with foam and Kerlix gauze and PRAFO boot. We will follow the patient during her hospitalization. <ELECTRONICALLY SIGNED> By: Jaswant Aguirre DPM 12/05/17 1258 1223 0057Jaswant Aguirre DPM /nt
--- NOTE | 2017-12-05 12:58 | CON ---
[address] [address] CONSULTATION Name: TARSHA VILLA Room: [address] IN ..#: [id number] Admission: 11/28/17 Attend Phys: Adrian Ceron MD Discharge: 12/03/17 Date of : 31 Report #: [id number] THIS REPORT FOR: //name// CC: Jaswant Lacey DATE OF SERVICE: 11/29/2017 CHIEF COMPLAINT: Admission yesterday for worsening cellulitis to the left foot with postoperative wound complicated by type 2 diabetes mellitus with PAD. HISTORY OF PRESENT ILLNESS: Prior wound culture grew MRSA, she is on parenteral vancomycin per ID. She had arterial Doppler, the report is not available for review. I reviewed her admission x-ray, which was negative for osteomyelitis and showed clean resection sites at the proximal first and second metatarsals. There is no gas or signs of abscess to the soft tissue. The wound nurse changed her bandage today. The patient relates mild pain to the area with direct palpation. She has been afebrile with stable vitals. She previously had left SFA and popliteal angioplasty with stenting performed by Dr. Rossi earlier this year. LABORATORY DATA: WBC 11.8, RBC 3.86, hemoglobin 11.2, hematocrit 35.2, platelets 194. BUN 33, creatinine 1.6, glucose 299. PHYSICAL EXAMINATION: The foot is bandaged with no bleed through. I spoke with the wound nurse and she said the wound had some pale yellowish slough with no active bleeding. She has dopplerable pedal pulses bilaterally. 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 Peripheral artery disease, type 2 diabetes mellitus. PLAN: I do not recommend surgical intervention at this point as there are no signs of deep tissue infection, abscess or osteomyelitis. I will perform a bedside wound debridement tomorrow to remove the slough from the wound bed. Supportive, localized wound care recommended. <ELECTRONICALLY SIGNED> By: Jaswant Aguirre DPM 12/05/17 1258 1134 [id number] Aguirre DPM /nt
--- NOTE | 2017-12-05 12:58 | CON ---
[address] [address] CONSULTATION Name: TARSHA VILLA Room: [address]#: [id number] Admission: 11/28/17 Attend Phys: Adrian Ceron MD Discharge: 12/03/17 Date of : 31 Report #: [id number] THIS REPORT FOR: //name// CC: Jaswant Lacey DATE OF SERVICE: 12/01/2017 REASON FOR CONSULTATION: Followup of postoperative wound to the left distal partial first ray resection site. HISTORY OF PRESENT ILLNESS: She is status post angioplasty of stenosis to the left distal SFA/popliteal segment. She is on parenteral vancomycin with good tolerance. Outpatient surgical cultures grew MRSA. She denies left foot pain, she is resting comfortably in a PRAFO boot on an air flow control mattress. She has been afebrile with no constitutional symptoms. LABORATORY DATA: WBC 10.5, RBC 3.83, hemoglobin 11.1, hematocrit 34.5, platelets 234. BUN 34, creatinine 1.6, glucose 96. PHYSICAL EXAMINATION: The left foot is significantly warmer than prior to admission. The distal wound is stable with a brown-yellow fibrotic base. Minimal inflammation with no vidhya cellulitis. No pallor, cyanosis or signs of acute vascular embarrassment. No tenderness to the periwound site. IMPRESSION: Postoperative left foot wound, status post angioplasty, left distal SFA /popliteal trunk, type 2 diabetes mellitus with peripheral artery disease. PLAN: Performed some debridement and performed excisional ulcer debridement to the wound with scalpel and pickups to remove some subcutaneous fibrotic tissue from the wound bed. Scant bleeding stopped with pressure. The wound was cleansed and dressed with Aquacel Ag, moistened with saline, covered with ABDs, Kerlix gauze and fitted for the PRAFO boot for offloading. I will follow her daily during her hospitalization. <ELECTRONICALLY SIGNED> By: Jaswant Aguirre DPM 12/05/17 1258 1118 0021Ddesiree Aguirre DPM /nt
--- NOTE | 2017-12-07 17:33 | OP ---
[address] [address] OPERATIVE REPORT Name: TARSHA VILLA Room: [address]#: [id number] Admission: 11/28/17 Attend Phys: Adrian Ceron MD Discharge: 12/03/17 Date of : 31 Report #: [id number] THIS REPORT FOR: //name// CC: Jaswant Lacey DATE OF SERVICE: 11/30/2017 PREOPERATIVE DIAGNOSIS: Peripheral vascular disease with ulcer, left lower extremity. POSTOPERATIVE DIAGNOSIS: Peripheral vascular disease with ulcer, left lower extremity. SURGEON: Miller Rossi DO VETERANS' COORDINATOR: None. PROCEDURES: 1. Ultrasound-guided access, right common femoral artery. 2. Aortogram. 3. Left lower extremity angiogram catheter position third order. 4. Angioplasty and stent to the left popliteal and superficial femoral artery with [place] Viabahn 5 mm x 150 covered stent graft and angioplasty with Ultraverse 5 mm x 100 angioplasty balloon. 6. Limited angiogram, right common femoral artery. 7. Angio-Seal closure, right common femoral artery, 8-Congolese. ESTIMATED BLOOD LOSS: 20 mL. SPECIMEN: None. COMPLICATIONS: None. CONDITION: Stable. DISPOSITION: To floor. INDICATIONS FOR THE PROCEDURE AND CONSENT: The patient is an 86-year-old female with peripheral vascular disease and ulcers of her left lower extremity. She underwent a recent SFA and popliteal angioplasty and stenting. She has had prolonged healing times and underwent a repeat arterial duplex, which demonstrated concern for recurrent stenosis in her SFA stent. Recommendation for diagnostic angiogram with possible intervention was made due to her mild renal insufficiency to avoid unnecessary contrast. Risks and benefits were [facility] [address] [place] [address] OPERATIVE REPORT Name: ALLENTARSHA C Room: [address] IN [facility].#: [id number] Admission: 11/28/17 Attend Phys: Adrian Ceron MD Discharge: 12/03/17 Date of : 31 Report #: [id number] discussed. The patient was consented and scheduled. PROCEDURE IN DETAIL: After timeout was performed, the patient was placed in supine position with sterile prep and drape of the anterior abdomen, bilateral groins, bilateral thighs. Ultrasound was utilized to identify the right common femoral artery and Seldinger technique used to place a 5-Congolese micropuncture sheath. Limited angiogram was then performed and confirmed access point within the femoral vessel. Aortogram was performed, which redemonstrated the aorta, bilateral common, internal and external iliac arteries to be widely patent without flow limitation or stenosis. I then advanced a Glidewire Advantage and UF catheter to the left external iliac artery and performed a left lower extremity angiogram. Left lower extremity angiogram demonstrated widely patent common femoral and proximal superficial femoral artery stenting and profunda vessel, but distal SFA and popliteal artery stent had irregularity and restenosis greater than 70%. Distal to the stent, there was a irregularity of the popliteal vessel. The anterior tibial artery appeared to have a high takeoff. The peroneal vessel remains the primary outflow to her foot. I then systemically heparinized the patient with 6000 units of heparin with intention to treat. I then reviewed the Viabahn stenting options available to me and opted for an 0.035 system as there was not an 0.018 system available. I then exchanged for the Amplatz Super Stiff wire and exchanged for a 7-Congolese up and over sheath. Unfortunately, I was unable to track the Amplatz wire beyond the distal stent end point and therefore obtained a seeker catheter and exchanged for a regular 0.035 Glidewire. This was able to track into the peroneal vessel without difficulty and completion imaging demonstrated true luminal position. I then exchanged for the 0.035 [place] Viabahn, which would not track past the severe stenosis within the distal SFA. I removed it and re-exchanged for a 5 mm Ultraverse balloon and it was able to angioplasty the distal popliteal vessel as well as within the stent. The Viabahn was then tracked over a wire and under fluoroscopic guidance, I deployed this above the large collateral or anterior tibial vessel that was noted. This was then postdilated with the same 5 mm balloon. Repeat imaging demonstrated excellent radiographic result with similar irregularity below the stent. I opted to leave untreated as I did not wish to cover the only collateral she has. This did not appear to be a flow limiting dissection. I then retracted the 7-Congolese sheath into the right external iliac artery and obtained a 8-Congolese Angio-Seal and deployed in standard fashion. Pressure was [facility] [address] [place] [address] OPERATIVE REPORT Name: TARSHA VILLA Room: [address] IN M.R.#: [id number] Admission: 11/28/17 Attend Phys: Adrian Ceron MD Discharge: 12/03/17 Date of : 31 Report #: [id number] held for hemostasis. The patient tolerated the procedure well. Lap, needle and instrument counts correct. <ELECTRONICALLY SIGNED> By: Miller Rossi DO 12/07/17 1733 1414 [id number] Rossi DO /nt
[2018-03-06] MEDS ORDERED: BENADRYL25 MG PO (11:01)
== END 2017-12-03 15:45 | DRG 856 ==
LOC: M.WC 04:08 → M.3W 13:44
PROVIDERS: Family Medicine; Surgery; ADMIT Internal Medicine
DX: T81.4XXA Infection following a procedure, initial encounter (principal); L89.323 Pressure ulcer of left buttock, stage 3; E44.0 Moderate protein-calorie malnutrition; I13.0 Hypertensive heart and chronic kidney disease with heart failure and stage 1 through stage 4 chronic kidney disease, or unspecified chronic kidney disease; I50.22 Chronic systolic (congestive) heart failure; T82.856A Stenosis of peripheral vascular stent, initial encounter; L03.116 Cellulitis of left lower limb; E11.51 Type 2 diabetes mellitus with diabetic peripheral angiopathy without gangrene; L08.9 Local infection of the skin and subcutaneous tissue, unspecified; Y83.5 Amputation of limb(s) as the cause of abnormal reaction of the patient, or of later complication, without mention of misadventure at the time of the procedure; N18.3 Chronic kidney disease, stage 3 (moderate); E11.22 Type 2 diabetes mellitus with diabetic chronic kidney disease; I05.2 Rheumatic mitral stenosis with insufficiency; M48.00 Spinal stenosis, site unspecified; I35.0 Nonrheumatic aortic (valve) stenosis; I50.84 End stage heart failure; Z66 Do not resuscitate; F32.9 Major depressive disorder, single episode, unspecified; G89.29 Other chronic pain; E78.5 Hyperlipidemia, unspecified; F03.90 Unspecified dementia, unspecified severity, without behavioral disturbance, psychotic disturbance, mood disturbance, and anxiety; B95.61 Methicillin susceptible Staphylococcus aureus infection as the cause of diseases classified elsewhere; E66.9 Obesity, unspecified; L97.529 Non-pressure chronic ulcer of other part of left foot with unspecified severity; G25.81 Restless legs syndrome; M19.90 Unspecified osteoarthritis, unspecified site; M81.0 Age-related osteoporosis without current pathological fracture; Y83.8 Other surgical procedures as the cause of abnormal reaction of the patient, or of later complication, without mention of misadventure at the time of the procedure; Z79.4 Long term (current) use of insulin; Y92.89 Other specified places as the place of occurrence of the external cause; Z68.24 Body mass index [BMI] 24.0-24.9, adult; Z89.422 Acquired absence of other left toe(s); Z88.6 Allergy status to analgesic agent; Z88.2 Allergy status to sulfonamides; Z88.8 Allergy status to other drugs, medicaments and biological substances; Z79.2 Long term (current) use of antibiotics; Z79.82 Long term (current) use of aspirin; Z79.899 Other long term (current) drug therapy; Z90.710 Acquired absence of both cervix and uterus; Z86.73 Personal history of transient ischemic attack (TIA), and cerebral infarction without residual deficits; Z95.820 Peripheral vascular angioplasty status with implants and grafts; Z87.891 Personal history of nicotine dependence

== ENCOUNTER → 2017-12-05 | Outpatient (CLI) | payer MEDICARE, MEDICAID ==
[~2017-12-05] MED LIST changes: +CARVEDILOL3.125 MG PO; +CATAPRES-TTS 11 EACH TRANSDERM; +HYDROCODON-ACE1 EAC7 PO; +LISINOPRIL5 MG PO; +MELATONIN5 M1 PO; +MYLANTA PO; +NORVASC5 MG PO; +PHENERGAN 25 MG25 M1 PO; +PLAVIX 75 MG TA75 M1 PO; +TYLENOL325 MG PO; +VENELEX OINTMEN60 GM INTRADERM; +ZYVOX600 MG PO
== END ==
LOC: M.WC 03:23
DX: T87.44 Infection of amputation stump, left lower extremity (principal); E11.621 Type 2 diabetes mellitus with foot ulcer; L97.521 Non-pressure chronic ulcer of other part of left foot limited to breakdown of skin; L89.893 Pressure ulcer of other site, stage 3; I70.245 Atherosclerosis of native arteries of left leg with ulceration of other part of foot; E11.51 Type 2 diabetes mellitus with diabetic peripheral angiopathy without gangrene; E11.40 Type 2 diabetes mellitus with diabetic neuropathy, unspecified; E11.69 Type 2 diabetes mellitus with other specified complication; M86.8X7 Other osteomyelitis, ankle and foot; I10 Essential (primary) hypertension; M19.90 Unspecified osteoarthritis, unspecified site; M81.0 Age-related osteoporosis without current pathological fracture; E66.9 Obesity, unspecified; E78.5 Hyperlipidemia, unspecified; L40.9 Psoriasis, unspecified; F32.9 Major depressive disorder, single episode, unspecified; F03.90 Unspecified dementia, unspecified severity, without behavioral disturbance, psychotic disturbance, mood disturbance, and anxiety; Z68.26 Body mass index [BMI] 26.0-26.9, adult; Z86.73 Personal history of transient ischemic attack (TIA), and cerebral infarction without residual deficits; Z87.891 Personal history of nicotine dependence; Y83.5 Amputation of limb(s) as the cause of abnormal reaction of the patient, or of later complication, without mention of misadventure at the time of the procedure

== ENCOUNTER → 2017-12-12 | Outpatient (CLI) | payer MEDICARE, MEDICAID ==
--- NOTE | 2017-12-13 13:21 | CON ---
[address] [address] CONSULTATION Name: TRASHA VILLA Room: [facility].#: [id number] Admission: 12/12/17 Attend Phys: Jaswant Aguirre DPM Discharge: Date of : 31 Report #: [id number] THIS REPORT FOR: //name// CC: Jaswant Lacey DATE OF SERVICE: 12/12/2017 ATTENDING PHYSICIAN: Dr. Jaswant Aguirre. HISTORY OF PRESENT ILLNESS: Here for followup left foot chronic ulceration from previous toe amputation. The patient was recently hospitalized due to worsening status of her distal left lower extremity and there is a component of vascular insufficiency that was ideally improved upon. The wound overall appears better, although it is still somewhat bland. There is no significant associated inflammation. She denies significant pain, although she does have a marked degree of peripheral neuropathy. Per caregivers not had significant toxicity or illness since discharge. She has been on linezolid. ASSESSMENT AND PLAN: Chronic left foot ulceration. At this point, would discontinue the antibiotics. I do not think there is an active infection going on. Again, continue wound care per Dr. Aguirre. Try to optimize her nutritional status. I do not think at this point she is ambulatory, which would help with offloading as well. We will see her back as needed. <ELECTRONICALLY SIGNED> By: Jim Chen MD 12/13/17 1321 0914 [id number] Chen MD /derian
== END ==
LOC: M.WC 01:36
DX: E11.621 Type 2 diabetes mellitus with foot ulcer (principal); L97.521 Non-pressure chronic ulcer of other part of left foot limited to breakdown of skin; L89.893 Pressure ulcer of other site, stage 3; I70.245 Atherosclerosis of native arteries of left leg with ulceration of other part of foot; E11.51 Type 2 diabetes mellitus with diabetic peripheral angiopathy without gangrene; E11.40 Type 2 diabetes mellitus with diabetic neuropathy, unspecified; E11.69 Type 2 diabetes mellitus with other specified complication; M86.8X7 Other osteomyelitis, ankle and foot; E66.9 Obesity, unspecified; E78.5 Hyperlipidemia, unspecified; I10 Essential (primary) hypertension; L40.9 Psoriasis, unspecified; M19.90 Unspecified osteoarthritis, unspecified site; M81.0 Age-related osteoporosis without current pathological fracture; F32.9 Major depressive disorder, single episode, unspecified; F03.90 Unspecified dementia, unspecified severity, without behavioral disturbance, psychotic disturbance, mood disturbance, and anxiety; Z68.26 Body mass index [BMI] 26.0-26.9, adult; Z87.891 Personal history of nicotine dependence; Z89.412 Acquired absence of left great toe

== ENCOUNTER → 2017-12-19 | Outpatient (CLI) | payer MEDICARE, MEDICAID | LOC: M.WC 04:35 | DX: E11.621 Type 2 diabetes mellitus with foot ulcer (principal); I70.245 Atherosclerosis of native arteries of left leg with ulceration of other part of foot; L97.521 Non-pressure chronic ulcer of other part of left foot limited to breakdown of skin; L89.893 Pressure ulcer of other site, stage 3; E11.51 Type 2 diabetes mellitus with diabetic peripheral angiopathy without gangrene; E11.40 Type 2 diabetes mellitus with diabetic neuropathy, unspecified; I10 Essential (primary) hypertension; E66.9 Obesity, unspecified; M19.90 Unspecified osteoarthritis, unspecified site; M81.0 Age-related osteoporosis without current pathological fracture; E78.5 Hyperlipidemia, unspecified; F32.9 Major depressive disorder, single episode, unspecified; F03.90 Unspecified dementia, unspecified severity, without behavioral disturbance, psychotic disturbance, mood disturbance, and anxiety; Z86.73 Personal history of transient ischemic attack (TIA), and cerebral infarction without residual deficits; Z68.26 Body mass index [BMI] 26.0-26.9, adult; Z87.891 Personal history of nicotine dependence ==

== ENCOUNTER → 2017-12-26 | Outpatient (CLI) | payer MEDICARE, MEDICAID | LOC: M.WC 04:51 | DX: E11.621 Type 2 diabetes mellitus with foot ulcer (principal); I70.245 Atherosclerosis of native arteries of left leg with ulceration of other part of foot; L89.893 Pressure ulcer of other site, stage 3; L97.521 Non-pressure chronic ulcer of other part of left foot limited to breakdown of skin; E11.40 Type 2 diabetes mellitus with diabetic neuropathy, unspecified; E11.51 Type 2 diabetes mellitus with diabetic peripheral angiopathy without gangrene; I10 Essential (primary) hypertension; M19.90 Unspecified osteoarthritis, unspecified site; E78.5 Hyperlipidemia, unspecified; E66.9 Obesity, unspecified; M81.0 Age-related osteoporosis without current pathological fracture; F03.90 Unspecified dementia, unspecified severity, without behavioral disturbance, psychotic disturbance, mood disturbance, and anxiety; F32.9 Major depressive disorder, single episode, unspecified; Z86.73 Personal history of transient ischemic attack (TIA), and cerebral infarction without residual deficits; Z87.891 Personal history of nicotine dependence; Z68.26 Body mass index [BMI] 26.0-26.9, adult ==

== ENCOUNTER → 2018-01-16 | Outpatient (CLI) | payer MEDICARE, MEDICAID | LOC: M.WC 01-09 05:19 | DX: T87.89 Other complications of amputation stump (principal); E11.621 Type 2 diabetes mellitus with foot ulcer; L97.521 Non-pressure chronic ulcer of other part of left foot limited to breakdown of skin; I70.245 Atherosclerosis of native arteries of left leg with ulceration of other part of foot; L89.893 Pressure ulcer of other site, stage 3; E11.51 Type 2 diabetes mellitus with diabetic peripheral angiopathy without gangrene; E11.69 Type 2 diabetes mellitus with other specified complication; M86.8X8 Other osteomyelitis, other site; E11.40 Type 2 diabetes mellitus with diabetic neuropathy, unspecified; E66.9 Obesity, unspecified; E78.5 Hyperlipidemia, unspecified; I10 Essential (primary) hypertension; M19.90 Unspecified osteoarthritis, unspecified site; M81.0 Age-related osteoporosis without current pathological fracture; F32.9 Major depressive disorder, single episode, unspecified; F03.90 Unspecified dementia, unspecified severity, without behavioral disturbance, psychotic disturbance, mood disturbance, and anxiety; Z86.73 Personal history of transient ischemic attack (TIA), and cerebral infarction without residual deficits; Z87.891 Personal history of nicotine dependence; Z68.26 Body mass index [BMI] 26.0-26.9, adult; Y83.5 Amputation of limb(s) as the cause of abnormal reaction of the patient, or of later complication, without mention of misadventure at the time of the procedure ==

== ENCOUNTER 2018-01-27 14:10 | Emergency (ER) | payer MEDICARE, MEDICAID ==
[~2018-01-27] VITALS: Ht 167.6 cm; Wt 59.0 kg
[~2018-01-27 14:10] MED LIST changes: -CARVEDILOL3.125 MG PO; -HYDROCODON-ACE1 EAC7 PO; -VENELEX OINTMEN60 GM INTRADERM
[2018-01-27] MEDS ORDERED: THEREMS-M1 EACH PO (14:25)
[2018-01-27] MEDS ORDERED: VENELEX OINTMEN60 GM INTRADERM (14:26)
[2018-01-27] MEDS ORDERED: HYDROCODON-ACE1 EAC7 PO (14:27)
[2018-01-27] MEDS ORDERED: CARVEDILOL3.125 MG PO (14:29)
[2018-01-27 16:40] VITALS: BP 182/56
[2018-03-06] MEDS ORDERED: BENADRYL25 MG PO (11:01)
== END 2018-01-27 16:45 | disposition home or self-care (01) ==
LOC: M.ERS 14:10
DX: S09.8XXA Other specified injuries of head, initial encounter (principal); E11.9 Type 2 diabetes mellitus without complications; Z90.710 Acquired absence of both cervix and uterus; I10 Essential (primary) hypertension; M19.90 Unspecified osteoarthritis, unspecified site; F32.9 Major depressive disorder, single episode, unspecified; F03.90 Unspecified dementia, unspecified severity, without behavioral disturbance, psychotic disturbance, mood disturbance, and anxiety; E78.5 Hyperlipidemia, unspecified; E66.9 Obesity, unspecified; Z68.21 Body mass index [BMI] 21.0-21.9, adult; G89.29 Other chronic pain; Z86.14 Personal history of Methicillin resistant Staphylococcus aureus infection; Z79.4 Long term (current) use of insulin; Z88.5 Allergy status to narcotic agent; Z88.6 Allergy status to analgesic agent; Z88.2 Allergy status to sulfonamides; Z88.8 Allergy status to other drugs, medicaments and biological substances; W05.0XXA Fall from non-moving wheelchair, initial encounter; Y93.89 Activity, other specified; Y92.89 Other specified places as the place of occurrence of the external cause; Y99.8 Other external cause status

== ENCOUNTER → 2018-01-30 | Outpatient (CLI) | payer MEDICARE, MEDICAID ==
[~2018-01-30] MED LIST changes: +CARVEDILOL3.125 MG PO; +HYDROCODON-ACE1 EAC7 PO; +VENELEX OINTMEN60 GM INTRADERM
== END ==
LOC: M.WC 01:55
DX: T87.89 Other complications of amputation stump (principal); E11.621 Type 2 diabetes mellitus with foot ulcer; I70.245 Atherosclerosis of native arteries of left leg with ulceration of other part of foot; L97.521 Non-pressure chronic ulcer of other part of left foot limited to breakdown of skin; S90.411A Abrasion, right great toe, initial encounter; E11.69 Type 2 diabetes mellitus with other specified complication; M86.8X8 Other osteomyelitis, other site; E11.51 Type 2 diabetes mellitus with diabetic peripheral angiopathy without gangrene; E11.40 Type 2 diabetes mellitus with diabetic neuropathy, unspecified; E66.9 Obesity, unspecified; E78.5 Hyperlipidemia, unspecified; I10 Essential (primary) hypertension; M81.0 Age-related osteoporosis without current pathological fracture; F32.9 Major depressive disorder, single episode, unspecified; F03.90 Unspecified dementia, unspecified severity, without behavioral disturbance, psychotic disturbance, mood disturbance, and anxiety; Z87.891 Personal history of nicotine dependence; Z86.73 Personal history of transient ischemic attack (TIA), and cerebral infarction without residual deficits; X58.XXXA Exposure to other specified factors, initial encounter; Y93.89 Activity, other specified; Y92.89 Other specified places as the place of occurrence of the external cause; Y99.8 Other external cause status; Y83.5 Amputation of limb(s) as the cause of abnormal reaction of the patient, or of later complication, without mention of misadventure at the time of the procedure

== ENCOUNTER → 2018-02-13 | Outpatient (CLI) | payer MEDICARE, MEDICAID | LOC: M.WC 04:26 | DX: E11.42 Type 2 diabetes mellitus with diabetic polyneuropathy (principal); T87.89 Other complications of amputation stump; E11.621 Type 2 diabetes mellitus with foot ulcer; L97.521 Non-pressure chronic ulcer of other part of left foot limited to breakdown of skin; I70.245 Atherosclerosis of native arteries of left leg with ulceration of other part of foot; S90.411A Abrasion, right great toe, initial encounter; S90.414A Abrasion, right lesser toe(s), initial encounter; E11.51 Type 2 diabetes mellitus with diabetic peripheral angiopathy without gangrene; E11.69 Type 2 diabetes mellitus with other specified complication; M86.8X8 Other osteomyelitis, other site; E66.9 Obesity, unspecified; E78.5 Hyperlipidemia, unspecified; I10 Essential (primary) hypertension; M19.90 Unspecified osteoarthritis, unspecified site; M81.0 Age-related osteoporosis without current pathological fracture; F32.9 Major depressive disorder, single episode, unspecified; F03.90 Unspecified dementia, unspecified severity, without behavioral disturbance, psychotic disturbance, mood disturbance, and anxiety; Z86.73 Personal history of transient ischemic attack (TIA), and cerebral infarction without residual deficits; Z87.891 Personal history of nicotine dependence; X58.XXXA Exposure to other specified factors, initial encounter; Y93.89 Activity, other specified; Y92.89 Other specified places as the place of occurrence of the external cause; Y99.8 Other external cause status; Y83.5 Amputation of limb(s) as the cause of abnormal reaction of the patient, or of later complication, without mention of misadventure at the time of the procedure ==

== ENCOUNTER → 2018-02-20 | Outpatient (CLI) | payer MEDICARE, MEDICAID | LOC: M.WC 02:59 | DX: T87.89 Other complications of amputation stump (principal); E11.621 Type 2 diabetes mellitus with foot ulcer; I70.245 Atherosclerosis of native arteries of left leg with ulceration of other part of foot; L97.521 Non-pressure chronic ulcer of other part of left foot limited to breakdown of skin; S91.101D Unspecified open wound of right great toe without damage to nail, subsequent encounter; S91.104D Unspecified open wound of right lesser toe(s) without damage to nail, subsequent encounter; E11.51 Type 2 diabetes mellitus with diabetic peripheral angiopathy without gangrene; E11.40 Type 2 diabetes mellitus with diabetic neuropathy, unspecified; E78.5 Hyperlipidemia, unspecified; E66.9 Obesity, unspecified; I10 Essential (primary) hypertension; M19.90 Unspecified osteoarthritis, unspecified site; M81.0 Age-related osteoporosis without current pathological fracture; F32.9 Major depressive disorder, single episode, unspecified; F03.90 Unspecified dementia, unspecified severity, without behavioral disturbance, psychotic disturbance, mood disturbance, and anxiety; Z95.820 Peripheral vascular angioplasty status with implants and grafts; Z86.73 Personal history of transient ischemic attack (TIA), and cerebral infarction without residual deficits; Z87.891 Personal history of nicotine dependence; X58.XXXD Exposure to other specified factors, subsequent encounter; Y83.5 Amputation of limb(s) as the cause of abnormal reaction of the patient, or of later complication, without mention of misadventure at the time of the procedure ==

== ENCOUNTER → 2018-02-26 | Outpatient (CLI) | payer MEDICARE, MEDICAID ==
[2018-02-26] VITALS (7 sets, daily range): BP systolic 130–151; BP diastolic 38–68
[~2018-02-26] VITALS: Ht 165.1 cm; Wt 70.3 kg
[2018-02-26 10:23] LABS: HEMATOCRIT 30.3 % (37.0-47.0); HEMOGLOBIN 9.8 gm/dL (12.0-15.0); MCHC 32.2 g/dL (28.0-37.0); MPV 8.8 fl. (7.2-11.1); RBC 3.49 mil/uL (4.20-5.00); WBC 10.5 thou/uL (4.0-11.0)
[2018-02-26 10:33] LABS: CALCIUM 9.1 mg/dL (8.5-10.1); CREATININE 1.8 mg/dL (0.6-1.3); POTASSIUM 5.6 mmol/L (3.5-5.1)
[2018-02-26 10:34] LABS: APTT 34.5 Seconds (25.0-31.3); INR 1.1
--- NOTE | 2018-02-26 15:55 | OP ---
[address] [address] OPERATIVE REPORT Name: TARSHA VILLA Room: [facility]#: [id number] Admission: 02/26/18 Attend Phys: Edy Beal DO Discharge: Date of : 31 Report #: [id number] THIS REPORT FOR: //name// CC: Edy Lacey DATE OF SERVICE: 02/26/2018 PREOPERATIVE DIAGNOSIS: Critical right lower extremity ischemia with nonhealing foot wounds. POSTOPERATIVE DIAGNOSIS: Critical right lower extremity ischemia with nonhealing foot wounds. OPERATION: 1. Ultrasound-guided access of left common femoral artery. 2. Aortoiliofemoral angiogram. 3. Third order selective right lower extremity angiogram. 4. Retrograde access to the right anterior tibial artery using ultrasound guidance. SURGEON: Edy Beal DO. PHARMACEUTICAL PROCESS ENGINEER: KAROL Christopher. ANESTHESIA: Sedation with local. ESTIMATED BLOOD LOSS: 100 mL. FLUIDS: 200 crystalloid. URINE OUTPUT: None. SPECIMENS: None. COMPLICATIONS: None. FINDINGS: Ultrasound demonstrated left common femoral artery to be soft and compressible with some moderate posterior wall plaque, was suitable for access. Initial aortogram demonstrated patent left renal artery, right renal artery could not be visualized, patent infrarenal aorta with some mild to moderate atherosclerotic disease in the distal aorta, patent bilateral common internal and external iliac arteries with some moderate atherosclerotic disease. Patent right common femoral and deep femoral with some mild atherosclerotic disease, right superficial femoral artery origin appeared occluded with reconstitution just distal to the SFA, moderate to moderately severe diffuse SFA popliteal [address] [address] OPERATIVE REPORT Name: TARSHA VILLA Room: [facility]#: [id number] Admission: 02/26/18 Attend Phys: Edy Beal DO Discharge: Date of : 31 Report #: [id number] disease. She has single vessel anterior tibial runoff artery into the foot, which has mild diffuse disease. Tibioperoneal trunk, posterior tibial and peroneal arteries are patent initially, but then they peter out and become very diminutive as they transition in the calf. Attempted antegrade access across the SFA origin, but could not engage the vessel. After gaining retrograde access, could not get across the origin and created a retrograde dissection, was unable to gain reentry intraluminally. Therefore, the procedure was terminated at this point. She would likely need a femoral endarterectomy and right lower extremity angiogram for limb salvage. CLINICAL HISTORY: The patient is an 87-year-old woman with known severe peripheral vascular disease. She had nonhealing wounds of her left lower extremity, required percutaneous intervention in November, which showed signs of healing. She now presents with nonhealing right foot wounds, recommended for angiogram and intervention. DESCRIPTION OF PROCEDURE: After informed consent was obtained, the patient was taken to the angio suite, placed on the angio bed in supine position. Bilateral groins were prepped and draped in the usual sterile fashion. Full timeout was performed identifying correct patient and procedure. Using ultrasound guidance, the left common femoral artery was identified. The skin and subcutaneous tissues were anesthetized with local anesthetic. The common femoral artery was accessed with micropuncture needle. These ultrasound images were preserved. Using Seldinger technique, a microwire and microsheath were placed, ultimately upsized to a 6-Ugandan sheath over a Bentson guidewire. Advanced the flush catheter over the Bentson wire in the infrarenal aorta and performed aortoiliofemoral angiogram with the findings noted above. I then obtained up and over access across the bifurcation, positioned catheter in the right common femoral artery, performed the selective right lower extremity angiogram with the findings noted above. Again, this appeared to have superficial femoral artery origin occlusion with reconstitution just distal to this. Again, there was diffuse moderate to moderately severe disease throughout the SFA and popliteal with a single vessel anterior tibial artery runoff to the foot. At this point, I administered 8000 units of intravenous heparin, advanced a 6-Ugandan up and over sheath. Used multiple combinations of 0.35, 0.018, 0.14 wires and different catheters multiple times to engage the SFA origin from an antegrade approach, but was unable to engage the SFA origin or gain a subintimal access. At this point, I then prepped the right foot. Again, infiltrated the skin and subcutaneous tissues with lidocaine anesthetic. Again, using ultrasound guidance accessed the anterior tibial artery with a micropuncture needle, again preserving the ultrasound images, again using Seldinger technique, the microsheath was placed over the wire and then ultimately was able to advance the 0.018 wire up the yuhaaviatam AT, popliteal and SFA vessels. This was followed by a bareback Progreat catheter. I then attempted to cross the SFA origin occlusion, but was unable to cross with the 0.018 wire or the 0.[address] [address] OPERATIVE REPORT Name: TARSHA VILLA Room: [facility] Andre#: [id number] Admission: 02/26/18 Attend Phys: Edy Beal DO Discharge: Date of : 31 Report #: [id number] well. I then created a retrograde dissection with the 0.018 wire, again was unable to get intraluminal position within the common femoral artery. At this point, I was unable to get antegrade or retrograde intraluminal access across the SFA origin lesion, therefore the procedure was terminated. I then exchanged out for a short 6-Ugandan sheath in the left groin, deployed a 6-Ugandan Mynx closure device in standard fashion, partially reversed the heparin with 40 mg of protamine, removed the wire and the catheter from the anterior tibial artery access as well. I held manual pressure there for 10 minutes in both the groin and the AT. Once hemostasis was ensured, sterile dressing was applied. All sponge, sharp and instrument counts reported correct x 2. She tolerated the procedure well and was transferred back to recovery in stable condition. At this point, I believe that she will likely require femoral endarterectomy with right lower extremity angiogram and intervention if we want to pursue limb salvage. Otherwise, I do believe that she could heal below-knee or above-knee amputation. <ELECTRONICALLY SIGNED> By: Edy Beal DO 02/26/18 1555 1413 [id number] Beal DO /nt
== END | disposition home or self-care (01) ==
LOC: M.INT 09:39
PROVIDERS: Surgery
DX: M62.261 Nontraumatic ischemic infarction of muscle, right lower leg (principal); I70.235 Atherosclerosis of native arteries of right leg with ulceration of other part of foot; L97.518 Non-pressure chronic ulcer of other part of right foot with other specified severity; G89.29 Other chronic pain; E11.9 Type 2 diabetes mellitus without complications; I10 Essential (primary) hypertension; M19.90 Unspecified osteoarthritis, unspecified site; F03.90 Unspecified dementia, unspecified severity, without behavioral disturbance, psychotic disturbance, mood disturbance, and anxiety; M81.0 Age-related osteoporosis without current pathological fracture; F32.9 Major depressive disorder, single episode, unspecified; Z86.73 Personal history of transient ischemic attack (TIA), and cerebral infarction without residual deficits; E66.09 Other obesity due to excess calories; Z98.890 Other specified postprocedural states; Z79.899 Other long term (current) drug therapy; Z79.01 Long term (current) use of anticoagulants; Z87.440 Personal history of urinary (tract) infections; Z88.2 Allergy status to sulfonamides; Z88.6 Allergy status to analgesic agent; Z79.82 Long term (current) use of aspirin

== ENCOUNTER → 2018-02-27 | Outpatient (CLI) | payer MEDICARE, MEDICAID | LOC: M.WC 03:08 | DX: S91.101D Unspecified open wound of right great toe without damage to nail, subsequent encounter (principal); S91.104D Unspecified open wound of right lesser toe(s) without damage to nail, subsequent encounter; E11.51 Type 2 diabetes mellitus with diabetic peripheral angiopathy without gangrene; E11.40 Type 2 diabetes mellitus with diabetic neuropathy, unspecified; E11.69 Type 2 diabetes mellitus with other specified complication; M86.672 Other chronic osteomyelitis, left ankle and foot; E66.9 Obesity, unspecified; E78.5 Hyperlipidemia, unspecified; I10 Essential (primary) hypertension; M81.0 Age-related osteoporosis without current pathological fracture; M19.90 Unspecified osteoarthritis, unspecified site; F03.90 Unspecified dementia, unspecified severity, without behavioral disturbance, psychotic disturbance, mood disturbance, and anxiety; F32.9 Major depressive disorder, single episode, unspecified; Z86.73 Personal history of transient ischemic attack (TIA), and cerebral infarction without residual deficits; Z87.891 Personal history of nicotine dependence; X58.XXXD Exposure to other specified factors, subsequent encounter ==

== ENCOUNTER 2018-03-08 08:05 | Inpatient (IN) | payer MEDICARE, MEDICAID ==
[~2018-03-08] VITALS: Ht 162.6 cm; Wt 73.7 kg
[2018-03-08] VITALS (12 sets, daily range): BP systolic 94–138; BP diastolic 44–62
[2018-03-08 11:23] LABS: CREATININE 2.4 mg/dL (0.6-1.3); POTASSIUM 5.4 mmol/L (3.5-5.1)
[2018-03-08 17:48] LABS: HEMATOCRIT 20.2 % (37.0-47.0)
[2018-03-08 17:54] LABS: HEMOGLOBIN 6.4 gm/dL (12.0-15.0)
[2018-03-08 17:55] LABS: CALCIUM 7.7 mg/dL (8.5-10.1); CREATININE 2.3 mg/dL (0.6-1.3); POTASSIUM 5.4 mmol/L (3.5-5.1)
[2018-03-09] VITALS (23 sets, daily range): BP systolic 94–161; BP diastolic 40–68
[2018-03-09 04:51] LABS: HEMATOCRIT 25.1 % (37.0-47.0); HEMOGLOBIN 8.1 gm/dL (12.0-15.0); MCH 29.5 pg (26.0-34.0); MCHC 32.4 g/dL (28.0-37.0); MCV 91.2 fL (80.0-100.0); MPV 9.4 fl. (7.2-11.1); RBC 2.75 mil/uL (4.20-5.00); RDW-CV 15.8 % (10.5-14.5)
[2018-03-09 05:02] LABS: ALBUMIN 2.1 g/dL (3.4-5.0); CALCIUM 8.1 mg/dL (8.5-10.1); CREATININE 2.3 mg/dL (0.6-1.3); MAGNESIUM 2.1 mg/dL (1.8-2.4); POTASSIUM 5.7 mmol/L (3.5-5.1); TOTAL BILIRUBIN 0.5 mg/dL (<0.1-1.0); TOTAL PROTEIN 6.3 g/dL (6.4-8.2)
--- NOTE | 2018-03-09 08:25 | OP ---
[facility] [address] [place] [address] OPERATIVE REPORT Name: TARSHA VILLA Room: [address] IN [facility].#: [id number] Admission: 03/08/18 Attend Phys: Sharla Del Valle Discharge: Date of : 31 Report #: [id number] THIS REPORT FOR: //name// CC: Edy Coronel DATE OF SERVICE: 03/08/2018 PREOPERATIVE DIAGNOSIS: Critical right lower extremity ischemia. POSTOPERATIVE DIAGNOSIS: Critical right lower extremity ischemia. OPERATION: 1. Right superficial femoral endarterectomy with patch angioplasty. 2. Right lower extremity angiogram through the right femoral artery. 3. Right anterior tibial artery angioplasty. 4. Right SFA and popliteal artery angioplasty with a Lutonix drug-coated balloon. SURGEON: Edy Beal DO. WOOD CREW SUPERVISOR: KAROL Chavez. ANESTHESIA: General. ESTIMATED BLOOD LOSS: 250 mL. FLUIDS: 900 crystalloid. URINE OUTPUT: 450 mL. SPECIMENS: Right femoral plaque. IMPLANTS: A 0.8 x 8 bovine pericardial patch in the right femoral artery. COMPLICATIONS: None. FINDINGS: She had a proximal right superficial femoral artery occlusion. This endarterectomized well. Right lower extremity angiogram demonstrated patent right common femoral, deep femoral artery with some moderate atherosclerotic disease. Right superficial femoral artery was patent. Popliteal artery was patent with moderate to moderately severe diffuse atherosclerotic disease. Her tibial artery was sole runoff into the foot. 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 Following angioplasty of the anterior tibial, popliteal, and superficial femoral artery, there was a good result with some [facility] [address] [place] [id number] OPERATIVE REPORT Name: ALLENTARSHA C Room: [address] IN [facility].#: [id number] Admission: 03/08/18 Attend Phys: Sharla Del Valle Discharge: Date of : 31 Report #: [id number] mild residual stenosis and jehovah's witness of inline flow into the foot. CLINICAL HISTORY: The patient is an 87-year-old woman with critical right lower extremity ischemia. She has got multiple nonhealing wounds in the right foot. She had previous attempted percutaneous intervention to revascularize the right lower extremity, but could not cross the superficial femoral artery occlusion. Therefore, she was brought in today for Hybrid intervention for attempted limb salvage. DETAILS OF PROCEDURE: After informed consent was obtained, the patient was taken to the operating room, placed on the OR bed in supine position. She was administered general anesthesia by the Anesthesia team. The right lower extremity was prepped and draped in usual sterile fashion. A full timeout was performed identifying correct patient and procedure. Next, a longitudinal incision made in the right groin. Dissection was carried down through skin and subcutaneous tissues, both sharp and electrocautery. The femoral artery was identified and circumferentially mobilized with proximal and distal control with Silastic vessel loop. She had a high femoral bifurcation that was well up underneath the inguinal ligament. I was able to isolate out the distal common femoral artery and the deep femoral artery at that level and controlled with Silastic vessel loops in Odonnell fashion as well. I then administered 5000 units of intravenous heparin. This allowed to circulate for 3 minutes and then sequentially clamped the arteries and made a longitudinal arteriotomy in the superficial femoral artery and extended on to the distal common femoral artery and extended down to normal patent area of the superficial femoral artery. I then performed endarterectomy and then patch angioplasty with a 0.8 x 8 bovine pericardial patch with running 5-0 Prolene suture. Prior to completion of the suture line, the artery was allowed to form backbleed and flushed with heparinized saline. I then completed the patch and restored flow down the deep femoral artery and then down the superficial femoral artery after several heartbeats. I then punctured the patch in antegrade direction with micropuncture needle under direct vision. I then exchanged out using Seldinger technique for micro sheath. I then performed the right lower extremity angiogram with findings noted above. I then exchanged out for a Glidewire Advantage and was able to navigate this down to the anterior tibial artery and exchanged out for a 6-Ukrainian sheath. Followup imaging confirmed an intraluminal position within the anterior tibial artery. I then exchanged out for an 0.014 wire and serial angioplasty of the anterior tibial and popliteal artery with 3 mm, and the popliteal artery and the superficial femoral artery subsequently with a 4 mm Lutonix drug-coated balloons over multiple inflations. Once angioplasty was completed, I then performed a completion angiogram, which demonstrated jehovah's witness of inline flow into the anterior tibial artery. She had good anterior tibial artery Doppler signal. Satisfied with the result, the patch was then closed with 5-0 Prolene after removing the wire and the sheath. The heparin was partially reversed with 40 mg protamine. Once hemostasis was ensured, the wound was irrigated with antibiotic solution and closed in layers [address] [address] OPERATIVE REPORT Name: TARSHA VILLA Room: [address]#: [id number] Admission: 03/08/18 Attend Phys: Sharla Del Valle Discharge: Date of : 31 Report #: [id number] with 2-0 and 3-0 Vicryl and 4-0 Monocryl on the skin. Dermabond was applied. All sponge, sharp and instrument counts reported as correct x 2. She tolerated the procedure well and was transferred to recovery in stable condition. <ELECTRONICALLY SIGNED> By: Edy Beal DO 03/09/18 0825 1637 [id number] Beal DO /nt
--- NOTE | 2018-03-09 15:25 | NUR ---
ICU TX TO RM 204 VIA BED TELEPHONE REPORT GIVEN PATIENT SETTLED IN BED IN RM CALL LIGHT IN REACH AND INSTRUCTION GIVEN BED ALARM SET
--- NOTE | 2018-03-09 15:36 | NUR ---
PT ASSESSMENT CHARTED. VSS THROUGHOUT THE SHIFT. WOUND PICTURES TAKEN AND REDRESSED. WOUND CARE CONSULT CALLED. Q2H TURNS SIDE TO SIDE TO PREVENT FURTHER BREAKDOWN. LOW AIRLOSS ADDED TO ICU BED AND BOOTS PLACED ON PATIENT TO ALSO PREVENT FURTHER BREAKDOWN. PT HAD 1 FORMED STOOL AND SEVERAL LIQUID STOOLS THIS MORNING AFTER KAYEXALATE WAS GIVEN. PT HAD PATIENT UP AT THE SIDE OF THE BED BUT IS UNABLE TO BEAR WEIGHT ON HER LE. SHELTER CALLED BY PT AND IS A PIVOT TRANSFER TO HER WHEEL CHAIR. PT UNABLE TO RATE PAIN BUT WAS NOTED TO GRIMACE WHEN MOVED SIDE TO SIDE. COMPLETE BED BATH GIVEN THIS MORNING. REPORT GIVEN TO TELEMETRY NURSE AND PATIENT TRANSPORTED TO 204 BY BED AT 1500.
[2018-03-10] VITALS: BP 111/52
--- NOTE | 2018-03-10 02:27 | NUR ---
PATIENT RESTED IN BED, NO ACUTE CHANGES. PATIENT DID NOT SHOW SIGNS OF DISTRESS. FALL PRECAUTIONS IN PLACE, BED ALARM ON, CALL LIGHT WITH IN REACH, HOURLY ROUNDING OBSERVED.
[2018-03-10 04:00] VITALS: BP 135/56
[2018-03-10 04:35] LABS: HEMATOCRIT 22.1 % (37.0-47.0); HEMOGLOBIN 7.1 gm/dL (12.0-15.0); MCH 29.2 pg (26.0-34.0); MCV 91.2 fL (80.0-100.0); MPV 9.3 fl. (7.2-11.1); NUCLEATED RBCS 0 /100WBC; PLATELET COUNT* 187 thou/uL (150-400); RBC 2.43 mil/uL (4.20-5.00); RDW-CV 15.4 % (10.5-14.5); WBC 17.3 thou/uL (4.0-11.0)
[2018-03-10 04:50] LABS: CALCIUM 7.5 mg/dL (8.5-10.1); PHOSPHORUS* 3.5 mg/dL (2.5-4.9); URIC ACID* 7.2 mg/dL (2.6-7.2)
[2018-03-10 05:07] LABS: POTASSIUM 3.5 mmol/L (3.5-5.1)
[2018-03-10 06:10] LABS: ABSOLUTE LYMPHOCYTES 1.9 thou/uL (0.8-5.3); ABSOLUTE MONOCYTES 1.6 thou/uL (0.0-1.2); ABSOLUTE NEUTROPHILS 13.8 thou/uL (1.6-8.1); PLATELET ESTIMATE ADEQUATE
[2018-03-10 06:12] LABS: ANISOCYTOSIS 1+; HYPOCHROMASIA 2+; POLYCHROMASIA 2+
--- NOTE | 2018-03-10 07:20 | NUR ---
CHANGE OF SHIFT BEDSIDE REPORT GIVEN PATIENT SEEN AT BEDSIDE, IN BED RESTING ASSUMED PATIENT CARE
[2018-03-10 08:00] VITALS: BP 146/55
--- NOTE | 2018-03-10 08:55 | CON ---
[address] [address] CONSULTATION Name: TARSHA VILLA Room: [address] IN [facility].#: [id number] Admission: 03/08/18 Attend Phys: Sharla Del Valle Discharge: Date of : 31 Report #: [id number] THIS REPORT FOR: //name// CC: Edy Coronel HISTORY OF PRESENT ILLNESS: The patient is an 87-year-old female who was admitted yesterday for a femoral popliteal surgery. The patient does have advanced dementia, does not provide much history. She is a long-term care facility resident. She does have a profound vascular disease as evident by multiple digital amputations in the lower extremities. Preoperatively, her creatinine was found to be elevated at 2.4. It appears that her baseline creatinine is anywhere from 1.4-1.7. I do not see any evidence of any recent contrast studies. Amongst her medications at home, the patient was on lisinopril. She is on multiple medications though she does look visibly volume depleted. Her blood pressure has been high. We were asked to see the patient for the elevated creatinine. PAST MEDICAL HISTORY: Significant for dementia, dehydration, diabetes, history of UTI, chronic kidney disease stage 3 at baseline, peripheral vascular disease, multiple digital amputations, history of spinal stenosis, history of mitral aortic stenosis, chronic systolic congestive heart failure. HOME MEDICATIONS: Reviewed. There is an extensive list of medications and relevant amongst those include Lipitor, Mirapex, insulin, Remeron, Plavix, amlodipine, clonidine patch, Coreg and lisinopril, which is now being held. PERSONAL, SOCIAL AND FAMILY HISTORY: Reviewed. She is a nonsmoker. No alcohol reported. No pertinent family history. PHYSICAL EXAMINATION: VITAL SIGNS: Today, her blood pressure is 140/55, pulse is 80, temperature is 36.6. GENERAL: She is awake, answers questions, but does not provide any significant detail about her medical illness. LUNGS: Diminished bilaterally. HEART: She has regular S1 and S2. ABDOMEN: Distended, soft, postoperative incisions noted. EXTREMITIES: Shows no significant edema. SKIN: Very dry. LABORATORY DATA: This morning, white count is 16, hemoglobin is 8.1 up from 6.4 yesterday, platelets 229,000. Metabolic panel: Sodium is 143, potassium 5.7, [place] [address] CONSULTATION Name: ALLENTARSHA Santos Room: [address]#: [id number] Admission: 03/08/18 Attend Phys: Sharla Del Valle Discharge: Date of : 31 Report #: [id number] chloride is 110, bicarbonate 22, BUN 36, creatinine 2.3. AST, ALT, alkaline phosphatase elevated. Magnesium 2.1, glucose 103, albumin 2.1. IMAGING STUDIES: Ultrasound of the abdomen was done, which shows right renal atrophy and increased echogenicity, but left kidney was normal in size with no evidence of any hydronephrosis. ASSESSMENT AND PLAN: 1. Acute kidney injury and chronic kidney disease, stage 3. 2. Mention of angiograms during the procedure: Acute kidney injury could definitely be from the use of contrast as well as from the surgical stress of the procedure; however, the creatinine was elevated preoperatively also. 3. Hypertension. 4. Severe peripheral vascular disease with critical right leg ischemia prompting the procedure. 5. History of diabetes and heart failure. PLAN: 1. I agree with holding off on the NANCY inhibitors. 2. The patient needs volume replacement. She appears clinically volume depleted. 3. Normal saline at 100 mL an hour. 4. Urine for electrolytes. 5. I am concerned that the renal function may worsen over the next few days because of the contrast use. We will need very close follow up. Thank you for the consultation. We will follow. <ELECTRONICALLY SIGNED> By: Stepan Jimenez MD 03/10/18 0855 1221 [id number] Jimenez MD /nt
[2018-03-10 11:57] VITALS: BP 128/42
[2018-03-10 15:52] VITALS: BP 125/46
[2018-03-10 20:00] VITALS: BP 132/54
[2018-03-11] VITALS: BP 126/52
[2018-03-11 04:00] VITALS: BP 140/57
[2018-03-11 04:50] LABS: HEMATOCRIT 23.1 % (37.0-47.0); HEMOGLOBIN 7.3 gm/dL (12.0-15.0); MCH 29.1 pg (26.0-34.0); MCHC 31.5 g/dL (28.0-37.0); MCV 92.4 fL (80.0-100.0); MPV 9.5 fl. (7.2-11.1); RBC 2.5 mil/uL (4.20-5.00); RDW-CV 16.5 % (10.5-14.5); WBC 17.3 thou/uL (4.0-11.0)
[2018-03-11 05:14] LABS: CALCIUM 7.2 mg/dL (8.5-10.1); CREATININE 1.7 mg/dL (0.6-1.3); MAGNESIUM 1.9 mg/dL (1.8-2.4); POTASSIUM 3.3 mmol/L (3.5-5.1)
--- NOTE | 2018-03-11 06:45 | NUR ---
ASSUMED PT CARE AT 1930. NURSING ASSESSMENT COMPLETED AT START OF SHIFT. CARIDAC MONITOR IN PLACE, PT TRACING SR WITH BBB ON RIVETER HAND. Q2H REPOSITIONING COMPLETED. HOURLY ROUNDING COMPLETED. CALL LIGHT WITHIN REACH. PT SLOWLY PROGRESSING TOWARDS GOALS. VSS THIS SHIFT.
[2018-03-11 11:51] VITALS: BP 138/52
--- NOTE | 2018-03-11 13:06 | NUR ---
Nutrition: consult for "multiple wounds." RD familiar with pt. Nonhealing wounds on LLE. H/o DM, CVA, dementia, HTN. CHO controlled diet. Eating fair. Wt stable - 162#. Pt weighed 160# since October 2017. RX: insulin, carvedilol. Increased nutrient needs R/T protein as evidenced by multiple wounds, depleted protein stores. RD ordered Jeet. Recommend MVI. Encourage good HBV protein intake at meal times. Consider Mild risk.
[2018-03-11 14:41] LABS: ALBUMIN 1.5 g/dL (3.4-5.0); CALCIUM 7.2 mg/dL (8.5-10.1); CREATININE 1.7 mg/dL (0.6-1.3); POTASSIUM 3.2 mmol/L (3.5-5.1); TOTAL BILIRUBIN 0.4 mg/dL (<0.1-1.0); TOTAL PROTEIN 5.3 g/dL (6.4-8.2)
--- NOTE | 2018-03-11 15:50 | NUR ---
Pt asleep, left for Pt's dtr. Spoke with nurse liaison, Elif at [facility]. Pt is a LTC resident. [facility] [facility] and total care at LTC. LTC is able to accept Pt back at sc. Awaiting call back from Pt's dtr.
[2018-03-11 16:00] VITALS: BP 133/48
--- NOTE | 2018-03-11 17:27 | NUR ---
WOUND CARE NOTE: CONSULT RECEIVED FOR MULTIPLE WOUNDS. RIGHT FOREFOOT/1-3 TOES: ISCHEMIC WOUND. BLACK, DRY ESCHAR TO ENTIRETY OF THE WOUND. WOUND MEASURES 10X5. AFTER CLEANSING, PAINTED WITH BETADINE. RIGHT HEEL: ISCHEMIC WOUND. BLACK, DRY ESCHAR TO ENTIRETY OF THE WOUND. WOUND MEASURES 4X3.2. AFTER CLEANSING, PAINTED WITH BETADINE. RIGHT KNEE, SUPERIOR WOUND: DRY, YELLOW SLOUGH TISSUE, FIRMLY ADHERENT TO WOUND BED. MICHELE-WOUND WITH ERYTHEMA. WOUND MEASURES 1.1X1.3X0.1. AFTER CLEANSING, APPLIED OPTIFOAM AG AND SECURED WITH ROLL GAUZE. RIGHT KNEE, DISTAL WOUND: DRY, YELLOW SLOUGH TISSUE FIRMLY ADHERENT TO 80% OF WOUND BED. 20% PINK, MOIST, NON-GRANULAR TISSUE. MICHELE-WOUND WITH ERYTHEMA. WOUND MEASURES 1.2X1.3X0.1. AFTER CLEANSING, APPLIED OPTIFOAM AG AND SECURED WITH ROLL GAUZE. LEFT ISCHIAL TUBEROSITY: UNSTAGEABLE PRESSURE ULCER MEASURING 3.5X4.8X0.1. 100% OF WOUND BED COVERED WITH A YELLOW SLOUGH TISSUE. MICHELE-WOUND MACERATED. CLEANSED WOUND WITH WOUND CLEANSER, PATTED DRY. APPLIED OPTIFOAM AG AND SECURED WITH TEGADERM. RIGHT ISCHIAL TUBEROSITY: STAGE 3 PRESSURE ULCER MEASURING 3.5X3X0.1. 20% OF WOUND BED WITH YELLOW, MOIST, ADHERENT SLOUGH TISSUE. 80% OF WOUND BED PINK, MOIST, NON-GRANULAR TISSUE. MICHELE-WOUND MACERATED. CLEANSED WOUND WITH WOUND CLEANSER, PATTED DRY. APPLIED OPTIFOAM AG AND SECURED WITH TEGADERM. SACRUM: STAGE 2 PRESSURE ULCER MEASURING 2X3X0.1. PINK, MOIST, NON-GRANULAR TISSUE. MICHELE-WOUND MACERATED. CLEANSED WOUND WITH WOUND CLEANSER, PATTED DRY. APPLIED OPTIFOAM AG AND SECURED WITH TEGADERM. RECOMMEND TURN Q2 HOURS, KEEP OFF WOUNDS LIMIT LAYERS OF LINEN UNDER PATIENT LOW AIR LOSS MATTRESS LIMIT HOB <30 DEGREES ENCOURAGE GOOD NUTRTION/HYDRATION TIGHT BLOOD GLUCOSE CONTROL FOLLOW UP IN WOUND CENTER UPON DISCHARGE
--- NOTE | 2018-03-11 17:33 | NUR ---
PATIENT RESTING IN BED. Q2H TURNS FOR PRESSURE REDUCTION. LOW AIR LOSS BED ORDERED AND AWAITING DELIVERY. HOURLY ROUNIDNG COMPLETED FOR PATIENT SAFETY. VITAL SIGNS STABLE. EXTENSIVE WOUND CARE PERFORMED BY WOUND NURSE AND FLOOR NURSE.
--- NOTE | 2018-03-11 18:59 | NUR ---
at 17:40 PATIENT WAS NOTED TO BE IN SEVERE BRADYCARDIA WITH AGONAL BREATH AND AND NO PULSE PRESENT. MET TEAM CALLED AND PATIENT ASSESSED. PATIENT PRONOUCED AT 17:45 BY TWO NURSES. MTN NOTIFIED AND RESHMA IS [phone]. [facility] HOME NOIFIED, DAUGHTER STEVE NOTIFIED AT [phone]. PATIENT DISCONNECTED FROM MARIE, MONITOR, AND IV. PATIENT PREPARED FOR FAMILY VIEWING.
--- NOTE | 2018-03-11 22:50 | NUR ---
SPOKE TO DAUGHTER AT 2144, STATED OKAY TO RELEASE BODY TO HOME. PT RELEASED TO HOME AT 2244. PT TRANSFERED OUT VIA CART. BELONGINGS IN ROOM. FAMILY TO PICK THEM UP.
--- NOTE | 2018-03-13 10:10 | PATH ---
[address] [address] PATHOLOGY RPT PROCEDURE Name: TARSHA SALGADO Room: [address] IN [facility].#: [id number] Admission: 03/08/18 Date of : 31 Discharge: 03/11/18 Report #: [id number] Path Case #: [id number] [facility] Accession Number: [id number] . 01 Material submitted: . RIGHT FEMORAL PLAQUE . 01 Clinical history: . Atherosclerosis right leg . 02 Diagnosis: Right femoral plaque: - Fibrointimal atherosclerotic plaque with calcification and metaplastic bone formation. (DOT:kori; 03/12/2018) QMS/03/12/2018 . 02 Electronically signed: . Chester Garsia MD, Pathologist NPI- [id number] . 01 Gross description: . The specimen is received in formalin, labeled "Tarsha Salgado, right femoral plaque". Received are multiple segments of moderately calcified white-boucher rubbery tissue measuring 3.8 x 1.6 x 0.7 cm in aggregate dimensions. The specimen is submitted representatively in cassette A1, following light decalcification. (CAA; 03/11/2018) QAC/QAC . 02 Microscopic: . . . 02 Pathologist provided ICD-10: I70.202 . 02 CPT . 662479, [id number] Specimen Comment: A courtesy copy of this report has been sent to Specimen Comment: [phone], , . Specimen Comment: Report sent to ,DR BULLOCK / DR WHITING Specimen Comment: A duplicate report has been generated due to demographic updates. Performed at: [address] [id number] MD Duc Alberto MD Phone: [phone] Performed at: [address] [address] PATHOLOGY RPT PROCEDURE Name: TARSHA SALGADO Room: [address] IN [facility].#: [id number] Admission: 03/08/18 Date of : 31 Discharge: 03/11/18 Report #: [id number] Path Case #: [id number] [address] [id number] MD Chester Garsia MD Phone: [phone]
== END 2018-03-11 22:45 | DRG 252 ==
LOC: M.PRE 08:05 → M.2W 10:24 → M.TBA 10:24 → M.PRE 14:21 → M.ICU 18:11 → M.2W 03-09 15:02
PROVIDERS: Internal Medicine; Internal Medicine Nephrology; Physician Assistant Surgical; Surgery; ADMIT Internal Medicine
PROC: 04CK0ZZ Extirpation of Matter from Right Femoral Artery, Open Approach (ICD-10-PCS; principal; 2018-03-08)
PROC: 047M3Z1 Dilation of Right Popliteal Artery using Drug-Coated Balloon, Percutaneous Approach (ICD-10-PCS; principal; 2018-03-08)
PROC: B41F1ZZ Fluoroscopy of Right Lower Extremity Arteries using Low Osmolar Contrast (ICD-10-PCS; principal; 2018-03-08)
PROC: 047P3ZZ Dilation of Right Anterior Tibial Artery, Percutaneous Approach (ICD-10-PCS; principal; 2018-03-08)
PROC: 30233N1 Transfusion of Nonautologous Red Blood Cells into Peripheral Vein, Percutaneous Approach (ICD-10-PCS; principal; 2018-03-08)
PROC: 047K3Z1 Dilation of Right Femoral Artery using Drug-Coated Balloon, Percutaneous Approach (ICD-10-PCS; principal; 2018-03-08)
PROC: 04UK0KZ Supplement Right Femoral Artery with Nonautologous Tissue Substitute, Open Approach (ICD-10-PCS; principal; 2018-03-08)
DX: E11.51 Type 2 diabetes mellitus with diabetic peripheral angiopathy without gangrene (principal); N17.0 Acute kidney failure with tubular necrosis; E44.0 Moderate protein-calorie malnutrition; I13.0 Hypertensive heart and chronic kidney disease with heart failure and stage 1 through stage 4 chronic kidney disease, or unspecified chronic kidney disease; I50.22 Chronic systolic (congestive) heart failure; E87.0 Hyperosmolality and hypernatremia; E87.5 Hyperkalemia; E78.5 Hyperlipidemia, unspecified; M19.90 Unspecified osteoarthritis, unspecified site; L40.9 Psoriasis, unspecified; R32 Unspecified urinary incontinence; M81.0 Age-related osteoporosis without current pathological fracture; E66.9 Obesity, unspecified; F03.90 Unspecified dementia, unspecified severity, without behavioral disturbance, psychotic disturbance, mood disturbance, and anxiety; F32.9 Major depressive disorder, single episode, unspecified; N18.3 Chronic kidney disease, stage 3 (moderate); E11.22 Type 2 diabetes mellitus with diabetic chronic kidney disease; Z88.5 Allergy status to narcotic agent; Z88.2 Allergy status to sulfonamides; Z88.8 Allergy status to other drugs, medicaments and biological substances; Z79.82 Long term (current) use of aspirin; Z79.4 Long term (current) use of insulin; Z79.899 Other long term (current) drug therapy; Z90.710 Acquired absence of both cervix and uterus; Z87.440 Personal history of urinary (tract) infections; Z86.73 Personal history of transient ischemic attack (TIA), and cerebral infarction without residual deficits; Z22.322 Carrier or suspected carrier of Methicillin resistant Staphylococcus aureus; Z68.27 Body mass index [BMI] 27.0-27.9, adult